=== PATIENT | male | born 1970 | race American Indian/Alaskan Native ===

== ENCOUNTER 2020-01-13 19:14 | Observation (INO) | payer OTHER ==
[2020-01-13 21:16] LABS: Basophils # (Auto) 0.1 K/mm3 (0.0-0.1); Eosinophils % (Auto) 0.1 % (0.0-4.3); Hematocrit 42.5 % (35.5-45.6); Hemoglobin 14.7 gm/dl (11.8-15.2); Lymphocytes % (Auto) 30.2 % (13.4-35.0); Mean Corpuscular HGB Conc 35 % (32-34); Mean Corpuscular Volume 98 fl (84-94); Monocytes # (Auto) 0.3 K/mm3 (0.0-0.8); Monocytes % (Auto) 9.9 % (0.0-7.3); Platelet Count 132 K/mm3 (140-440); Red Blood Count 4.33 M/mm3 (3.65-5.03); Red Cell Distribution Width 15.2 % (13.2-15.2)
[2020-01-13 21:25] LABS: Alanine Aminotransferase 35 units/L (7-56); Albumin 3.7 g/dL (3.9-5); Blood Urea Nitrogen 8 mg/dL (9-20); Calcium 8.9 mg/dL (8.4-10.2); Hemolysis Index 9
[2020-01-13 21:35] LABS: BUN/Creatinine Ratio 13
--- NOTE | 2020-01-14 00:37 | Emergency Department Report ---
ED General Adult HPI - General Chief complaint: Abdominal Pain Stated complaint: SWOLLEN STOMACH AND LEGS PUI?: No Time Seen by Provider: 01/14/20 00:21 Source: patient Mode of arrival: Ambulatory Limitations: No Limitations - History of Present Illness Initial comments: Patient is a 49-year-old male that presents emergency room with complaints of abdominal distention. Patient states he was admitted to the hospital 6 weeks ag o for for the same abdominal swelling. Patient states this time however his abdomen is more swelling and his legs are swollen as well. Patient dates the last time was only his stomach. Patient states the swelling started approximately 1 week ago and is worsening. Patient states that he has a ful lness and a pressure to his abdomen. Patient states the discomfort is a 1 out of 10. Pain states is better with rest and worse with movement. Patient states last time he was here late night drainage they just gave him pills to decrease the ascites. Patient denies chest pain or shortness of breath. Patient denies fever and chills. Patient denies recent travel. Patient denies recent international travel. Patient denies exposure to the novel coronavirus. Patient denies sick contacts. Patient denies fever and chills. Patient denies cough. Patient denies diarrhea. Patient denies coming in contact with anybody with symptoms of the novel coronavirus. -: Sudden Severity scale (0 -10): 1 Quality: aching Consistency: constant Improves with: rest Worsens with: movement Associated Symptoms: denies: confusion, chest pain, cough, diaphoresis, fever/chills, headaches, loss of appetite, malaise, nausea/vomiting, rash, seizure, shortness of breath, syncope, weakness - Related Data Previous Rx's Medication Instructions Recorded Last Taken Type Albuterol Mdi (or & Nicu Only) 2 puff IH QID PRN #8.5 gram 11/21/19 Unknown Rx [ProAir HFA Inhaler] Budesonide/Formoterol Fumarate 10.2 gm IH BID #1 hfa.aer.ad 11/21/19 Unknown Rx [Symbicort 80-4.5 Mcg Inhaler] Fluconazole [Diflucan TAB] 200 mg PO QDAY #14 tablet 11/21/19 Unknown Rx Lidocaine Viscous 2% 15 ml PO Q8HR PRN 14 Days 11/21/19 Unknown Rx Metoprolol [Lopressor TAB] 25 mg PO BID #60 tablet 11/21/19 Unknown Rx Potassium Chloride [K-Dur] 20 meq PO QDAY #4 tablet 11/21/19 Unknown Rx Allergies Allergy/AdvReac Type Severity Reaction Status Date / Time No Known Allergies Allergy Verified 11/16/19 18:32 ED Review of Systems ROS: Stated complaint: SWOLLEN STOMACH AND LEGS Other details as noted in HPI Constitutional: denies: chills, fever Eyes: denies: eye pain, eye discharge, vision change ENT: denies: ear pain, throat pain Respiratory: denies: cough, shortness of breath, wheezing Cardiovascular: edema. denies: chest pain, palpitations Endocrine: no symptoms reported Gastrointestinal: as per HPI, abdominal pain, other. denies: nausea, vomiting, diarrhea Genitourinary: denies: urgency, dysuria Musculoskeletal: denies: back pain, joint swelling, arthralgia Skin: denies: rash, lesions Neurological: denies: headache, weakness, paresthesias Psychiatric: denies: anxiety, depression Hematological/Lymphatic: denies: easy bleeding, easy bruising ED Past Medical Hx - Past Medical History Previous Medical History?: Yes Hx COPD: Yes Additional medical history: Herpes 1 - Surgical History Past Surgical History?: Yes Additional Surgical History: left leg - Family History Family history: no significant - Social History Smoking Status: Current Every Day Smoker Substance Use Type: Marijuana - Medications Home Medications: Home Medications Medication Instructions Recorded Confirmed Last Taken Type Albuterol Mdi (or & Nicu Only) 2 puff IH QID PRN #8.5 gram 11/21/19 Unknown Rx [ProAir HFA Inhaler] Budesonide/Formoterol Fumarate 10.2 gm IH BID #1 hfa.aer.ad 11/21/19 Unknown Rx [Symbicort 80-4.5 Mcg Inhaler] Fluconazole [Diflucan TAB] 200 mg PO QDAY #14 tablet 11/21/19 Unknown Rx Lidocaine Viscous 2% 15 ml PO Q8HR PRN 14 Days 11/21/19 Unknown Rx Metoprolol [Lopressor TAB] 25 mg PO BID #60 tablet 11/21/19 Unknown Rx Potassium Chloride [K-Dur] 20 meq PO QDAY #4 tablet 11/21/19 Unknown Rx ED Physical Exam - General Limitations: No Limitations General appearance: alert, in no apparent distress - Head Head exam: Present: atraumatic, normocephalic - Eye Eye exam: Present: normal appearance - ENT ENT exam: Present: mucous membranes moist - Neck Neck exam: Present: normal inspection - Respiratory Respiratory exam: Present: normal lung sounds bilaterally. Absent: respiratory distress, chest wall tenderness, accessory muscle use, decreased breath sounds - Cardiovascular Cardiovascular Exam: Present: regular rate, normal rhythm. Absent: systolic murmur, diastolic murmur, rubs, gallop - GI/Abdominal GI/Abdominal exam: Present: soft, distended, normal bowel sounds. Absent: tenderness, guarding, rebound - Rectal Rectal exam: Present: deferred - Extremities Exam Extremities exam: Present: normal inspection, full ROM, pedal edema. Absent: tenderness, normal capillary refill, calf tenderness - Back Exam Back exam: Present: normal inspection - Neurological Exam Neurological exam: Present: alert, oriented X3 - Psychiatric Psychiatric exam: Present: normal affect, normal mood - Skin Skin exam: Present: warm, dry, intact, normal color. Absent: rash ED Course Vital Signs 01/13/20 01/14/20 19:48 00:38 Temperature 98.1 F Pulse Rate 100 H 96 H Respiratory 19 16 Rate Blood Pressure 121/98 Blood Pressure 142/110 [Right] O2 Sat by Pulse 92 98 Oximetry - Reevaluation(s) Reevaluation #1: I discussed all results with patient. I discussed plan of care with patient. Patient agrees with plan of care and admission. Patient to be admitted to the hospitalist service. 01/14/20 02:02 - Consultations Consultation #1: Hospitalist consulted for admission. Hospitalist to admit patient. 01/14/20 02:02 ED Medical Decision Making - Lab Data Result diagrams: 01/13/20 20:44 01/13/20 20:44 - Radiology Data Radiology results: report reviewed, image reviewed interpreted by me: CHF findings on chest x-ray. CHEST 1 VIEW INDICATION / CLINICAL INFORMATION: swelling. elvated bnp. COMPARISON: 11/18/2019 FINDINGS: SUPPORT DEVICES: None. HEART / MEDIASTINUM: No significant abnormality. LUNGS / PLEURA: Prominent interstitial markings No pneumothorax. ADDITIONAL FINDINGS: No significant additional findings. IMPRESSION: The interstitial markings are prominent but less so than on 11/18/2019. No other significant abnormality. - Medical Decision Making Patient is a 49-year-old male that presents emergency room with complaints of abdominal distention, lower extremity edema. Patient claims been going on for a week. Patient had this x6 weeks ago was seen in this hospital. Patient finding consistent with CHF, anasarca, interstitial markings on chest x-ray, lower extremity edema. Patient's labs unremarkable except for hyponatremia and abnormal came and elevated BNP. patient admitted to the hospitalist service. - Differential Diagnosis CHF, anasarca, edema swelling, abdominal distention Critical Care Time: Yes Critical care time in (mins) excluding proc time.: 35 Critical care attestation.: If time is entered above; I have spent that time in minutes in the direct care of this critically ill patient, excluding procedure time. Critical Care Time: 35 minutes ED Disposition Clinical Impression: Acute hyponatremia, Anasarca, Lower extremity edema, Abdominal distention CHF (congestive heart failure) Qualifiers: Heart failure type: unspecified Heart failure chronicity: acute Qualified Code(s): I50.9 - Heart failure, unspecified Abdominal pain Qualifiers: Abdominal location: generalized Qualified Code(s): R10.84 - Generalized abdominal pain Disposition: -09 OP ADMIT IP TO THIS HOSP Is pt being admited?: Yes Does the pt Need Aspirin: No Condition: Critical Time of Disposition: 02:00
--- NOTE | 2020-01-14 01:45 | XRay Report ---
CHEST 1 VIEW INDICATION / CLINICAL INFORMATION: swelling. elvated bnp. COMPARISON: 11/18/2019 FINDINGS: SUPPORT DEVICES: None. HEART / MEDIASTINUM: No significant abnormality. LUNGS / PLEURA: Prominent interstitial markings No pneumothorax. ADDITIONAL FINDINGS: No significant additional findings. IMPRESSION: The interstitial markings are prominent but less so than on 11/18/2019. No other significant abnormali ty. Signer Name: Mika Caballero MD FACR Signed: 01/14/2020 1:41 AM Workstation Name: [email or web address]
[2020-01-14] MEDS ORDERED: ACETAMINOPHEN 325 MG TAB PO PRN (02:08)
[2020-01-14] MEDS ORDERED: MAGNESIUM HYDROXIDE (MOM) ORAL LIQD UDC PO PRN (02:08)
[2020-01-14] MEDS ORDERED: ONDANSETRON 4 MG/2 ML INJ IV PRN (02:08)
--- NOTE | 2020-01-14 02:20 | History and Physical Report ---
History of Present Illness Date of examination: 01/14/20 Date of admission: 01/14/2020 Chief complaint: Lower extremity swelling Abdominal swelling History of present illness: 49-year-old -[place] male with known history of CHF, COPD presents to the emergency room today complaining of lower extremity swelling and abdominal swelling. Swelling has been ongoing for about a week and has been having fullness and pressure around his abdomen. Patient denies any chest pain, no nausea vomiting, no shortness of breath, no fever or chills, no headache or dizziness. Patient denies any sick contacts and no recent travel. He denies any contact with anyone with COVID-19. Patient was recently diagnosed with CHF and was supposed to follow-up with [facility] but has not had a chance to make an appointment. Work-up in the emergency room today reveals elevated BNP and also pulmonary edema on the chest x-ray Past History Past Medical History: COPD, other (Herpes 1) Past Surgical History: Other (Left leg surgery) Social history: smoking (Current daily smoking), other (Occasional Marijuana) Family history: no significant family history Medications and Allergies Allergies Allergy/AdvReac Type Severity Reaction Status Date / Time No Known Allergies Allergy Verified 11/16/19 18:32 Home Medications Medication Instructions Recorded Confirmed Last Taken Type Albuterol Mdi (or & Nicu Only) 2 puff IH QID PRN #8.5 gram 11/21/19 Unknown Rx [ProAir HFA Inhaler] Budesonide/Formoterol Fumarate 10.2 gm IH BID #1 hfa.aer.ad 11/21/19 Unknown Rx [Symbicort 80-4.5 Mcg Inhaler] Fluconazole [Diflucan TAB] 200 mg PO QDAY #14 tablet 11/21/19 Unknown Rx Lidocaine Viscous 2% 15 ml PO Q8HR PRN 14 Days 11/21/19 Unknown Rx Metoprolol [Lopressor TAB] 25 mg PO BID #60 tablet 11/21/19 Unknown Rx Potassium Chloride [K-Dur] 20 meq PO QDAY #4 tablet 11/21/19 Unknown Rx Active Meds: Active Medications Acetaminophen (Tylenol) 650 mg PO Q4H PRN PRN Reason: Pain MILD(1-3)/Fever >100.5/CRAIG Furosemide (Lasix) 40 mg IV BID@0600,1800 CONSUELO Heparin Sodium (Porcine) (Heparin) 5,000 unit SUB-Q Q8HR CONSUELO Magnesium Hydroxide (Milk Of Magnesia) 30 ml PO Q4H PRN PRN Reason: Constipation Ondansetron HCl (Zofran) 4 mg IV Q8H PRN PRN Reason: Nausea And Vomiting Sodium Chloride (Sodium Chloride Flush Syringe 10 Ml) 10 ml IV BID CONSUELO Sodium Chloride (Sodium Chloride Flush Syringe 10 Ml) 10 ml IV PRN PRN PRN Reason: LINE FLUSH Review of Systems Constitutional: no fever, no chills Ears, nose, mouth and throat: no nasal congestion, no sore throat Cardiovascular: leg edema, no chest pain, no palpitations Respiratory: no cough, no shortness of breath Gastrointestinal: no abdominal pain, no nausea, no vomiting, no diarrhea Genitourinary Male: no dysuria, no hematuria Musculoskeletal: no neck pain, no low back pain Integumentary: no rash, no pruritis Neurological: no headaches, no confusion Exam - Constitutional Vitals: Temp Pulse Resp BP Pulse Ox 98.1 F 96 H 16 142/110 98 01/13/20 19:48 01/14/20 00:38 01/14/20 00:38 01/14/20 00:38 01/14/20 00:38 General appearance: Present: no acute distress, well-nourished - EENT Eyes: Present: PERRL, EOM intact ENT: hearing intact, clear oral mucosa, dentition normal - Neck Neck: Present: supple, normal ROM - Respiratory Respiratory effort: normal Respiratory: bilateral: CTA - Cardiovascular Rhythm: regular Heart Sounds: Present: S1 & S2. Absent: gallop, systolic murmur, diastolic murmur, rub - Extremities Extremities: no ischemia, Full ROM Extremity abnormal: edema (1+ bilateral lower extremity edema), clubbing (finger) Peripheral Pulses: within normal limits - Abdominal General gastrointestinal: Present: soft, non-tender, distended (Mildly d istended.), normal bowel sounds - Integumentary Integumentary: Present: clear, warm, dry - Musculoskeletal Musculoskeletal: strength equal bilaterally - Psychiatric Psychiatric: appropriate mood/affect, intact judgment & insight - Neurologic Neurologic: CNII-XII intact, no focal deficits, moves all extremities Results - Labs CBC & Chem 7: 01/13/20 20:44 01/13/20 20:44 Labs: Abnormal lab results 01/13/20 01/13/20 Range/Units 20:44 20:44 WBC 3.2 L (4.5-11.0) K/mm3 MCV 98 H (84-94) fl MCH 34 H (28-32) pg MCHC 35 H (32-34) % Plt Count 132 L (140-440) K/mm3 [place]air % (Auto) 9.9 H (0.0-7.3) % Lymph # 1.0 L (1.2-5.4) K/mm3 Sodium 124 L (137-145) mmol/L Potassium 3.5 L (3.6-5.0) mmol/L Chloride 87.2 L (98-107) mmol/L BUN 8 L (9-20) mg/dL Creatinine 0.6 L (0.8-1.3) mg/dL Glucose 74 L (75-100) mg/dL Total Bilirubin 2.50 H (0.1-1.2) mg/dL AST 65 H (5-40) units/L NT-Pro-B Natriuret Pep 3058 H (0-900) pg/mL Albumin 3.7 L (3.9-5) g/dL Assessment and Plan - Patient Problems (1) CHF (congestive heart failure) Current Visit: Yes Status: Acute Qualifiers: Heart failure type: unspecified Heart failure chronicity: acute Qualified Code(s): I50.9 - Heart failure, unspecified Plan to address problem: Patient admitted and placed on telemetry. Will place on diuretics and monitor input and output. Will also monitor daily weights. Patient will be scheduled for echocardiogram. (2) DVT prophylaxis Current Visit: No Status: Acute Plan to address problem: Patient placed on subcutaneous heparin (3) Full code status Current Visit: No Status: Acute
[2020-01-14 02:51] LABS: Creatine Kinase MB 4.7 ng/mL (0.0-4.0)
[2020-01-14] MEDS: FUROSEMIDE 40 MG/4 ML INJ IV SCH ×2 (05:54→17:07)
[2020-01-14] MEDS: HEPARIN 5,000 UNIT/1 ML VIAL SUB-Q SCH ×3 (05:54→22:09)
--- NOTE | 2020-01-14 10:52 | Event Note ---
Date: 01/14/20 Patient seen and examined. This is a follow-up from an admission earlier this morning. We will continue to plan as outlined in H&P. Total visit time equals 35 minutes with greater than 50% spent on coordination of care and counseling.
--- NOTE | 2020-01-14 11:43 | Progress Note ---
Subjective Date of service: 01/14/20 Interval history: CONSULT DICTATED Objective Vital Signs Temp Pulse Pulse Pulse Resp BP BP 01/14/20 11:09 89 120/91 01/14/20 10:10 87 87 17 01/14/20 07:17 97.9 F 91 H 18 146/102 01/14/20 05:01 20 01/14/20 03:18 98.1 F 93 H 20 151/110 01/14/20 03:09 92 H 01/14/20 00:38 96 H 16 142/110 01/13/20 19:48 98.1 F 100 H 19 121/98 Pulse Ox 01/14/20 11:09 91 01/14/20 10:10 98 01/14/20 07:17 94 01/14/20 05:01 01/14/20 03:18 93 01/14/20 03:09 01/14/20 00:38 98 01/13/20 19:48 92 - Labs and Meds Cardiac Enzymes 01/13/20 01/14/20 Range/Units 20:44 Unknown AST 65 H (5-40) units/L CK-MB (CK-2) 4.7 H (0.0-4.0) ng/mL CBC 01/13/20 Range/Units 20:44 WBC 3.2 L (4.5-11.0) K/mm3 RBC 4.33 (3.65-5.03) M/mm3 Hgb 14.7 (11.8-15.2) gm/dl Hct 42.5 (35.5-45.6) % Plt Count 132 L (140-440) K/mm3 Lymph # 1.0 L (1.2-5.4) K/mm3 [place] # 0.3 (0.0-0.8) K/mm3 Eos # 0.0 (0.0-0.4) K/mm3 Baso # 0.1 (0.0-0.1) K/mm3 Comprehensive Metabolic Panel 01/13/20 Range/Units 20:44 Sodium 124 L (137-145) mmol/L Potassium 3.5 L (3.6-5.0) mmol/L Chloride 87.2 L (98-107) mmol/L Carbon Dioxide 22 (22-30) mmol/L BUN 8 L (9-20) mg/dL Creatinine 0.6 L (0.8-1.3) mg/dL Glucose 74 L (75-100) mg/dL Calcium 8.9 (8.4-10.2) mg/dL AST 65 H (5-40) units/L ALT 35 (7-56) units/L Alkaline Phosphatase 98 (35-129) units/L Total Protein 8.0 (6.3-8.2) g/dL Albumin 3.7 L (3.9-5) g/dL
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
[2020-01-14] MEDS: LISINOPRIL 20 MG TAB PO SCH (12:08)
[2020-01-14] MEDS: POTASSIUM CHLORIDE ER 20 MEQ TAB PO SCH ×2 (12:08→22:09)
[2020-01-14] MEDS: carvediloL 3.125 MG TAB PO SCH ×2 (12:08→22:09)
[2020-01-15] MEDS: HEPARIN 5,000 UNIT/1 ML VIAL SUB-Q SCH ×3 (06:12→21:38)
[2020-01-15] MEDS: FUROSEMIDE 40 MG/4 ML INJ IV SCH ×2 (06:12→17:22)
[2020-01-15 08:00] LABS: Hematocrit 36.6 % (35.5-45.6); Hemoglobin 12.8 gm/dl (11.8-15.2); Mean Corpuscular HGB Conc 35 % (32-34); Mean Corpuscular Volume 97 fl (84-94); Platelet Count 117 K/mm3 (140-440); Red Blood Count 3.76 M/mm3 (3.65-5.03); Red Cell Distribution Width 14.9 % (13.2-15.2)
[2020-01-15 08:09] LABS: INR 1.18 (0.87-1.13)
[2020-01-15 08:20] LABS: Blood Urea Nitrogen 11 mg/dL (9-20); Calcium 8.2 mg/dL (8.4-10.2); Hemolysis Index 6
[2020-01-15 08:36] LABS: BUN/Creatinine Ratio 18
[2020-01-15 09:01] LABS: Anisocytosis 1+; Basophils % (Manual) 0 % (0.0-1.8); Eosinophils % (Manual) 0 % (0.0-4.3); Ovalocytes Few; Platelet Estimate Consistent w Auto; Spherocytes Rare; Target Cells Few; Total Cells Counted 100
[2020-01-15] MEDS: carvediloL 3.125 MG TAB PO SCH ×2 (09:06→21:37)
[2020-01-15] MEDS: POTASSIUM CHLORIDE ER 20 MEQ TAB PO SCH ×2 (09:06→21:37)
[2020-01-15] MEDS: LISINOPRIL 20 MG TAB PO SCH (09:06)
--- NOTE | 2020-01-15 09:36 | Progress Note ---
Assessment and Plan Assessment and plan: Cor pulmonale. Pulmonary consultation pending. Etiology likely secondary to severe emphysema. Echocardiogram reveals right ventricular with moderate dilatation and hypertrophy. The right ventricular global systolic function is moderately reduced. Right atrium moderately to severely dilated. Severe COPD/emphysema. Bronchodilators/nebulizer treatment. Pulmonary consultation pending. Patient with recent CT of chest November of this year. Acute on chronic systolic heart failure. Continue Lasix, Coreg and lisinopril. Cardiology following. Biventricular failure. As above. Pulmonary hypertension. As above Tobacco abuse. Patient with a [id number] history. Patient started smoking at age 7. Smoking cessation counseling. History Interval history: No new issues overnight. Hospitalist Physical - Constitutional Vitals: Temp Pulse Resp BP Pulse Ox 98.9 F 76 18 118/82 95 01/15/20 09:11 01/15/20 09:06 01/15/20 05:33 01/15/20 09:06 01/15/20 05:33 General appearance: Present: no acute distress, well-nourished - EENT Eyes: Present: PERRL, EOM intact ENT: hearing intact, clear oral mucosa, dentition normal - Neck Neck: Present: supple, normal ROM - Respiratory Respiratory effort: normal Respiratory: bilateral: CTA - Cardiovascular Rhythm: regular Heart Sounds: Present: S1 & S2. Absent: gallop, rub - Extremities Extremities: no ischemia, No edema, Full ROM - Abdominal General gastrointestinal: soft, non-tender, non-distended, normal bowel sounds - Integumentary Integumentary: Present: clear, warm, dry - Neurologic Neurologic: CNII-XII intact, moves all extremities HEART Score - HEART Score Troponin: Troponin T 0.014 ng/mL (0.00-0.029) 01/14/20 Unknown Results - Labs CBC & Chem 7: 01/15/20 06:35 01/15/20 06:35 Labs: Laboratory Last Values WBC 2.8 K/mm3 (4.5-11.0) L 01/15/20 06:35 RBC 3.76 M/mm3 (3.65-5.03) 01/15/20 06:35 Hgb 12.8 gm/dl (11.8-15.2) 01/15/20 06:35 Hct 36.6 % (35.5-45.6) 01/15/20 06:35 MCV 97 fl (84-94) H 01/15/20 06:35 MCH 34 pg (28-32) H 01/15/20 06:35 MCHC 35 % (32-34) H 01/15/20 06:35 RDW 14.9 % (13.2-15.2) 01/15/20 06:35 Plt Count 117 K/mm3 (140-440) L 01/15/20 06:35 Lymph % (Auto) 30.2 % (13.4-35.0) 01/13/20 20:44 Tucker % (Auto) 9.9 % (0.0-7.3) H 01/13/20 20:44 Eos % (Auto) 0.1 % (0.0-4.3) 01/13/20 20:44 Baso % (Auto) [employer] 01/13/20 20:44 Lymph # 1.0 K/mm3 (1.2-5.4) L 01/13/20 20:44 Tucker # 0.3 K/mm3 (0.0-0.8) 01/13/20 20:44 Eos # 0.0 K/mm3 (0.0-0.4) 01/13/20 20:44 Baso # 0.1 K/mm3 (0.0-0.1) 01/13/20 20:44 Add Manual Diff Complete 01/15/20 06:35 Total Counted 100 01/15/20 06:35 Seg Neutrophils % 57.6 % (40.0-70.0) 01/13/20 20:44 Seg Neuts % (Manual) 57.0 % (40.0-70.0) 01/15/20 06:35 Band Neutrophils % 1.0 % 01/15/20 06:35 Lymphocytes % (Manual) 31.0 % (13.4-35.0) 01/15/20 06:35 Reactive Lymphs % (Man) 0 % 01/15/20 06:35 Monocytes % (Manual) 11.0 % (0.0-7.3) H 01/15/20 06:35 Eosinophils % (Manual) 0 % (0.0-4.3) 01/15/20 06:35 Basophils % (Manual) 0 % (0.0-1.8) 01/15/20 06:35 Metamyelocytes % 0 % 01/15/20 06:35 Myelocytes % 0 % 01/15/20 06:35 Promyelocytes % 0 % 01/15/20 06:35 Blast Cells % 0 % 01/15/20 06:35 Nucleated RBC % Not Reportable 01/15/20 06:35 Seg Neutrophils # 1.8 K/mm3 (1.8-7.7) 01/13/20 20:44 Seg Neutrophils # Man 1.6 K/mm3 (1.8-7.7) L 01/15/20 06:35 Band Neutrophils # 0.0 K/mm3 01/15/20 06:35 Lymphocytes # (Manual) 0.9 K/mm3 (1.2-5.4) L 01/15/20 06:35 Abs React Lymphs (Man) 0.0 K/mm3 01/15/20 06:35 Monocytes # (Manual) 0.3 K/mm3 (0.0-0.8) 01/15/20 06:35 Eosinophils # (Manual) 0.0 K/mm3 (0.0-0.4) 01/15/20 06:35 Basophils # (Manual) 0.0 K/mm3 (0.0-0.1) 01/15/20 06:35 Metamyelocytes # 0.0 K/mm3 01/15/20 06:35 Myelocytes # 0.0 K/mm3 01/15/20 06:35 Promyelocytes # 0.0 K/mm3 01/15/20 06:35 Blast Cells # 0.0 K/mm3 01/15/20 06:35 WBC Morphology Not Reportable 01/15/20 06:35 Hypersegmented Neuts Not Reportable 01/15/20 06:35 Hyposegmented Neuts Not Reportable 01/15/20 06:35 Hypogranular Neuts Not Reportable 01/15/20 06:35 Smudge Cells Not Reportable 01/15/20 06:35 Toxic Granulation Not Reportable 01/15/20 06:35 Toxic Vacuolation Not Reportable 01/15/20 06:35 Dohle Bodies Not Reportable 01/15/20 06:35 Pelger-Huet Anomaly Not Reportable 01/15/20 06:35 Raul Rods Not Reportable 01/15/20 06:35 Platelet Estimate Consistent w auto 01/15/20 06:35 Clumped Platelets Not Reportable 01/15/20 06:35 Plt Clumps, EDTA Not Reportable 01/15/20 06:35 Large Platelets Not Reportable 01/15/20 06:35 Giant Platelets Not Reportable 01/15/20 06:35 Platelet Satelliting Not Reportable 01/15/20 06:35 Plt Morphology Comment Not Reportable 01/15/20 06:35 RBC Morphology Not Reportable 01/15/20 06:35 Dimorphic RBCs Not Reportable 01/15/20 06:35 Polychromasia Not Reportable 01/15/20 06:35 Hypochromasia Not Reportable 01/15/20 06:35 Poikilocytosis Not Reportable 01/15/20 06:35 Anisocytosis 1+ 01/15/20 06:35 Microcytosis Not Reportable 01/15/20 06:35 Macrocytosis Not Reportable 01/15/20 06:35 Spherocytes Rare 01/15/20 06:35 Pappenheimer Bodies Not Reportable 01/15/20 06:35 Sickle Cells Not Reportable 01/15/20 06:35 Target Cells Few 01/15/20 06:35 Tear Drop Cells Not Reportable 01/15/20 06:35 Ovalocytes Few 01/15/20 06:35 Helmet Cells Not Reportable 01/15/20 06:35 Norris-Heartwell Bodies Not Reportable 01/15/20 06:35 Flippin Rings Not Reportable 01/15/20 06:35 Taniya Cells Not Reportable 01/15/20 06:35 Bite Cells Not Reportable 01/15/20 06:35 Crenated Cell Not Reportable 01/15/20 06:35 Elliptocytes Not Reportable 01/15/20 06:35 Acanthocytes (Spur) Not Reportable 01/15/20 06:35 Rouleaux Not Reportable 01/15/20 06:35 Hemoglobin C Crystals Not Reportable 01/15/20 06:35 Schistocytes Not Reportable 01/15/20 06:35 Malaria parasites Not Reportable 01/15/20 06:35 Tani Bodies Not Reportable 01/15/20 06:35 Hem Pathologist Commnt No 01/15/20 06:35 PT 15.3 Sec. (12.2-14.9) H 01/15/20 06:35 INR 1.18 (0.87-1.13) H 01/15/20 06:35 Sodium 125 mmol/L (137-145) L 01/15/20 06:35 Potassium 3.7 mmol/L (3.6-5.0) 01/15/20 06:35 Chloride 90.9 mmol/L (98-107) L 01/15/20 06:35 Carbon Dioxide 22 mmol/L (22-30) 01/15/20 06:35 Anion Gap 16 mmol/L 01/15/20 06:35 BUN 11 mg/dL (9-20) 01/15/20 06:35 Creatinine 0.6 mg/dL (0.8-1.3) L 01/15/20 06:35 Estimated GFR > 60 ml/min 01/15/20 06:35 BUN/Creatinine Ratio 18 % 01/15/20 06:35 Glucose 88 mg/dL (75-100) 01/15/20 06:35 Calcium 8.2 mg/dL (8.4-10.2) L 01/15/20 06:35 Total Bilirubin 2.50 mg/dL (0.1-1.2) H 01/13/20 20:44 AST 65 units/L (5-40) H 01/13/20 20:44 ALT 35 units/L (7-56) 01/13/20 20:44 Alkaline Phosphatase 98 units/L (35-129) 01/13/20 20:44 Total Creatine Kinase 134 units/L (55-170) 01/14/20 Unknown CK-MB (CK-2) 4.7 ng/mL (0.0-4.0) H 01/14/20 Unknown CK-MB (CK-2) Rel Index 3.5 (0-4) 01/14/20 Unknown Troponin T 0.014 ng/mL (0.00-0.029) 01/14/20 Unknown NT-Pro-B Natriuret Pep 3058 pg/mL (0-900) H 01/13/20 20:44 Total Protein 8.0 g/dL (6.3-8.2) 01/13/20 20:44 Albumin 3.7 g/dL (3.9-5) L 01/13/20 20:44 Albumin/Globulin Ratio 0.9 % 01/13/20 20:44 Lipase 24 units/L (13-60) 01/13/20 20:44 - Diagnostic Impressions Diagnostic Impressions: Echocardiogram 01/14/20 02:15 Transthoracic Echocardiogram Indication: Swelling BP: 151/110 HR: 93 Conclusions *RVE SEVERE LAMIN WITH SEVERE TR *MILD PULM HTN RVH *MOD. RV DYSFUNCTION *SMALL PERICARDIAL EFFUSION *MILD LVH LV DYSFUNCTION *FLATTENING OF THE SEPTUM CONSISTENT WITH *RV PRESSURE VOL. OVERLOAD Findings Left Ventricle: The left ventricular chamber size is normal. Mild concentric left ventricular hypertrophy is observed. Mild global hypokinesis of the left ventricle is observed. Global left ventricular systolic function is mildly decreased. The estimated ejection fraction is 45-50%. There is septal flattening of the interventricular septum consistent with right ventricular volume or pressure overload. Abnormal left ventricular diastolic filling is observed, consistent with impaired relaxation. Left Atrium: The left atrial chamber size is normal. Right Ventricle: The right ventricle wall thickness is mildly increased. The right ventricle is moderately dilated. The right ventricular global systolic function is moderately reduced. Right Atrium: The right atrium is moderate to severely dilated. Aortic Valve: The aortic valve structure is normal. There is no evidence of aortic regurgitation. Mitral Valve: The mitral valve leaflets appear normal. There is trace of mitral regurgitation. Tricuspid Valve: The tricuspid valve leaflets are normal. There is severe tricuspid regurgitation. The right ventricular systolic pressure is calculated at 49 mmHg. Pulmonic Valve: The pulmonic valve appears normal. There is trace pulmonic regurgitation. Pericardium: There is a small pericardial effusion. Aorta: The aorta appears normal. Venous: The inferior vena cava appears normal in size. There is no change in the dimension of the inferior vena cava with respiration consistent with markedly increased right atrial pressure. Measurements Chambers 2D Name Value Normal Range IVSd (2D) 0.8 cm (0.6 - 1.1) LVPWd (2D) 0.68 cm (0.6 - 1.1) LVIDd (2D) 3.17 cm (3.7 - 5.6) LVIDs (2D) 2.51 cm (2 - 3.8) LV FS (2D) 20.8 % - EF Teichholz (2D) 43.64 % - Ao root diameter (2D) 3.42 cm (2 - 3.7) Volumes/Mass Name Value Normal Range LA ESV SP 4CH (A/L) 16.85 ml - LA ESV SP 2CH (A/L) 23.85 ml - LA ESV BP (A/L) 25.45 ml - LA ESV BP (A/L) index 13.98 ml/m2 - LA ESV SP 4CH (MOD) 15.32 ml - LA ESV SP 2CH (MOD) 23.05 ml - LA ESV BP (MOD) 23.17 ml - LA ESV BP (MOD) index 12.73 ml/m2 - Diastolic/Systolic Function Name Value Normal Range MV E-wave Vmax 0.6 m/sec - MV deceleration time 173.28 msec - MV A-wave Vmax 0.5 m/sec - MV E:A ratio 1.19 ratio - Aortic Valve Name Value Normal Range AV Vmax 0.69 m/sec - AV VTI 9.33 cm - AV peak gradient 1.91 mmHg - AV mean gradient 1.2 mmHg - LVOT diameter 2.02 cm - LVOT Vmax 0.69 m/sec - LVOT VTI 10.24 cm - LVOT peak gradient 1.91 mmHg - LVOT mean gradient 1.1 mmHg - SV LVOT 32.84 ml - ITZEL (continuity Vmax) 3.21 cm2 - ITZEL (continuity VTI) 3.52 cm2 - Tricuspid Valve Name Value Normal Range TR Vmax 3.21 m/sec - TR peak gradient 41 mmHg - RAP 8 mmHg - RVSP 49 mmHg - IVC diameter 2.25 cm (1.2 - 2.3) Pulmonic Valve/Qp:Qs Name Value Normal Range PV Vmax 0.45 m/sec - PV peak gradient 0.82 mmHg - NV end-diastolic Vmax 1.61 m/sec - PV acceleration time 76.12 msec - Carpio/IV: Voiding Method Urinal IV Catheter Type [Left Peripheral IV Antecubital] Active Medications - Current Medications Current Medications: Generic Name Dose Route Start Last Admin Trade Name Freq PRN Reason Stop Dose Admin Acetaminophen 650 mg 01/14/20 02:08 Tylenol PO Q4H PRN Pain MILD(1-3)/Fever >100.5/CRAIG Carvedilol 3.125 mg 01/14/20 12:00 08/09/20 09:06 Coreg PO 3.125 mg BID CONSUELO Administration Furosemide 40 mg 01/14/20 06:00 01/15/20 06:12 Lasix IV 40 mg BID@0600,1800 CONSUELO Administration Heparin Sodium (Porcine) 5,000 unit 01/14/20 06:00 01/15/20 06:12 Heparin SUB-Q 5,000 unit Q8HR CONSUELO Administration Lisinopril 20 mg 01/14/20 12:00 01/15/20 09:06 Zestril PO 20 mg QDAY CONSUELO Administration Magnesium Hydroxide 30 ml 01/14/20 02:08 Milk Of Magnesia PO Q4H PRN Constipation Ondansetron HCl 4 mg 01/14/20 02:08 Zofran IV Q8H PRN Nausea And Vomiting Potassium Chloride 20 meq 01/14/20 12:00 01/15/20 09:06 K-Dur PO 01/18/20 11:59 20 meq BID CONSUELO Administration Sodium Chloride 10 ml 01/14/20 10:00 01/15/20 09:06 Sodium Chloride Flush Syringe 10 Ml IV 10 ml BID CONSUELO Administration Sodium Chloride 10 ml 01/14/20 02:08 Sodium Chloride Flush Syringe 10 Ml IV PRN PRN LINE FLUSH
[2020-01-15] MEDS ORDERED: ALBUTEROL 2.5 MG/3 ML NEBU IH PRN (09:41)
--- NOTE | 2020-01-15 10:16 | Progress Note ---
Subjective Date of service: 01/15/20 Interval history: abd. distention improved Objective Vital Signs Temp Pulse Resp BP Pulse Ox 01/15/20 09:11 98.9 F 01/15/20 09:06 76 118/82 01/15/20 08:53 76 118/82 95 01/15/20 05:33 99.6 F 86 18 114/80 95 01/15/20 03:00 84 01/14/20 23:49 98.8 F 87 20 103/73 90 01/14/20 22:00 20 01/14/20 19:52 98.9 F 88 20 127/86 91 01/14/20 17:00 86 113/89 89 01/14/20 12:08 90 120/89 01/14/20 11:09 86 120/91 91 - Physical Examination General: No Apparent Distress HEENT: Positive: PERRL Neck: Positive: JVD/HJR Cardiac: Positive: Reg Rate and Rhythm Lungs: Positive: Rales, Rhonchi Neuro: Positive: Grossly Intact Abdomen: Positive: Ascites Extremities: Present: +1 Edema - Labs and Meds Coagulation 01/15/20 Range/Units 06:35 PT 15.3 H (12.2-14.9) Sec. INR 1.18 H (0.87-1.13) CBC 01/15/20 Range/Units 06:35 WBC 2.8 L (4.5-11.0) K/mm3 RBC 3.76 (3.65-5.03) M/mm3 Hgb 12.8 (11.8-15.2) gm/dl Hct 36.6 (35.5-45.6) % Plt Count 117 L (140-440) K/mm3 Comprehensive Metabolic Panel 01/15/20 Range/Units 06:35 Sodium 125 L (137-145) mmol/L Potassium 3.7 (3.6-5.0) mmol/L Chloride 90.9 L (98-107) mmol/L Carbon Dioxide 22 (22-30) mmol/L BUN 11 (9-20) mg/dL Creatinine 0.6 L (0.8-1.3) mg/dL Glucose 88 (75-100) mg/dL Calcium 8.2 L (8.4-10.2) mg/dL
--- NOTE | 2020-01-15 10:54 | Consultation ---
History of Present Illness History of present illness: patient with hx of copd on albuterol who comes in with sob. He was admitted recently and had workup which revealed positive PAULA and HIV negative. cough. He He now comes with sob. He denies any cough or pain. Workup showed mild cardiomyopathy and evidence of pulmonary HTN. Past History Past Medical History: COPD, other (Herpes 1, lupus) Past Surgical History: Other (Left leg surgery) Social history: smoking (Current daily smoking), other (Occasional Marijuana) Family history: no significant family history Medications and Allergies Allergies Allergy/AdvReac Type Severity Reaction Status Date / Time No Known Allergies Allergy Verified 11/16/19 18:32 Home Medications Medication Instructions Recorded Confirmed Last Taken Type Albuterol Mdi (or & Nicu Only) 2 puff IH QID PRN #8.5 gram 11/21/19 01/14/20 Unknown Rx [ProAir HFA Inhaler] Budesonide/Formoterol Fumarate 10.2 gm IH BID #1 hfa.aer.ad 11/21/19 01/14/20 Unknown Rx [Symbicort 80-4.5 Mcg Inhaler] Metoprolol [Lopressor TAB] 25 mg PO BID #60 tablet 11/21/19 01/14/20 Unknown Rx Active Meds: Active Medications Acetaminophen (Tylenol) 650 mg PO Q4H PRN PRN Reason: Pain MILD(1-3)/Fever >100.5/CRAIG Albuterol (Proventil) 2.5 mg IH Q4HRT PRN PRN Reason: Shortness Of Breath Carvedilol (Coreg) 3.125 mg PO BID [facility] Last Admin: 01/15/20 09:06 Dose: 3.125 mg Documented by: Furosemide (Lasix) 40 mg IV BID@0600,1800 [facility] Last Admin: 01/15/20 06:12 Dose: 40 mg Documented by: Heparin Sodium (Porcine) (Heparin) 5,000 unit SUB-Q Q8HR [facility] Last Admin: 01/15/20 06:12 Dose: 5,000 unit Documented by: Lisinopril (Zestril) 20 mg PO QDAY [facility] Last Admin: 01/15/20 09:06 Dose: 20 mg Documented by: Magnesium Hydroxide (Milk Of Magnesia) 30 ml PO Q4H PRN PRN Reason: Constipation Methylprednisolone Sodium Succinate (Solu-Medrol) 40 mg IV Q8HR [facility] Ondansetron HCl (Zofran) 4 mg IV Q8H PRN PRN Reason: Nausea And Vomiting Potassium Chloride (K-Dur) 20 meq PO BID [facility] Stop: 01/18/20 11:59 Last Admin: 01/15/20 09:06 Dose: 20 meq Documented by: Sodium Chloride (Sodium Chloride Flush Syringe 10 Ml) 10 ml IV BID [facility] Last Admin: 01/15/20 09:06 Dose: 10 ml Documented by: Sodium Chloride (Sodium Chloride Flush Syringe 10 Ml) 10 ml IV PRN PRN PRN Reason: LINE FLUSH Review of Systems Respiratory: shortness of breath Physical Examination Vital signs: Vital Signs Temp Pulse Resp BP Pulse Ox 98.1 F 100 H 19 121/98 92 01/13/20 19:48 01/13/20 19:48 01/13/20 19:48 01/13/20 19:48 01/13/20 19:48 General appearance: no acute distress, alert Eyes: non-icteric ENT: oropharynx moist Neck: supple Effort: normal Ascultation: Bilateral: diminished breath sounds Cardiovascular: regular rate and rhythm Gastrointestinal: normoactive bowel sounds, soft, non-distended Integumentary: normal Extremities: no cyanosis Results - Laboratory Findings CBC and BMP: 01/15/20 06:35 01/15/20 06:35 PT/INR, D-dimer PT 15.3 Sec. (12.2-14.9) H 01/15/20 06:35 INR 1.18 (0.87-1.13) H 01/15/20 06:35 Abnormal lab findings: Abnormal Labs 01/13/20 01/13/20 01/14/20 20:44 20:44 Unknown WBC 3.2 L MCV 98 H MCH 34 H MCHC 35 H Plt Count 132 L [place] % (Auto) 9.9 H Lymph # 1.0 L Monocytes % (Manual) Seg Neutrophils # Man Lymphocytes # (Manual) PT INR Sodium 124 L Potassium 3.5 L Chloride 87.2 L BUN 8 L Creatinine 0.6 L Glucose 74 L Calcium Total Bilirubin 2.50 H AST 65 H CK-MB (CK-2) 4.7 H NT-Pro-B Natriuret Pep 3058 H Albumin 3.7 L 01/15/20 01/15/20 01/15/20 06:35 06:35 06:35 WBC 2.8 L MCV 97 H MCH 34 H MCHC 35 H Plt Count 117 L [place] % (Auto) Lymph # Monocytes % (Manual) 11.0 H Seg Neutrophils # Man 1.6 L Lymphocytes # (Manual) 0.9 L PT 15.3 H INR 1.18 H Sodium 125 L Potassium Chloride 90.9 L BUN Creatinine 0.6 L Glucose Calcium 8.2 L Total Bilirubin AST CK-MB (CK-2) NT-Pro-B Natriuret Pep Albumin - Diagnostic Findings Chest x-ray: report reviewed, image reviewed Assessment and Plan - Patient Problems (1) Pulmonary hypertension Current Visit: Yes Status: Acute (2) Lupus Current Visit: Yes Status: Acute (3) Acute hyponatremia Current Visit: Yes Status: Acute (4) Anasarca Current Visit: Yes Status: Acute (5) CHF (congestive heart failure) Current Visit: Yes Status: Acute Qualifiers: Heart failure type: unspecified Heart failure chronicity: acute Qualified Code(s): I50.9 - Heart failure, unspecified
[2020-01-15] MEDS: methylPREDNISolone Sod Succinate 40 MG/1 ML INJ IV SCH ×2 (13:19→21:37)
[2020-01-16] MEDS: FUROSEMIDE 40 MG/4 ML INJ IV SCH ×2 (09:10→17:29)
[2020-01-16] MEDS: carvediloL 3.125 MG TAB PO SCH ×2 (09:11→21:35)
[2020-01-16] MEDS: POTASSIUM CHLORIDE ER 20 MEQ TAB PO SCH ×2 (09:11→21:35)
[2020-01-16] MEDS: LISINOPRIL 20 MG TAB PO SCH (09:11)
[2020-01-16] MEDS: HEPARIN 5,000 UNIT/1 ML VIAL SUB-Q SCH ×3 (09:11→21:37)
[2020-01-16] MEDS: methylPREDNISolone Sod Succinate 40 MG/1 ML INJ IV SCH ×3 (09:13→21:35)
--- NOTE | 2020-01-16 09:43 | Progress Note ---
Assessment and Plan Assessment and plan: Cor pulmonale. Pulmonary consultation pending. Etiology likely secondary to severe emphysema. Echocardiogram reveals right ventricular with moderate dilatation and hypertrophy. The right ventricular global systolic function is moderately reduced. Right atrium moderately to severely dilated. Severe COPD/emphysema. Bronchodilators/nebulizer treatment. Pulmonary consultation pending. Patient with recent CT of chest November of this year. Acute on chronic systolic heart failure. Continue Lasix, Coreg and lisinopril. Cardiology following. Biventricular failure. As above. Pulmonary hypertension. As above Tobacco abuse. Patient with a [id number] history. Patient started smoking at age 7. Smoking cessation counseling. 01/16/2020. Patient with predominantly right-sided heart failure/cor pulmonale with severe TR, right atrial enlargement and pulmonary hypertension. 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 Cardiology and pulmonary following. Pulmonary recommends CTA of chest. Right heart catheterization plans per cardiology History Interval history: No new issues overnight. Hospitalist Physical - Constitutional Vitals: Temp Pulse Resp BP Pulse Ox 96.6 F L 81 18 139/109 93 01/16/20 08:18 01/16/20 08:18 01/16/20 08:18 01/16/20 08:18 01/16/20 08:18 General appearance: Present: no acute distress, well-nourished - EENT Eyes: Present: PERRL, EOM intact ENT: hearing intact, clear oral mucosa, dentition normal - Neck Neck: Present: supple, normal ROM - Respiratory Respiratory effort: normal Respiratory: bilateral: CTA - Cardiovascular Rhythm: regular Heart Sounds: Present: S1 & S2. Absent: gallop, rub - Extremities Extremities: no ischemia, No edema, Full ROM - Abdominal General gastrointestinal: soft, non-tender, non-distended, normal bowel sounds - Integumentary Integumentary: Present: clear, warm, dry - Neurologic Neurologic: CNII-XII intact, moves all extremities HEART Score - HEART Score Troponin: Troponin T 0.014 ng/mL (0.00-0.029) 01/14/20 Unknown Results - Labs CBC & Chem 7: 01/15/20 06:35 01/15/20 06:35 Labs: Laboratory Last Values WBC 2.8 K/mm3 (4.5-11.0) L 01/15/20 06:35 RBC 3.76 M/mm3 (3.65-5.03) 01/15/20 06:35 Hgb 12.8 gm/dl (11.8-15.2) 01/15/20 06:35 Hct 36.6 % (35.5-45.6) 01/15/20 06:35 MCV 97 fl (84-94) H 01/15/20 06:35 MCH 34 pg (28-32) H 01/15/20 06:35 MCHC 35 % (32-34) H 01/15/20 06:35 RDW 14.9 % (13.2-15.2) 01/15/20 06:35 Plt Count 117 K/mm3 (140-440) L 01/15/20 06:35 Lymph % (Auto) 30.2 % (13.4-35.0) 01/13/20 20:44 [place] % (Auto) 9.9 % (0.0-7.3) H 01/13/20 20:44 Eos % (Auto) 0.1 % (0.0-4.3) 01/13/20 20:44 Baso % (Auto) Photo Retoucher 01/13/20 20:44 Lymph # 1.0 K/mm3 (1.2-5.4) L 01/13/20 20:44 [place] # 0.3 K/mm3 (0.0-0.8) 01/13/20 20:44 Eos # 0.0 K/mm3 (0.0-0.4) 01/13/20 20:44 Baso # 0.1 K/mm3 (0.0-0.1) 01/13/20 20:44 Add Manual Diff Complete 01/15/20 06:35 Total Counted 100 01/15/20 06:35 Seg Neutrophils % 57.6 % (40.0-70.0) 01/13/20 20:44 Seg Neuts % (Manual) 57.0 % (40.0-70.0) 01/15/20 06:35 Band Neutrophils % 1.0 % 01/15/20 06:35 Lymphocytes % (Manual) 31.0 % (13.4-35.0) 01/15/20 06:35 Reactive Lymphs % (Man) 0 % 01/15/20 06:35 Monocytes % (Manual) 11.0 % (0.0-7.3) H 01/15/20 06:35 Eosinophils % (Manual) 0 % (0.0-4.3) 01/15/20 06:35 Basophils % (Manual) 0 % (0.0-1.8) 01/15/20 06:35 Metamyelocytes % 0 % 01/15/20 06:35 Myelocytes % 0 % 01/15/20 06:35 Promyelocytes % 0 % 01/15/20 06:35 Blast Cells % 0 % 01/15/20 06:35 Nucleated RBC % Not Reportable 01/15/20 06:35 Seg Neutrophils # 1.8 K/mm3 (1.8-7.7) 01/13/20 20:44 Seg Neutrophils # Man 1.6 K/mm3 (1.8-7.7) L 01/15/20 06:35 Band Neutrophils # 0.0 K/mm3 01/15/20 06:35 Lymphocytes # (Manual) 0.9 K/mm3 (1.2-5.4) L 01/15/20 06:35 Abs React Lymphs (Man) 0.0 K/mm3 01/15/20 06:35 Monocytes # (Manual) 0.3 K/mm3 (0.0-0.8) 01/15/20 06:35 Eosinophils # (Manual) 0.0 K/mm3 (0.0-0.4) 01/15/20 06:35 Basophils # (Manual) 0.0 K/mm3 (0.0-0.1) 01/15/20 06:35 Metamyelocytes # 0.0 K/mm3 01/15/20 06:35 Myelocytes # 0.0 K/mm3 01/15/20 06:35 Promyelocytes # 0.0 K/mm3 01/15/20 06:35 Blast Cells # 0.0 K/mm3 01/15/20 06:35 WBC Morphology Not Reportable 01/15/20 06:35 Hypersegmented Neuts Not Reportable 01/15/20 06:35 Hyposegmented Neuts Not Reportable 01/15/20 06:35 Hypogranular Neuts Not Reportable 01/15/20 06:35 Smudge Cells Not Reportable 01/15/20 06:35 Toxic Granulation Not Reportable 01/15/20 06:35 Toxic Vacuolation Not Reportable 01/15/20 06:35 Dohle Bodies Not Reportable 01/15/20 06:35 Pelger-Huet Anomaly Not Reportable 01/15/20 06:35 Raul Rods Not Reportable 01/15/20 06:35 Platelet Estimate Consistent w auto 01/15/20 06:35 Clumped Platelets Not Reportable 01/15/20 06:35 Plt Clumps, EDTA Not Reportable 01/15/20 06:35 Large Platelets Not Reportable 01/15/20 06:35 Giant Platelets Not Reportable 01/15/20 06:35 Platelet Satelliting Not Reportable 01/15/20 06:35 Plt Morphology Comment Not Reportable 01/15/20 06:35 RBC Morphology Not Reportable 01/15/20 06:35 Dimorphic RBCs Not Reportable 01/15/20 06:35 Polychromasia Not Reportable 01/15/20 06:35 Hypochromasia Not Reportable 01/15/20 06:35 Poikilocytosis Not Reportable 01/15/20 06:35 Anisocytosis 1+ 01/15/20 06:35 Microcytosis Not Reportable 01/15/20 06:35 Macrocytosis Not Reportable 01/15/20 06:35 Spherocytes Rare 01/15/20 06:35 Pappenheimer Bodies Not Reportable 01/15/20 06:35 Sickle Cells Not Reportable 01/15/20 06:35 Target Cells Few 01/15/20 06:35 Tear Drop Cells Not Reportable 01/15/20 06:35 Ovalocytes Few 01/15/20 06:35 Helmet Cells Not Reportable 01/15/20 06:35 Norris-Harts Bodies Not Reportable 01/15/20 06:35 [place] Rings Not Reportable 01/15/20 06:35 Taniya Cells Not Reportable 01/15/20 06:35 Bite Cells Not Reportable 01/15/20 06:35 Crenated Cell Not Reportable 01/15/20 06:35 Elliptocytes Not Reportable 01/15/20 06:35 Acanthocytes (Spur) Not Reportable 01/15/20 06:35 Rouleaux Not Reportable 01/15/20 06:35 Hemoglobin C Crystals Not Reportable 01/15/20 06:35 Schistocytes Not Reportable 08/09/20 06:35 Malaria parasites Not Reportable 01/15/20 06:35 Tani Bodies Not Reportable 01/15/20 06:35 Hem Pathologist Commnt No 01/15/20 06:35 PT 15.3 Sec. (12.2-14.9) H 01/15/20 06:35 INR 1.18 (0.87-1.13) H 01/15/20 06:35 Sodium 125 mmol/L (137-145) L 01/15/20 06:35 Potassium 3.7 mmol/L (3.6-5.0) 01/15/20 06:35 Chloride 90.9 mmol/L (98-107) L 01/15/20 06:35 Carbon Dioxide 22 mmol/L (22-30) 01/15/20 06:35 Anion Gap 16 mmol/L 01/15/20 06:35 BUN 11 mg/dL (9-20) 01/15/20 06:35 Creatinine 0.6 mg/dL (0.8-1.3) L 01/15/20 06:35 Estimated GFR > 60 ml/min 01/15/20 06:35 BUN/Creatinine Ratio 18 % 01/15/20 06:35 Glucose 88 mg/dL (75-100) 01/15/20 06:35 Calcium 8.2 mg/dL (8.4-10.2) L 01/15/20 06:35 Total Bilirubin 2.50 mg/dL (0.1-1.2) H 01/13/20 20:44 AST 65 units/L (5-40) H 01/13/20 20:44 ALT 35 units/L (7-56) 01/13/20 20:44 Alkaline Phosphatase 98 units/L (35-129) 01/13/20 20:44 Total Creatine Kinase 134 units/L (55-170) 01/14/20 Unknown CK-MB (CK-2) 4.7 ng/mL (0.0-4.0) H 01/14/20 Unknown CK-MB (CK-2) Rel Index 3.5 (0-4) 01/14/20 Unknown Troponin T 0.014 ng/mL (0.00-0.029) 01/14/20 Unknown NT-Pro-B Natriuret Pep 3058 pg/mL (0-900) H 01/13/20 20:44 Total Protein 8.0 g/dL (6.3-8.2) 01/13/20 20:44 Albumin 3.7 g/dL (3.9-5) L 01/13/20 20:44 Albumin/Globulin Ratio 0.9 % 01/13/20 20:44 Lipase 24 units/L (13-60) 01/13/20 20:44 - Diagnostic Impressions Diagnostic Impressions: Echocardiogram 01/14/20 02:15 Transthoracic Echocardiogram Indication: Swelling BP: 151/110 HR: 93 Conclusions *RVE SEVERE LAMIN WITH SEVERE TR *MILD PULM HTN RVH *MOD. RV DYSFUNCTION *SMALL PERICARDIAL EFFUSION *MILD LVH LV DYSFUNCTION *FLATTENING OF THE SEPTUM CONSISTENT WITH *RV PRESSURE VOL. OVERLOAD Findings Left Ventricle: The left ventricular chamber size is normal. Mild concentric left ventricular hypertrophy is observed. Mild global hypokinesis of the left ventricle is observed. Global left ventricular systolic function is mildly decreased. The estimated ejection fraction is 45-50%. There is septal flattening of the interventricular septum consistent with right ventricular volume or pressure overload. Abnormal left ventricular diastolic filling is observed, consistent with impaired relaxation. Left Atrium: The left atrial chamber size is normal. Right Ventricle: The right ventricle wall thickness is mildly increased. The right ventricle is moderately dilated. The right ventricular global systolic function is moderately reduced. Right Atrium: The right atrium is moderate to severely dilated. Aortic Valve: The aortic valve structure is normal. There is no evidence of aortic regurgitation. Mitral Valve: The mitral valve leaflets appear normal. There is trace of mitral regurgitation. Tricuspid Valve: The tricuspid valve leaflets are normal. There is severe tricuspid regurgitation. The right ventricular systolic pressure is calculated at 49 mmHg. Pulmonic Valve: The pulmonic valve appears normal. There is trace pulmonic regurgitation. Pericardium: There is a small pericardial effusion. Aorta: The aorta appears normal. Venous: The inferior vena cava appears normal in size. There is no change in the dimension of the inferior vena cava with respiration consistent with markedly increased right atrial pressure. Measurements Chambers 2D Name Value Normal Range IVSd (2D) 0.8 cm (0.6 - 1.1) LVPWd (2D) 0.68 cm (0.6 - 1.1) LVIDd (2D) 3.17 cm (3.7 - 5.6) LVIDs (2D) 2.51 cm (2 - 3.8) LV FS (2D) 20.8 % - EF Teichholz (2D) 43.64 % - Ao root diameter (2D) 3.42 cm (2 - 3.7) Volumes/Mass Name Value Normal Range LA ESV SP 4CH (A/L) 16.85 ml - LA ESV SP 2CH (A/L) 23.85 ml - LA ESV BP (A/L) 25.45 ml - LA ESV BP (A/L) index 13.98 ml/m2 - LA ESV SP 4CH (MOD) 15.32 ml - LA ESV SP 2CH (MOD) 23.05 ml - LA ESV BP (MOD) 23.17 ml - LA ESV BP (MOD) index 12.73 ml/m2 - Diastolic/Systolic Function Name Value Normal Range MV E-wave Vmax 0.6 m/sec - MV deceleration time 173.28 msec - MV A-wave Vmax 0.5 m/sec - MV E:A ratio 1.19 ratio - Aortic Valve Name Value Normal Range AV Vmax 0.69 m/sec - AV VTI 9.33 cm - AV peak gradient 1.91 mmHg - AV mean gradient 1.2 mmHg - LVOT diameter 2.02 cm - LVOT Vmax 0.69 m/sec - LVOT VTI 10.24 cm - LVOT peak gradient 1.91 mmHg - LVOT mean gradient 1.1 mmHg - SV LVOT 32.84 ml - ITZEL (continuity Vmax) 3.21 cm2 - ITZEL (continuity VTI) 3.52 cm2 - Tricuspid Valve Name Value Normal Range TR Vmax 3.21 m/sec - TR peak gradient 41 mmHg - RAP 8 mmHg - RVSP 49 mmHg - IVC diameter 2.25 cm (1.2 - 2.3) Pulmonic Valve/Qp:Qs Name Value Normal Range PV Vmax 0.45 m/sec - PV peak gradient 0.82 mmHg - MO end-diastolic Vmax 1.61 m/sec - PV acceleration time 76.12 msec - Carpio/IV: Voiding Method Toilet IV Catheter Type [Left Peripheral IV Antecubital] Active Medications - Current Medications Current Medications: Generic Name Dose Route Start Last Admin Trade Name Freq PRN Reason Stop Dose Admin Acetaminophen 650 mg 01/14/20 02:08 Tylenol PO Q4H PRN Pain MILD(1-3)/Fever >100.5/CRAIG Albuterol 2.5 mg 01/15/20 09:41 Proventil IH Q4HRT PRN Shortness Of Breath Arformoterol Tartrate 15 mcg 01/16/20 09:00 Brovana Nebu IH Q12HRT CONSUELO Budesonide 0.25 mg 01/16/20 09:00 Pulmicort IH Q12HRT CONSUELO Carvedilol 3.125 mg 01/14/20 12:00 01/16/20 09:11 Coreg PO 3.125 mg BID CONSUELO Administration Furosemide 40 mg 01/14/20 06:00 01/16/20 09:10 Lasix IV 40 mg BID@0600,1800 CONSUELO Administration Heparin Sodium (Porcine) 5,000 unit 01/14/20 06:00 01/16/20 09:11 Heparin SUB-Q 5,000 unit Q8HR CONSUELO Administration Lisinopril 20 mg 01/14/20 12:00 01/16/20 09:11 Zestril PO 20 mg QDAY CONSUELO Administration Magnesium Hydroxide 30 ml 01/14/20 02:08 Milk Of Magnesia PO Q4H PRN Constipation Methylprednisolone Sodium Succinate 40 mg 01/15/20 14:00 01/16/20 09:13 Solu-Medrol IV 40 mg Q8HR CONSUELO Administration Ondansetron HCl 4 mg 01/14/20 02:08 Zofran IV Q8H PRN Nausea And Vomiting Potassium Chloride 20 meq 01/14/20 12:00 01/16/20 09:11 K-Dur PO 01/18/20 11:59 20 meq BID CONSUELO Administration Sodium Chloride 10 ml 01/14/20 10:00 01/16/20 09:13 Sodium Chloride Flush Syringe 10 Ml IV 10 ml BID CONSUELO Administration Sodium Chloride 10 ml 01/14/20 02:08 Sodium Chloride Flush Syringe 10 Ml IV PRN PRN LINE FLUSH
--- NOTE | 2020-01-16 10:02 | XRay Report ---
CHEST - 1 VIEW 0918 hours INDICATION: for lung scan COMPARISON: 01/14/2020 FINDINGS: Support devices: None Heart: Stable mild cardiomegaly. Lungs/pleura: Stable mild congestive changes in the lower lung zones. No infiltrate, pleural effusio n or pneumothorax. Additional findings: None. IMPRESSION: Unchanged exam. Signer Name: Pelon Hardin Jr, MD Signed: 01/16/2020 9:58 AM Workstation Name: [id number]
--- NOTE | 2020-01-16 10:35 | Progress Note ---
Assessment and Plan Cor-pulmonale Echo: dilated right heart chambers with moderate pulmonary hypertension, RVSP 49 mmHg. LVEF 45-50%. Severe Hyponatremia Thrombocytopenia Hx COPD/emphysema Pulmonary consultation and management of cor-pulmonale. Otherwise, conservative cardiac management. Subjective Date of service: 01/16/20 Interval history: Patient appears comfortable. Denies shortness of breath. Denies chest pain. LE edema has resolved. Objective Vital Signs Temp Pulse Resp BP Pulse Ox 01/16/20 08:18 96.6 F L 81 18 139/109 93 01/16/20 04:10 97.6 F 80 18 110/75 96 01/16/20 04:00 76 01/15/20 23:04 99.3 F 86 18 114/86 92 01/15/20 21:37 112/81 01/15/20 20:23 86 01/15/20 19:36 98.1 F 84 20 112/81 93 01/15/20 17:23 98.4 F 01/15/20 17:10 84 118/89 87 01/15/20 11:46 98.4 F 01/15/20 11:43 81 107/74 94 01/15/20 11:00 79 - Physical Examination General: No Apparent Distress HEENT: Positive: PERRL Neck: Positive: trachea midline Cardiac: Positive: Reg Rate and Rhythm Lungs: Positive: Decreased Breath Sounds Neuro: Positive: Grossly Intact Extremities: Absent: edema
--- NOTE | 2020-01-16 11:44 | Progress Note ---
Assessment and Plan 49 y/o male with global anasarca, hyponatremia, cardiomegaly on CXR with systolic heart failure and moderate pulmonary hypertension. 1. Follow up V/Q scan, not sure why my partner suggest CT of chest unless she meant CTA. V/Q better for ruling out chronic thromboembolic disease 2. Continue diuresis 3. Needs full PFT but at discharge 4. Will also screen for STEPHANIE 5. Hyponatremia work up by primary team but likely hypovolemic hyponatremia. 6. Ok with pulmicort and brovanan for now 7. Smoking cessation. Subjective Date of service: 01/16/20 Interval history: Reviewed notes from weekend. V/Q scan is pending. Echo shows systolic heart failure with moderate pulm HTN. Objective Vital Signs - 12hr 01/16/20 01/16/20 01/16/20 04:00 04:10 08:18 Temperature 97.6 F 96.6 F L Pulse Rate 76 80 81 Respiratory 18 18 Rate Blood Pressure 110/75 139/109 O2 Sat by Pulse 96 93 Oximetry Constitutional: no acute distress, alert Eyes: non-icteric ENT: oropharynx moist Neck: supple Effort: normal Ascultation: Bilateral: diminished breath sounds Cardiovascular: regular rate and rhythm Gastrointestinal: normoactive bowel sounds, soft, non-distended Integumentary: normal Extremities: no cyanosis CBC and BMP: 01/15/20 06:35 01/15/20 06:35 ABG, PT/INR, D-dimer: PT/INR, D-dimer PT 15.3 Sec. (12.2-14.9) H 01/15/20 06:35 INR 1.18 (0.87-1.13) H 01/15/20 06:35 Abnormal lab findings: Abnormal Labs 01/13/20 01/13/20 01/14/20 20:44 20:44 Unknown WBC 3.2 L MCV 98 H MCH 34 H MCHC 35 H Plt Count 132 L [place] % (Auto) 9.9 H Lymph # 1.0 L Monocytes % (Manual) Seg Neutrophils # Man Lymphocytes # (Manual) PT INR Sodium 124 L Potassium 3.5 L Chloride 87.2 L BUN 8 L Creatinine 0.6 L Glucose 74 L Calcium Total Bilirubin 2.50 H AST 65 H CK-MB (CK-2) 4.7 H NT-Pro-B Natriuret Pep 3058 H Albumin 3.7 L 01/15/20 01/15/20 01/15/20 06:35 06:35 06:35 WBC 2.8 L MCV 97 H MCH 34 H MCHC 35 H Plt Count 117 L [place] % (Auto) Lymph # Monocytes % (Manual) 11.0 H Seg Neutrophils # Man 1.6 L Lymphocytes # (Manual) 0.9 L PT 15.3 H INR 1.18 H Sodium 125 L Potassium Chloride 90.9 L BUN Creatinine 0.6 L Glucose Calcium 8.2 L Total Bilirubin AST CK-MB (CK-2) NT-Pro-B Natriuret Pep Albumin
--- NOTE | 2020-01-16 11:47 | Nuclear Medicine Report ---
NUCLEAR MEDICINE PERFUSION ONLY LUNG SCAN HISTORY: Pulmonary hypertension, evaluate for chronic PE TECHNIQUE: 5 mCi of technetium 99m MAA was administered intravenously. Multiple projections of the tyler ngs were obtained. COMPARISON: AP chest performed the same day FINDINGS: There is heterogeneous distribution of the radiotracer to both lungs but no segmental perfusion defec t extending to the pleural surface is appreciated. This finding can be seen with pulmonary hypertensi on. Prominent cardiac shadow is again noted. IMPRESSION: Low probability for acute pulmonary embolus. There is heterogeneous distribution of the radiotracer bilaterally which can be seen in the setting o f pulmonary hypertension. Signer Name: Pelon Hardin Jr, MD Signed: 01/16/2020 11:42 AM Workstation Name: [id number]
[2020-01-16] MEDS: ARFORMOTEROL 15 MCG/2 ML NEBU IH SCH ×2 (12:02→21:41)
[2020-01-16] MEDS: BUDESONIDE 0.25 MG/2 ML NEBU IH SCH ×2 (12:02→21:42)
--- NOTE | 2020-01-16 14:28 | Cat Scan Report ---
CTA CHEST WITH CONTRAST INDICATION : Pulmonary hypertension. TECHNIQUE: Axial imaging performed through the chest, with contrast bolus timing set to maximize opa cification of the pulmonary arteries. Sagittal and coronal reformatted images. 3-plane MIP reformatte d images were obtained. All CT scans at this location are performed using CT dose reduction for ALAR A by means of automated exposure control. 100 mL of intravenous contrast administered. COMPARISON: CT chest dated 11/19/2019 FINDINGS: Bolus: Contrast bolus timing is adequate. PTE: No filling defect is present to suggest PTE. Mediastinum: Mild cardiomegaly and small pericardial effusion are identified. No pathologic mediast inal adenopathy. Lungs: Moderate to severe emphysematous changes are noted throughout both lungs. No evidence for nod ule, mass, infiltrate, pleural effusion or pneumothorax. Bones: Degenerative changes in the spine with nothing acute. Upper abdomen: Small to medium ascites is noted in the upper abdomen IMPRESSION: No evidence for pulmonary embolus. Mild cardiomegaly and small pleural effusion. Advanced emphysema. Small to medium ascites in the upper abdomen. Signer Name: Pelon Hardin Jr, MD Signed: 01/16/2020 2:23 PM Workstation Name: [id number]
[2020-01-17] MEDS: methylPREDNISolone Sod Succinate 40 MG/1 ML INJ IV SCH ×3 (05:20→21:14)
[2020-01-17] MEDS: FUROSEMIDE 40 MG/4 ML INJ IV SCH ×2 (05:20→17:01)
[2020-01-17] MEDS: HEPARIN 5,000 UNIT/1 ML VIAL SUB-Q SCH ×3 (05:21→22:02)
[2020-01-17] MEDS: carvediloL 3.125 MG TAB PO SCH ×2 (09:07→21:13)
[2020-01-17] MEDS: LISINOPRIL 20 MG TAB PO SCH (09:07)
[2020-01-17] MEDS: POTASSIUM CHLORIDE ER 20 MEQ TAB PO SCH ×2 (09:07→21:13)
[2020-01-17] MEDS: ARFORMOTEROL 15 MCG/2 ML NEBU IH SCH ×2 (09:19→21:12)
[2020-01-17] MEDS: BUDESONIDE 0.25 MG/2 ML NEBU IH SCH ×2 (09:20→21:13)
--- NOTE | 2020-01-17 09:31 | Progress Note ---
Assessment and Plan Cor-pulmonale Echo: dilated right heart chambers with moderate pulmonary hypertension and tricuspid regurgitation, likely secondary to his chronic lung disease. LVEF 45-50%. Severe Hyponatremia Thrombocytopenia Hx COPD/emphysema Tobacco abuse Conservative cardiac management. Subjective Date of service: 01/17/20 Interval history: No cardiac complaints. Objective Vital Signs Temp Pulse Pulse Resp Resp BP Pulse Ox 01/17/20 08:03 98.0 F 76 18 141/107 97 01/17/20 03:33 98.0 F 74 16 123/91 99 01/16/20 23:20 97.5 F L 46 L 16 125/91 78 L 01/16/20 22:00 78 01/16/20 21:41 79 14 01/16/20 21:35 80 127/86 01/16/20 19:10 97.5 F L 80 18 127/86 93 01/16/20 16:19 96.9 F L 77 18 126/91 94 01/16/20 12:29 98.2 F 77 18 144/105 99 01/16/20 12:02 76 20 - Physical Examination General: No Apparent Distress HEENT: Positive: PERRL Neck: Positive: trachea midline Cardiac: Positive: Reg Rate and Rhythm Neuro: Positive: Grossly Intact Extremities: Absent: edema
[2020-01-17 09:37] LABS: Basophils % (Auto) 0.1 % (0.0-1.8); Hematocrit 39.2 % (35.5-45.6); Hemoglobin 13.6 gm/dl (11.8-15.2); Lymphocytes # (Auto) 0.2 K/mm3 (1.2-5.4); Mean Corpuscular HGB Conc 35 % (32-34); Mean Corpuscular Volume 99 fl (84-94); Monocytes # (Auto) 0.4 K/mm3 (0.0-0.8); Monocytes % (Auto) 7.3 % (0.0-7.3); Platelet Count 149 K/mm3 (140-440); Red Blood Count 3.98 M/mm3 (3.65-5.03); Red Cell Distribution Width 15.5 % (13.2-15.2)
[2020-01-17 09:53] LABS: Blood Urea Nitrogen 19 mg/dL (9-20); Calcium 9.2 mg/dL (8.4-10.2); Hemolysis Index 7
[2020-01-17 09:59] LABS: BUN/Creatinine Ratio 27
--- NOTE | 2020-01-17 11:15 | Progress Note ---
Assessment and Plan 49 y/o male with global anasarca, hyponatremia, cardiomegaly on CXR with systolic heart failure and moderate pulmonary hypertension. 1. V/Q low prob, CTA done with no PE but shows substantial emphysema. Needs full PFT as outpatient, likely all smoking related. 2. Continue diuresis, will need to be discharged on lasix as well. 3. Will also screen for STEPHANIE 4. Hyponatremia work up by primary team but likely hypovolemic hyponatremia. 5. Ok with pulmicort and brovana for now. WIll need [facility] bronchodilator therapy as outpatient but cost will determine what we choose as patient is unfunded 6. Smoking cessation. 7. Likely needs an ambulatory walk test prior to discharge. Subjective Date of service: 01/17/20 Interval history: No acute events. Objective Vital Signs - 12hr 01/16/20 01/17/20 01/17/20 23:20 03:33 08:03 Temperature 97.5 F L 98.0 F 98.0 F Pulse Rate 46 L 74 76 Pulse Rate [ Anterior Bilateral Throughout] Pulse Rate [ Posterior Bilateral Throughout] Respiratory 16 16 18 Rate Respiratory Rate [Anterior Bilateral Throughout] Respiratory Rate [Posterior Bilateral Throughout] Blood Pressure 125/91 123/91 141/107 O2 Sat by Pulse 78 L 99 97 Oximetry 01/17/20 09:20 Temperature Pulse Rate Pulse Rate [ 72 Anterior Bilateral Throughout] Pulse Rate [ 68 Posterior Bilateral Throughout] Respiratory Rate Respiratory 18 Rate [Anterior Bilateral Throughout] Respiratory 18 Rate [Posterior Bilateral Throughout] Blood Pressure O2 Sat by Pulse Oximetry Constitutional: no acute distress, alert Eyes: non-icteric ENT: oropharynx moist Neck: supple Effort: normal Ascultation: Bilateral: diminished breath sounds Cardiovascular: regular rate and rhythm Gastrointestinal: normoactive bowel sounds, soft, non-distended Integumentary: normal Extremities: no cyanosis CBC and BMP: 01/17/20 08:54 01/17/20 08:54 ABG, PT/INR, D-dimer: PT/INR, D-dimer PT 15.3 Sec. (12.2-14.9) H 01/15/20 06:35 INR 1.18 (0.87-1.13) H 01/15/20 06:35 Abnormal lab findings: Abnormal Labs 01/13/20 01/13/20 01/14/20 20:44 20:44 Unknown WBC 3.2 L MCV 98 H MCH 34 H MCHC 35 H RDW Plt Count 132 L Lymph % (Auto) [place] % (Auto) 9.9 H Lymph # 1.0 L Seg Neutrophils % Monocytes % (Manual) Seg Neutrophils # Man Lymphocytes # (Manual) PT INR Sodium 124 L Potassium 3.5 L Chloride 87.2 L BUN 8 L Creatinine 0.6 L Glucose 74 L Calcium Total Bilirubin 2.50 H AST 65 H CK-MB (CK-2) 4.7 H NT-Pro-B Natriuret Pep 3058 H Albumin 3.7 L 01/15/20 01/15/20 01/15/20 06:35 06:35 06:35 WBC 2.8 L MCV 97 H MCH 34 H MCHC 35 H RDW Plt Count 117 L Lymph % (Auto) [place] % (Auto) Lymph # Seg Neutrophils % Monocytes % (Manual) 11.0 H Seg Neutrophils # Man 1.6 L Lymphocytes # (Manual) 0.9 L PT 15.3 H INR 1.18 H Sodium 125 L Potassium Chloride 90.9 L BUN Creatinine 0.6 L Glucose Calcium 8.2 L Total Bilirubin AST CK-MB (CK-2) NT-Pro-B Natriuret Pep Albumin 01/17/20 01/17/20 08:54 08:54 WBC MCV 99 H MCH 34 H MCHC 35 H RDW 15.5 H Plt Count Lymph % (Auto) 4.0 L [place] % (Auto) Lymph # 0.2 L Seg Neutrophils % 88.6 H Monocytes % (Manual) Seg Neutrophils # Man Lymphocytes # (Manual) PT INR Sodium 128 L Potassium Chloride 92.1 L BUN Creatinine 0.7 L Glucose 147 H Calcium Total Bilirubin AST CK-MB (CK-2) NT-Pro-B Natriuret Pep Albumin
--- NOTE | 2020-01-17 16:13 | Progress Note ---
Assessment and Plan Assessment and plan: 49-year-old male with a medical history of alcohol abuse, tobacco abuse admitted with chief complaint of lateral leg swelling and abdominal swelling. 01/16/2020. Patient with predominantly right-sided heart failure/cor pulmonale with severe TR, right atrial enlargement and pulmonary hypertension. 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 Cardiology and pulmonary following. Pulmonary recommends CTA of chest. Right heart catheterization plans per cardiology Assessment and plan Pulmonary hypertension with cor pulmonale -need to evaluate for pulmonary etiology-VQ scan showed low probability of PE. Patient needs to have a PFT as outpatient to rule out any interstitial lung disease. Patient also needs to have sleep study STEPHANIE rule out. Echocardiogram shows right atrial dilation with ventricular dilatation and hypertrophy etiology. Patient may eventually need a right heart cath Acute on chronic systolic heart failure. Continue Lasix, Coreg and lisinopril. Cardiology following. COPD/emphysema-continue Pulmicort and Brovana for now. Pulmonology recommendations appreciated. Patient will need long-term bronchodilator therapy at discharge. Hyponatremia-likely hypervolemic hypotonic from fluid overload-continue diuresis. Trend sodium Biventricular failure. As above. Pulmonary hypertension. As above. Tobacco abuse. Patient with a [id number] history. Patient started smoking at age 7. Smoking cessation counseling. History Interval history: See assessment and plan Hospitalist Physical - Constitutional Vitals: Temp Pulse Resp BP Pulse Ox 98.0 F 77 18 141/107 97 01/17/20 08:03 01/17/20 10:00 01/17/20 09:20 01/17/20 08:03 01/17/20 08:03 General appearance: Present: no acute distress, well-nourished - EENT Eyes: Present: PERRL, EOM intact - Neck Neck: Present: supple - Respiratory Respiratory: bilateral: rales (Trace) - Cardiovascular Rhythm: regular Heart Sounds: Present: S1 & S2 - Extremities Extremities: no ischemia Extremity abnormal: edema - Abdominal General gastrointestinal: soft, non-tender, distended (Slight) - Psychiatric Psychiatric: appropriate mood/affect - Neurologic Neurologic: CNII-XII intact HEART Score - HEART Score Troponin: Troponin T 0.014 ng/mL (0.00-0.029) 01/14/20 Unknown Results - Labs CBC & Chem 7: 01/17/20 08:54 01/17/20 08:54 Labs: Laboratory Last Values WBC 6.2 K/mm3 (4.5-11.0) 01/17/20 08:54 RBC 3.98 M/mm3 (3.65-5.03) 01/17/20 08:54 Hgb 13.6 gm/dl (11.8-15.2) 01/17/20 08:54 Hct 39.2 % (35.5-45.6) 01/17/20 08:54 MCV 99 fl (84-94) H 01/17/20 08:54 MCH 34 pg (28-32) H 01/17/20 08:54 MCHC 35 % (32-34) H 01/17/20 08:54 RDW 15.5 % (13.2-15.2) H 01/17/20 08:54 Plt Count 149 K/mm3 (140-440) 01/17/20 08:54 Lymph % (Auto) 4.0 % (13.4-35.0) L 01/17/20 08:54 [place] % (Auto) 7.3 % (0.0-7.3) 01/17/20 08:54 Eos % (Auto) 0.0 % (0.0-4.3) 01/17/20 08:54 Baso % (Auto) 0.1 % (0.0-1.8) 01/17/20 08:54 Lymph # 0.2 K/mm3 (1.2-5.4) L 01/17/20 08:54 [place] # 0.4 K/mm3 (0.0-0.8) 01/17/20 08:54 Eos # 0.0 K/mm3 (0.0-0.4) 01/17/20 08:54 Baso # 0.0 K/mm3 (0.0-0.1) 01/17/20 08:54 Add Manual Diff Complete 01/15/20 06:35 Total Counted 100 01/15/20 06:35 Seg Neutrophils % 88.6 % (40.0-70.0) H 01/17/20 08:54 Seg Neuts % (Manual) 57.0 % (40.0-70.0) 01/15/20 06:35 Band Neutrophils % 1.0 % 01/15/20 06:35 Lymphocytes % (Manual) 31.0 % (13.4-35.0) 01/15/20 06:35 Reactive Lymphs % (Man) 0 % 01/15/20 06:35 Monocytes % (Manual) 11.0 % (0.0-7.3) H 01/15/20 06:35 Eosinophils % (Manual) 0 % (0.0-4.3) 01/15/20 06:35 Basophils % (Manual) 0 % (0.0-1.8) 01/15/20 06:35 Metamyelocytes % 0 % 01/15/20 06:35 Myelocytes % 0 % 01/15/20 06:35 Promyelocytes % 0 % 01/15/20 06:35 Blast Cells % 0 % 01/15/20 06:35 Nucleated RBC % Not Reportable 01/15/20 06:35 Seg Neutrophils # 5.5 K/mm3 (1.8-7.7) 01/17/20 08:54 Seg Neutrophils # Man 1.6 K/mm3 (1.8-7.7) L 01/15/20 06:35 Band Neutrophils # 0.0 K/mm3 01/15/20 06:35 Lymphocytes # (Manual) 0.9 K/mm3 (1.2-5.4) L 01/15/20 06:35 Abs React Lymphs (Man) 0.0 K/mm3 01/15/20 06:35 Monocytes # (Manual) 0.3 K/mm3 (0.0-0.8) 01/15/20 06:35 Eosinophils # (Manual) 0.0 K/mm3 (0.0-0.4) 01/15/20 06:35 Basophils # (Manual) 0.0 K/mm3 (0.0-0.1) 01/15/20 06:35 Metamyelocytes # 0.0 K/mm3 01/15/20 06:35 Myelocytes # 0.0 K/mm3 01/15/20 06:35 Promyelocytes # 0.0 K/mm3 01/15/20 06:35 Blast Cells # 0.0 K/mm3 01/15/20 06:35 WBC Morphology Not Reportable 01/15/20 06:35 Hypersegmented Neuts Not Reportable 01/15/20 06:35 Hyposegmented Neuts Not Reportable 01/15/20 06:35 Hypogranular Neuts Not Reportable 01/15/20 06:35 Smudge Cells Not Reportable 01/15/20 06:35 Toxic Granulation Not Reportable 01/15/20 06:35 Toxic Vacuolation Not Reportable 01/15/20 06:35 Dohle Bodies Not Reportable 01/15/20 06:35 Pelger-Huet Anomaly Not Reportable 01/15/20 06:35 Raul Rods Not Reportable 01/15/20 06:35 Platelet Estimate Consistent w auto 01/15/20 06:35 Clumped Platelets Not Reportable 01/15/20 06:35 Plt Clumps, EDTA Not Reportable 01/15/20 06:35 Large Platelets Not Reportable 01/15/20 06:35 Giant Platelets Not Reportable 01/15/20 06:35 Platelet Satelliting Not Reportable 01/15/20 06:35 Plt Morphology Comment Not Reportable 01/15/20 06:35 RBC Morphology Not Reportable 01/15/20 06:35 Dimorphic RBCs Not Reportable 01/15/20 06:35 Polychromasia Not Reportable 01/15/20 06:35 Hypochromasia Not Reportable 01/15/20 06:35 Poikilocytosis Not Reportable 01/15/20 06:35 Anisocytosis 1+ 01/15/20 06:35 Microcytosis Not Reportable 01/15/20 06:35 Macrocytosis Not Reportable 01/15/20 06:35 Spherocytes Rare 01/15/20 06:35 Pappenheimer Bodies Not Reportable 01/15/20 06:35 Sickle Cells Not Reportable 01/15/20 06:35 Target Cells Few 01/15/20 06:35 Tear Drop Cells Not Reportable 01/15/20 06:35 Ovalocytes Few 01/15/20 06:35 Helmet Cells Not Reportable 01/15/20 06:35 [place] Bodies Not Reportable 01/15/20 06:35 [place] Rings Not Reportable 01/15/20 06:35 [place] Cells Not Reportable 01/15/20 06:35 Bite Cells Not Reportable 01/15/20 06:35 Crenated Cell Not Reportable 01/15/20 06:35 Elliptocytes Not Reportable 01/15/20 06:35 Acanthocytes (Spur) Not Reportable 01/15/20 06:35 Rouleaux Not Reportable 01/15/20 06:35 Hemoglobin C Crystals Not Reportable 01/15/20 06:35 Schistocytes Not Reportable 01/15/20 06:35 Malaria parasites Not Reportable 01/15/20 06:35 Tani Bodies Not Reportable 01/15/20 06:35 Hem Pathologist Commnt No 01/15/20 06:35 PT 15.3 Sec. (12.2-14.9) H 01/15/20 06:35 INR 1.18 (0.87-1.13) H 01/15/20 06:35 Sodium 128 mmol/L (137-145) L 01/17/20 08:54 Potassium 4.1 mmol/L (3.6-5.0) 01/17/20 08:54 Chloride 92.1 mmol/L (98-107) L 01/17/20 08:54 Carbon Dioxide 24 mmol/L (22-30) 01/17/20 08:54 Anion Gap 16 mmol/L 01/17/20 08:54 BUN 19 mg/dL (9-20) 01/17/20 08:54 Creatinine 0.7 mg/dL (0.8-1.3) L 01/17/20 08:54 Estimated GFR > 60 ml/min 01/17/20 08:54 BUN/Creatinine Ratio 27 % 01/17/20 08:54 Glucose 147 mg/dL (75-100) H 01/17/20 08:54 Calcium 9.2 mg/dL (8.4-10.2) 01/17/20 08:54 Total Bilirubin 2.50 mg/dL (0.1-1.2) H 01/13/20 20:44 AST 65 units/L (5-40) H 01/13/20 20:44 ALT 35 units/L (7-56) 01/13/20 20:44 Alkaline Phosphatase 98 units/L (35-129) 01/13/20 20:44 Total Creatine Kinase 134 units/L (55-170) 01/14/20 Unknown CK-MB (CK-2) 4.7 ng/mL (0.0-4.0) H 01/14/20 Unknown CK-MB (CK-2) Rel Index 3.5 (0-4) 01/14/20 Unknown Troponin T 0.014 ng/mL (0.00-0.029) 01/14/20 Unknown NT-Pro-B Natriuret Pep 3058 pg/mL (0-900) H 01/13/20 20:44 Total Protein 8.0 g/dL (6.3-8.2) 01/13/20 20:44 Albumin 3.7 g/dL (3.9-5) L 01/13/20 20:44 Albumin/Globulin Ratio 0.9 % 01/13/20 20:44 Lipase 24 units/L (13-60) 01/13/20 20:44 - Diagnostic Impressions Diagnostic Impressions: Echocardiogram 01/14/20 02:15 Transthoracic Echocardiogram Indication: Swelling BP: 151/110 HR: 93 Conclusions *RVE SEVERE LAMIN WITH SEVERE TR *MILD PULM HTN RVH *MOD. RV DYSFUNCTION *SMALL PERICARDIAL EFFUSION *MILD LVH LV DYSFUNCTION *FLATTENING OF THE SEPTUM CONSISTENT WITH *RV PRESSURE VOL. OVERLOAD Findings Left Ventricle: The left ventricular chamber size is normal. Mild concentric left ventricular hypertrophy is observed. Mild global hypokinesis of the left ventricle is observed. Global left ventricular systolic function is mildly decreased. The estimated ejection fraction is 45-50%. There is septal flattening of the interventricular septum consistent with right ventricular volume or pressure overload. Abnormal left ventricular diastolic filling is observed, consistent with impaired relaxation. Left Atrium: The left atrial chamber size is normal. Right Ventricle: The right ventricle wall thickness is mildly increased. The right ventricle is moderately dilated. The right ventricular global systolic function is moderately reduced. Right Atrium: The right atrium is moderate to severely dilated. Aortic Valve: The aortic valve structure is normal. There is no evidence of aortic regurgitation. Mitral Valve: The mitral valve leaflets appear normal. There is trace of mitral regurgitation. Tricuspid Valve: The tricuspid valve leaflets are normal. There is severe tricuspid regurgitation. The right ventricular systolic pressure is calculated at 49 mmHg. Pulmonic Valve: The pulmonic valve appears normal. There is trace pulmonic regurgitation. Pericardium: There is a small pericardial effusion. Aorta: The aorta appears normal. Venous: The inferior vena cava appears normal in size. There is no change in the dimension of the inferior vena cava with respiration consistent with markedly increased right atrial pressure. Measurements Chambers 2D Name Value Normal Range IVSd (2D) 0.8 cm (0.6 - 1.1) LVPWd (2D) 0.68 cm (0.6 - 1.1) LVIDd (2D) 3.17 cm (3.7 - 5.6) LVIDs (2D) 2.51 cm (2 - 3.8) LV FS (2D) 20.8 % - EF Teichholz (2D) 43.64 % - Ao root diameter (2D) 3.42 cm (2 - 3.7) Volumes/Mass Name Value Normal Range LA ESV SP 4CH (A/L) 16.85 ml - LA ESV SP 2CH (A/L) 23.85 ml - LA ESV BP (A/L) 25.45 ml - LA ESV BP (A/L) index 13.98 ml/m2 - LA ESV SP 4CH (MOD) 15.32 ml - LA ESV SP 2CH (MOD) 23.05 ml - LA ESV BP (MOD) 23.17 ml - LA ESV BP (MOD) index 12.73 ml/m2 - Diastolic/Systolic Function Name Value Normal Range MV E-wave Vmax 0.6 m/sec - MV deceleration time 173.28 msec - MV A-wave Vmax 0.5 m/sec - MV E:A ratio 1.19 ratio - Aortic Valve Name Value Normal Range AV Vmax 0.69 m/sec - AV VTI 9.33 cm - AV peak gradient 1.91 mmHg - AV mean gradient 1.2 mmHg - LVOT diameter 2.02 cm - LVOT Vmax 0.69 m/sec - LVOT VTI 10.24 cm - LVOT peak gradient 1.91 mmHg - LVOT mean gradient 1.1 mmHg - SV LVOT 32.84 ml - ITZEL (continuity Vmax) 3.21 cm2 - ITZEL (continuity VTI) 3.52 cm2 - Tricuspid Valve Name Value Normal Range TR Vmax 3.21 m/sec - TR peak gradient 41 mmHg - RAP 8 mmHg - RVSP 49 mmHg - IVC diameter 2.25 cm (1.2 - 2.3) Pulmonic Valve/Qp:Qs Name Value Normal Range PV Vmax 0.45 m/sec - PV peak gradient 0.82 mmHg - [place] end-diastolic Vmax 1.61 m/sec - PV acceleration time 76.12 msec - Carpio/IV: Voiding Method Toilet IV Catheter Type [Left Peripheral IV Antecubital] Active Medications - Current Medications Current Medications: Generic Name Dose Route Start Last Admin Trade Name Freq PRN Reason Stop Dose Admin Acetaminophen 650 mg 01/14/20 02:08 Tylenol PO Q4H PRN Pain MILD(1-3)/Fever >100.5/CRAIG Albuterol 2.5 mg 01/15/20 09:41 Proventil IH Q4HRT PRN Shortness Of Breath Amlodipine Besylate 5 mg 01/17/20 17:00 Amlodipine PO QDAY CONSUELO Arformoterol Tartrate 15 mcg 01/16/20 09:00 01/17/20 09:19 Brovana Nebu IH 15 mcg Q12HRT CONSUELO Administration Budesonide 0.25 mg 01/16/20 09:00 01/17/20 09:20 Pulmicort IH 0.25 mg Q12HRT CONSUELO Administration Carvedilol 3.125 mg 01/14/20 12:00 01/17/20 09:07 Coreg PO 3.125 mg BID CONSUELO Administration Furosemide 40 mg 01/14/20 06:00 01/17/20 05:20 Lasix IV 40 mg BID@0600,1800 CONSUELO Administration Heparin Sodium (Porcine) 5,000 unit 01/14/20 06:00 01/17/20 13:06 Heparin SUB-Q 5,000 unit Q8HR CONSUELO Administration Lisinopril 20 mg 01/14/20 12:00 01/17/20 09:07 Zestril PO 20 mg QDAY CONSUELO Administration Magnesium Hydroxide 30 ml 01/14/20 02:08 Milk Of Magnesia PO Q4H PRN Constipation Methylprednisolone Sodium Succinate 40 mg 01/15/20 14:00 01/17/20 13:06 Solu-Medrol IV 40 mg Q8HR CONSUELO Administration Ondansetron HCl 4 mg 01/14/20 02:08 Zofran IV Q8H PRN Nausea And Vomiting Potassium Chloride 20 meq 01/14/20 12:00 01/17/20 09:07 K-Dur PO 01/18/20 11:59 20 meq BID CONSUELO Administration Sodium Chloride 10 ml 01/14/20 10:00 01/17/20 09:12 Sodium Chloride Flush Syringe 10 Ml IV Not Given BID CONSUELO Sodium Chloride 10 ml 01/14/20 02:08 Sodium Chloride Flush Syringe 10 Ml IV PRN PRN LINE FLUSH
[2020-01-17] MEDS ORDERED: amLODIPine 5 MG TAB PO SCH (17:00)
[2020-01-18 04:47] LABS: Hematocrit 38.1 % (35.5-45.6); Lymphocytes # (Auto) 0.3 K/mm3 (1.2-5.4); Lymphocytes % (Auto) 4.8 % (13.4-35.0); Mean Corpuscular HGB Conc 34 % (32-34); Mean Corpuscular Volume 99 fl (84-94); Monocytes # (Auto) 0.7 K/mm3 (0.0-0.8); Monocytes % (Auto) 10.7 % (0.0-7.3); Platelet Count 144 K/mm3 (140-440); Red Blood Count 3.84 M/mm3 (3.65-5.03); Red Cell Distribution Width 15.7 % (13.2-15.2)
[2020-01-18 05:07] LABS: Alanine Aminotransferase 41 units/L (7-56); Albumin 3.5 g/dL (3.9-5); Blood Urea Nitrogen 22 mg/dL (9-20); Calcium 9.1 mg/dL (8.4-10.2); Hemolysis Index 19
[2020-01-18 05:13] LABS: BUN/Creatinine Ratio 31
[2020-01-18] MEDS: methylPREDNISolone Sod Succinate 40 MG/1 ML INJ IV SCH (05:28)
[2020-01-18] MEDS: FUROSEMIDE 40 MG/4 ML INJ IV SCH (05:28)
[2020-01-18] MEDS: HEPARIN 5,000 UNIT/1 ML VIAL SUB-Q SCH (05:34)
[2020-01-18] MEDS: ARFORMOTEROL 15 MCG/2 ML NEBU IH SCH (07:48)
[2020-01-18] MEDS: BUDESONIDE 0.25 MG/2 ML NEBU IH SCH (07:48)
[2020-01-18] MEDS ORDERED: FOLIC ACID 1 MG TAB PO SCH (10:00)
[2020-01-18] MEDS ORDERED: amLODIPine 10 MG TAB PO SCH (10:00)
--- NOTE | 2020-01-18 10:18 | Progress Note ---
Assessment and Plan Cor-pulmonale Echo: dilated right heart chambers with moderate pulmonary hypertension and tricuspid regurgitation, likely secondary to his chronic lung disease. LVEF 45-50%. Severe Hyponatremia Hx Emphysema Tobacco abuse Conservative cardiac management. Subjective Date of service: 01/18/20 Interval history: Patient is resting in bed comfortably. No cardiac complaints. Objective Vital Signs Temp Pulse Pulse Pulse Pulse Pulse Resp 01/18/20 08:05 75 01/18/20 07:49 84 86 01/18/20 04:01 98.3 F 75 20 01/18/20 01:25 01/18/20 00:14 97.3 F L 76 18 01/17/20 21:14 71 71 01/17/20 21:13 76 01/17/20 21:00 80 80 18 01/17/20 20:00 74 01/17/20 19:53 77 01/17/20 19:52 97.6 F 76 18 01/17/20 19:51 01/17/20 12:39 98.2 F 74 18 Resp Resp BP BP Pulse Ox 01/18/20 08:05 01/18/20 07:49 16 16 01/18/20 04:01 146/101 94 01/18/20 01:25 136/95 01/18/20 00:14 95 01/17/20 21:14 18 18 01/17/20 21:13 121/89 01/17/20 21:00 95 01/17/20 20:00 01/17/20 19:53 93 01/17/20 19:52 95 01/17/20 19:51 121/89 01/17/20 12:39 145/106 90 - Physical Examination General: No Apparent Distress HEENT: Positive: PERRL Neck: Positive: trachea midline Cardiac: Positive: Reg Rate and Rhythm Neuro: Positive: Grossly Intact Extremities: Absent: edema - Labs and Meds Cardiac Enzymes 01/18/20 Range/Units 04:20 AST 56 H (5-40) units/L CBC 01/18/20 Range/Units 04:20 WBC 6.5 (4.5-11.0) K/mm3 RBC 3.84 (3.65-5.03) M/mm3 Hgb 13.0 (11.8-15.2) gm/dl Hct 38.1 (35.5-45.6) % Plt Count 144 (140-440) K/mm3 Lymph # 0.3 L (1.2-5.4) K/mm3 [place] # 0.7 (0.0-0.8) K/mm3 Eos # 0.0 (0.0-0.4) K/mm3 Baso # 0.0 (0.0-0.1) K/mm3 Comprehensive Metabolic Panel 01/18/20 Range/Units 04:20 Sodium 132 L (137-145) mmol/L Potassium 4.5 (3.6-5.0) mmol/L Chloride 95.1 L (98-107) mmol/L Carbon Dioxide 25 (22-30) mmol/L BUN 22 H (9-20) mg/dL Creatinine 0.7 L (0.8-1.3) mg/dL Glucose 153 H (75-100) mg/dL Calcium 9.1 (8.4-10.2) mg/dL AST 56 H (5-40) units/L ALT 41 (7-56) units/L Alkaline Phosphatase 109 (35-129) units/L Total Protein 7.6 (6.3-8.2) g/dL Albumin 3.5 L (3.9-5) g/dL
[2020-01-18] MEDS: carvediloL 3.125 MG TAB PO SCH (10:22)
[2020-01-18] MEDS: POTASSIUM CHLORIDE ER 20 MEQ TAB PO SCH (10:22)
[2020-01-18] MEDS: LISINOPRIL 20 MG TAB PO SCH (10:22)
[2020-01-18 10:23] VITALS: BP 139/100
--- NOTE | 2020-01-18 12:40 | Progress Note ---
Assessment and Plan 49 y/o male with global anasarca, hyponatremia, cardiomegaly on CXR with systolic heart failure and moderate pulmonary hypertension. 1. V/Q low prob, CTA done with no PE but shows substantial emphysema. Needs full PFT as outpatient, likely all smoking related. 2. Continue diuresis, will need to be discharged on lasix as well. 3. Will also screen for STEPHANIE, this can be done as an outpatient. 4. Hyponatremia work up by primary team but likely hypovolemic hyponatremia. 5. Ok with pulmicort and brovana for now. WIll need senior care bronchodilator therapy as outpatient but cost will determine what we choose as patient is unfunded 6. Smoking cessation. 7. CM to help with O2 Pulm montaño, no further recs. Will see as needed. Subjective Date of service: 01/18/20 Interval history: Per nursing note, patient qualifes for home O2. Patient is unfunded however. Room air sats at rest are good so would only need for exertion. Objective Vital Signs - 12hr 01/18/20 01/18/20 01/18/20 01:25 04:01 07:49 Temperature 98.3 F Pulse Rate 75 Pulse Rate [ 84 Anterior Bilateral Throughout] Pulse Rate [ 86 Posterior Bilateral Throughout] Respiratory 20 Rate Respiratory 16 Rate [Anterior Bilateral Throughout] Respiratory 16 Rate [Posterior Bilateral Throughout] Blood Pressure 146/101 Blood Pressure 136/95 [Right] O2 Sat by Pulse 94 Oximetry 01/18/20 01/18/20 08:05 08:49 Temperature 98.0 F Pulse Rate 75 72 Pulse Rate [ Anterior Bilateral Throughout] Pulse Rate [ Posterior Bilateral Throughout] Respiratory 18 Rate Respiratory Rate [Anterior Bilateral Throughout] Respiratory Rate [Posterior Bilateral Throughout] Blood Pressure 139/100 Blood Pressure [Right] O2 Sat by Pulse 92 Oximetry Constitutional: no acute distress, alert Eyes: non-icteric ENT: oropharynx moist Neck: supple Effort: normal Ascultation: Bilateral: diminished breath sounds Cardiovascular: regular rate and rhythm Gastrointestinal: normoactive bowel sounds, soft, non-distended Integumentary: normal Extremities: no cyanosis CBC and BMP: 01/18/20 04:20 01/18/20 04:20 ABG, PT/INR, D-dimer: PT/INR, D-dimer PT 15.3 Sec. (12.2-14.9) H 01/15/20 06:35 INR 1.18 (0.87-1.13) H 01/15/20 06:35 Abnormal lab findings: Abnormal Labs 01/13/20 01/13/20 01/14/20 20:44 20:44 Unknown WBC 3.2 L MCV 98 H MCH 34 H MCHC 35 H RDW Plt Count 132 L Lymph % (Auto) [place] % (Auto) 9.9 H Lymph # 1.0 L Seg Neutrophils % Monocytes % (Manual) Seg Neutrophils # Man Lymphocytes # (Manual) PT INR Sodium 124 L Potassium 3.5 L Chloride 87.2 L BUN 8 L Creatinine 0.6 L Glucose 74 L Calcium Total Bilirubin 2.50 H AST 65 H CK-MB (CK-2) 4.7 H NT-Pro-B Natriuret Pep 3058 H Albumin 3.7 L Folate 01/15/20 01/15/20 01/15/20 06:35 06:35 06:35 WBC 2.8 L MCV 97 H MCH 34 H MCHC 35 H RDW Plt Count 117 L Lymph % (Auto) [place] % (Auto) Lymph # Seg Neutrophils % Monocytes % (Manual) 11.0 H Seg Neutrophils # Man 1.6 L Lymphocytes # (Manual) 0.9 L PT 15.3 H INR 1.18 H Sodium 125 L Potassium Chloride 90.9 L BUN Creatinine 0.6 L Glucose Calcium 8.2 L Total Bilirubin AST CK-MB (CK-2) NT-Pro-B Natriuret Pep Albumin Folate 01/17/20 01/17/20 01/18/20 08:54 08:54 04:20 WBC MCV 99 H 99 H MCH 34 H 34 H MCHC 35 H RDW 15.5 H 15.7 H Plt Count Lymph % (Auto) 4.0 L 4.8 L [place] % (Auto) 10.7 H Lymph # 0.2 L 0.3 L Seg Neutrophils % 88.6 H 84.5 H Monocytes % (Manual) Seg Neutrophils # Man Lymphocytes # (Manual) PT INR Sodium 128 L Potassium Chloride 92.1 L BUN Creatinine 0.7 L Glucose 147 H Calcium Total Bilirubin AST CK-MB (CK-2) NT-Pro-B Natriuret Pep Albumin Folate 01/18/20 01/18/20 04:20 04:20 WBC MCV MCH MCHC RDW Plt Count Lymph % (Auto) [place] % (Auto) Lymph # Seg Neutrophils % Monocytes % (Manual) Seg Neutrophils # Man Lymphocytes # (Manual) PT INR Sodium 132 L Potassium Chloride 95.1 L BUN 22 H Creatinine 0.7 L Glucose 153 H Calcium Total Bilirubin AST 56 H CK-MB (CK-2) NT-Pro-B Natriuret Pep Albumin 3.5 L Folate 4.69 L
--- NOTE | 2020-01-18 12:52 | Discharge Summary ---
Providers - Providers Date of Admission: 01/14/20 02:05 Date of discharge: 01/18/20 Attending physician: SUSAN ADAN 01/14/20 02:08 Consult to Physician [CONS] Routine Comment: Consulting Provider: STEVAN WOLFE Physician Instructions: Reason For Exam: CHF EXACERBATION 01/15/20 07:48 Consult to Physician [CONS] Routine Comment: Consulting Provider: DOUGLAS LINARES Physician Instructions: Reason For Exam: Advanced ephysema, hypoxia, abnormal CT chest Primary care physician: QUARTZ ORIENTATOR Hospitalization Condition: Critical Hospital course: 49-year-old male with a medical history of alcohol abuse, tobacco abuse admitted with chief complaint of lateral leg swelling and abdominal swelling. 01/16/2020. Patient with predominantly right-sided heart failure/cor pulmonale with severe TR, right atrial enlargement and pulmonary hypertension. 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 Cardiology and pulmonary following. Pulmonary recommends CTA of chest. Right heart catheterization plans per cardiology. 01/16. Patient doing well today. Swelling has improved. On Lasix 40 mg twice daily 01/17. Patient seen and examined at bedside this morning. Still on Lasix 40 mg twice daily. Switching Lasix to p.o. today. Continue bronchodilators. Needs to have long-term therapy at discharge. He will need to follow-up with pulmonology [for PFT] and cardiology [for management of CHF -may need right heart cath]. He has been advised to stop tobacco abuse. His labs showed improved sodium. He ambulated today and oxygen level dropped to 87. He will need oxygen for chronic COPD. He is currently stable to be discharged today Disposition: DC-01 TO HOME OR SELFCARE - Discharge Diagnoses (1) COPD (chronic obstructive pulmonary disease) Status: Acute (2) Acute hyponatremia Status: Acute (3) CHF (congestive heart failure) Status: Acute Qualifiers: Heart failure type: unspecified Heart failure chronicity: acute Qualified Code(s): I50.9 - Heart failure, unspecified (4) Lower extremity edema Status: Acute (5) Pulmonary hypertension Status: Acute Core Measure Documentation - Palliative Care Palliative Care/ Comfort Measures: Not Applicable - Core Measures Any of the following diagnoses?: none Exam - Constitutional Vitals: Temp Pulse Resp BP Pulse Ox 98.0 F 72 18 139/100 92 01/18/20 08:49 01/18/20 08:49 01/18/20 08:49 01/18/20 08:49 01/18/20 08:49 General appearance: Present: no acute distress, well-nourished - EENT Eyes: Present: PERRL ENT: hearing intact, clear oral mucosa - Neck Neck: Present: supple, normal ROM - Respiratory Respiratory effort: normal Respiratory: bilateral: diminished, rales (Trace on the left), wheezing (minimal) - Cardiovascular Heart Sounds: Present: S1 & S2. Absent: rub, click - Extremities Extremities: pulses symmetrical, No edema Peripheral Pulses: within normal limits - Abdominal General gastrointestinal: Present: soft, non-tender, non-distended, normal bowel sounds Male genitourinary: Present: normal - Integumentary Integumentary: Present: clear, warm, dry - Musculoskeletal Musculoskeletal: gait normal, strength equal bilaterally - Psychiatric Psychiatric: appropriate mood/affect, intact judgment & insight - Neurologic Neurologic: CNII-XII intact, moves all extremities Plan Activity: no restrictions Diet: low fat, low cholesterol, low salt Durable Medical Equipment Needed Upon Discharge: Oxygen Additional Instructions: Continue medications as ordered. Follow-up with pulmonology in the office in 1 to 2 weeks. Follow-up with cardiology in the office in 1 to 2 weeks. Stop tobacco abuse Follow up with: PRIMARY CAREMD [Primary Care Provider] - 7 Days VERONICA RO MD [Staff Physician] - 7 Days DOUGLAS LINARES MD [Staff Physician] - 7 Days Prescriptions: amLODIPine 10 mg PO QDAY #60 tablet carvediloL [Coreg] 3.125 mg PO BID #120 tablet predniSONE [Deltasone] 40 mg PO QDAY #10 tablet Folic Acid [Folvite] 1 mg PO QDAY #60 tablet Furosemide [Lasix TAB] 40 mg PO QDAY #60 tablet Albuterol Mdi (or & Nicu Only) [ProAir HFA Inhaler] 2 puff IH QID PRN #8.5 gram PRN Reason: Shortness Of Breath Budesonide/Formoterol Fumarate [Symbicort 80-4.5 Mcg Inhaler] 10.2 gm IH BID #1 hfa.aer.ad lisinopriL [Zestril TAB] 20 mg PO QDAY #60 tablet
== END 2020-01-18 15:36 | disposition home or self-care (01) ==
LOC: ED 19:14 → 4A 01-14 02:05
PROVIDERS: ADMIT Internal Medicine Geriatric Medicine; ATTEND Internal Medicine
DX: J43.8 Other emphysema (principal); I50.23 Acute on chronic systolic (congestive) heart failure; I50.82 Biventricular heart failure; E87.0 Hyperosmolality and hypernatremia; R60.0 Localized edema; I27.20 Pulmonary hypertension, unspecified; D69.6 Thrombocytopenia, unspecified; M32.9 Systemic lupus erythematosus, unspecified; E87.6 Hypokalemia; F17.210 Nicotine dependence, cigarettes, uncomplicated; Z71.6 Tobacco abuse counseling; Z79.51 Long term (current) use of inhaled steroids; Z79.899 Other long term (current) drug therapy
CPT/HCPCS: 36415; 71045; 71275; 78580; 80048; 80053; 82550; 82553; 82607; 82747; 83690; 83880; 84439; 84443; 84484; 85025; 85610; 93005; 93306; 94640; 96372; 96374; 96375; 96376; 99291; 99406; A9540; G0378; J1644; J1940; J2920; Q9967; 85007

== ENCOUNTER 2020-07-12 21:01 | Inpatient (IN) | payer OTHER ==
--- NOTE | 2020-07-12 21:19 | Event Note ---
ED Screening Note Date of service: 07/12/20 Time: 21:17 ED Screening Note: Patient 50-year-old -[place] male with a history of hypertension chronic kidney disease who presents with shortness of breath abdominal and epigastric pain x2 days. Patient states arms are swollen up everywhere. Denies dysuria hematuria or hesitancy. Has been no fever or chills. Patient denies productive cough no PND. Denies history of NE, denies history of PE, denies history of HIV, symptoms are exacerbated by activity, This initial assessment/diagnostic orders/clinical plan/treatment(s) is/are subject to change based on patients health status, clinical progression and re- assessment by fellow clinical providers in the ED. Further treatment and workup at subsequent clinical providers discretion. Patient/guardian urged not to elope from the ED as their condition may be serious if not clinically assessed and managed. Initial orders include: ekg, trop, cmp, cbc, pt, ptt, cxr,
[2020-07-12 21:31] LABS: Basophils % (Auto) 0.6 % (0.0-1.8); Eosinophils % (Auto) 0.4 % (0.0-4.3); Hematocrit 43.4 % (35.5-45.6); Hemoglobin 14.7 gm/dl (11.8-15.2); Lymphocytes # (Auto) 1.2 K/mm3 (1.2-5.4); Lymphocytes % (Auto) 26.4 % (13.4-35.0); Mean Corpuscular HGB Conc 34 % (32-34); Mean Corpuscular Volume 98 fl (84-94); Monocytes # (Auto) 0.7 K/mm3 (0.0-0.8); Monocytes % (Auto) 14.4 % (0.0-7.3); Platelet Count 197 K/mm3 (140-440); Red Blood Count 4.45 M/mm3 (3.65-5.03); Red Cell Distribution Width 19.7 % (13.2-15.2)
--- NOTE | 2020-07-12 21:39 | Emergency Department Report ---
ED Shortness of Breath HPI - General Chief Complaint: Dyspnea/Respdistress Stated Complaint: chest pain Time Seen by Provider: 07/12/20 21:15 Source: patient Mode of arrival: Ambulatory Limitations: No Limitations - History of Present Illness Initial Comments: Patient is a 50-year-old male that presents emergency room with complaints of chest pain, difficulty breathing, abdominal distention and leg swelling and swelling in his abdomen. Patient states it started 2 weeks ago. Patient states he is not taking any of his medications because he ran out. Patient states that his chest pain is a 4 out of 10. Patient dates his chest pain is better with rest and worse with exertion. Patient states his shortness of breath is better with rest and worse with exertion. Patient states he feels like he is filling up with fluid. Patient denies recent travel. Patient denies recent international travel. Patient denies exposure to the novel coronavirus. Patient denies sick contacts. Patient denies fever and chills. Patient denies cough. Patient denies diarrhea. Patient denies coming in contact with anybody with symptoms of the novel coronavirus. MD Complaint: shortness of breath -: Sudden Pain Scale: 4 Quality: dull, aching Consistency: constant Improves With: rest Worsens With: exertion Known History Of: congestive heart failure Context: medication noncompliance Associated Symptoms: chest pain, lower abdominal swelling Treatments Prior to Arrival: none - Related Data Home Oxygen Therapy: No Previous Rx's Medication Instructions Recorded Last Taken Type Albuterol Mdi (or & Nicu Only) 2 puff IH QID PRN #8.5 gram 01/18/20 Unknown Rx [ProAir HFA Inhaler] Budesonide/Formoterol Fumarate 10.2 gm IH BID #1 hfa.aer.ad 01/18/20 Unknown Rx [Symbicort 80-4.5 Mcg Inhaler] Folic Acid [Folvite] 1 mg PO QDAY #60 tablet 01/18/20 Unknown Rx Furosemide [Lasix TAB] 40 mg PO QDAY #60 tablet 01/18/20 Unknown Rx amLODIPine 10 mg PO QDAY #60 tablet 01/18/20 Unknown Rx carvediloL [Coreg] 3.125 mg PO BID #120 tablet 01/18/20 Unknown Rx lisinopriL [Zestril TAB] 20 mg PO QDAY #60 tablet 01/18/20 Unknown Rx predniSONE [Deltasone] 40 mg PO QDAY #10 tablet 01/18/20 Unknown Rx Allergies Allergy/AdvReac Type Severity Reaction Status Date / Time No Known Allergies Allergy Verified 11/16/19 18:32 ED Review of Systems ROS: Stated complaint: CARLEE Other details as noted in HPI Constitutional: denies: chills, fever Eyes: denies: eye pain, eye discharge, vision change ENT: denies: ear pain, throat pain Respiratory: shortness of breath. denies: cough, wheezing Cardiovascular: chest pain, dyspnea on exertion, edema. denies: palpitations Endocrine: no symptoms reported Gastrointestinal: denies: abdominal pain, nausea, diarrhea Genitourinary: denies: urgency, dysuria Musculoskeletal: denies: back pain, joint swelling, arthralgia Skin: denies: rash, lesions Neurological: denies: headache, weakness, paresthesias Psychiatric: denies: anxiety, depression Hematological/Lymphatic: denies: easy bleeding, easy bruising ED Past Medical Hx - Past Medical History Previous Medical History?: Yes Hx Hypertension: Yes Hx Congestive Heart Failure: Yes Hx COPD: Yes Additional medical history: Herpes 1 - Surgical History Past Surgical History?: Yes Additional Surgical History: left leg - Family History Family history: no significant - Social History Smoking Status: Current Every Day Smoker Substance Use Type: Marijuana - Medications Home Medications: Home Medications Medication Instructions Recorded Confirmed Last Taken Type Albuterol Mdi (or & Nicu Only) 2 puff IH QID PRN #8.5 gram 01/18/20 Unknown Rx [ProAir HFA Inhaler] Budesonide/Formoterol Fumarate 10.2 gm IH BID #1 hfa.aer.ad 01/18/20 Unknown Rx [Symbicort 80-4.5 Mcg Inhaler] Folic Acid [Folvite] 1 mg PO QDAY #60 tablet 01/18/20 Unknown Rx Furosemide [Lasix TAB] 40 mg PO QDAY #60 tablet 01/18/20 Unknown Rx amLODIPine 10 mg PO QDAY #60 tablet 01/18/20 Unknown Rx carvediloL [Coreg] 3.125 mg PO BID #120 tablet 01/18/20 Unknown Rx lisinopriL [Zestril TAB] 20 mg PO QDAY #60 tablet 01/18/20 Unknown Rx predniSONE [Deltasone] 40 mg PO QDAY #10 tablet 01/18/20 Unknown Rx ED Physical Exam - General Limitations: No Limitations General appearance: alert, in no apparent distress - Head Head exam: Present: atraumatic, normocephalic - Eye Eye exam: Present: normal appearance - ENT ENT exam: Present: mucous membranes moist - Neck Neck exam: Present: normal inspection - Respiratory Respiratory exam: Present: respiratory distress, rales, chest wall tenderness, decreased breath sounds - Cardiovascular Cardiovascular Exam: Present: regular rate, normal rhythm. Absent: systolic murmur, diastolic murmur, rubs, gallop - GI/Abdominal GI/Abdominal exam: Present: soft, distended, tenderness, normal bowel sounds - Rectal Rectal exam: Present: deferred - Extremities Exam Extremities exam: Present: full ROM, pedal edema. Absent: tenderness, calf tenderness - Back Exam Back exam: Present: normal inspection - Neurological Exam Neurological exam: Present: alert, oriented X3 - Psychiatric Psychiatric exam: Present: normal affect, normal mood - Skin Skin exam: Present: warm, dry, intact, normal color. Absent: rash ED Course Vital Signs 07/12/20 07/12/20 07/13/20 21:10 21:45 00:18 Temperature 97.0 F L Pulse Rate 201 H 117 H 97 H Respiratory 20 29 H 22 Rate Blood Pressure 152/109 Blood Pressure 154/122 158/112 [Left] O2 Sat by Pulse 75 L 4 L 93 Oximetry 07/13/20 00:33 Temperature Pulse Rate 97 H Respiratory Rate Blood Pressure Blood Pressure [Left] O2 Sat by Pulse Oximetry - Reevaluation(s) Reevaluation #1: During his evaluation, the patient was found to be hypoxic. Patient placed on oxygen and his oxygen improved. 07/12/20 21:45 Reevaluation #2: Patient states since he received the Lasix he has been urinating a lot. Patient states he is feeling a little bit better. I discussed all results with patient. I discussed plan of care with patient. Patient agrees with plan of care and admission. Patient to be admitted to the hospitalist service. 07/12/20 23:45 - Consultations Consultation #1: Hospitalist consulted for admission. Hospitalist to admit patient. 07/12/20 23:45 ED Medical Decision Making - Lab Data Result diagrams: 07/12/20 21:20 07/12/20 21:20 - EKG Data -: EKG Interpreted by Me EKG shows normal: sinus rhythm, axis, intervals, QRS complexes, ST-T waves Rate: tachycardia - Radiology Data Radiology results: report reviewed interpreted by me: Chest x-ray: No pneumonia, no pneumothorax, no foreign body, no osseous findings, pulmonary edema noted. CT ANGIOGRAPHY OF THE CHEST WITH INTRAVENOUS CONTRAST AND MULTIPLANAR MIP RECONSTRUCTIONS INDICATION / CLINICAL INFORMATION: Chest pain, shortness of breath and hypoxia. TECHNIQUE: Axial CT images were obtained after injection of 100 cc Omnipaque 350 IV c ontrast using CTA protocol. 3 plane MIP / 3D reconstructions were produced. All CT scans at this location are performed using CT dose reduction for ALARA by means of automated exposure control. COMPARISON: 01/16/20. FINDINGS: There is good opacification of the pulmonary arterial system bilaterally without intraluminal filling defect to suggest acute PTE. The thoracic aorta is normal in caliber without dissection. Mild coronary artery calcification is present. There are confluent changes of centrilobular emphysema. There is also substantial paraseptal emphysema, more prominent in the upper lung zones. Interstitial lung markings are diffusely increased. There is mild subsegmental atelectasis in the right lower lung. There is a small right pleural effusion. A mild to moderate pericardial effusion is present. There is moderate upper abdominal ascites. There is significant reflux of contrast into the IVC and hepatic veins. There is a tiny gallstone. No acute osseous abnormality is present. IMPRESSION: 1. No evidence of acute PTE. 2. Mild congestive heart failure superimposed on emphysema. 3. Small to moderate pericardial effusion and small pleural effusion. Upper abdominal ascites. - Medical Decision Making Patient is a 50-year-old male that presents emergency room with complaints of chest pain shortness of breath. Patient chest pain resolved 2 weeks. Patient has rested well for 2 weeks. Patient history of CHF and is noncompliant with his medications for many months. Patient had labs done which were essentially remarkable for elevated troponin and elevated BNP. Patient was also found to be hypoxic and tachycardic on initial evaluation. Patient placed on oxygen after initial evaluation. Patient had a CTA to rule out PE. Patient CTA was negative for PE but showed CHF changes. Patient placed on heparin for the elevated troponin and find existent with an NSTEMI. Patient also given IV Lasix. Patient admitted to the hospital service for further evaluation treatment. - Differential Diagnosis CHF exacerbation, volume overload, ascites, edema, ACS, chest pain, SOB Critical Care Time: Yes Critical care time in (mins) excluding proc time.: 35 Critical care attestation.: If time is entered above; I have spent that time in minutes in the direct care of this critically ill patient, excluding procedure time. Critical Care Time: 35 minutes ED Disposition Clinical Impression: SOB (shortness of breath), Elevated troponin I level, Noncompliance, Lower extremity edema, Anasarca, Pulmonary edema cardiac cause, Hypoxia, NSTEMI (non- ST elevated myocardial infarction) Chest pain Qualifiers: Chest pain type: unspecified Qualified Code(s): R07.9 - Chest pain, unspecified Acute exacerbation of CHF (congestive heart failure) Qualifiers: Heart failure type: unspecified Qualified Code(s): I50.9 - Heart failure, unspecified Respiratory failure Qualifiers: Chronicity: acute Respiratory failure complication: hypoxia Qualified Code(s): J96.01 - Acute respiratory failure with hypoxia Disposition: OP ADMIT IP TO THIS HOSP Is pt being admited?: Yes Does the pt Need Aspirin: No Condition: Critical Time of Disposition: 23:45 Heart Score - HEART Score History: Moderately suspicious EKG: Non-specific Age: 45-65 Risk factors: 1-2 risk factors Troponin: 1-3x normal limit HEART Score: 5 ANAND score - Anand Score Age > 65: (0) No Aspirin use within the Past 7 Days: (0) No 3 or more CAD Risk Factors: (0) No 2 or more Angina events in past 24 hrs: (1) Yes Known CAD with more than 50% Stenosis: (0) No Elevated Cardiac Markers: (1) Yes ST Deviation Greater than 0.5mm: (0) No ANAND Score: 2
[2020-07-12 21:42] LABS: INR 1.36 (0.87-1.13)
[2020-07-12 21:43] LABS: Partial Thromboplastin Time 30.7 Sec. (24.2-36.6)
[2020-07-12 21:52] LABS: Alanine Aminotransferase 18 units/L (7-56); Albumin 3.4 g/dL (3.9-5); Blood Urea Nitrogen 12 mg/dL (9-20); Calcium 8.7 mg/dL (8.4-10.2); Hemolysis Index 8
[2020-07-12 21:55] LABS: BUN/Creatinine Ratio 24
[2020-07-12 22:03] LABS: Chol/HDL Ratio 2.51 %; HDL Cholesterol 35 mg/dL (40-59); LDL Cholesterol,Direct 46 mg/dL (50-130)
[2020-07-12] MEDS ORDERED: FUROSEMIDE 40 MG/4 ML INJ IV ONE (22:50)
[2020-07-12] MEDS ORDERED: HEPARIN 10,000 UNITS/10 ML VIAL IV ONE (22:51)
[2020-07-12 23:15] LABS: Bilirubin,Urine SM (Negative); Blood,Urine NEG (Negative); Color,Urine Amber (Yellow); Mucus,Urine 3+ /HPF
--- NOTE | 2020-07-12 23:25 | Cat Scan Report ---
CT ANGIOGRAPHY OF THE CHEST WITH INTRAVENOUS CONTRAST AND MULTIPLANAR MIP RECONSTRUCTIONS INDICATION / CLINICAL INFORMATION: Chest pain, shortness of breath and hypoxia. TECHNIQUE: Axial CT images were obtained after injection of 100 cc Omnipaque 350 IV contrast using CTA protocol. 3 plane MIP / 3D reconstructions were produced. All CT scans at this location are performed using CT dose reduction for ALARA by means of automated exposure control. COMPARISON: 01/16/20. FINDINGS: There is good opacification of the pulmonary arterial system bilaterally without intraluminal filling defect to suggest acute PTE. The thoracic aorta is normal in caliber without dissection. Mild saxena ry artery calcification is present. There are confluent changes of centrilobular emphysema. There is also substantial paraseptal emphysem a, more prominent in the upper lung zones. Interstitial lung markings are diffusely increased. There is mild subsegmental atelectasis in the right lower lung. There is a small right pleural effusion. A mild to moderate pericardial effusion is present. There is moderate upper abdominal ascites. There is significant reflux of contrast into the IVC and hepatic veins. There is a tiny gallstone. No acute osseous abnormality is present. IMPRESSION: 1. No evidence of acute PTE. 2. Mild congestive heart failure superimposed on emphysema. 3. Small to moderate pericardial effusion and small pleural effusion. Upper abdominal ascites. Signer Name: Rehan Christina MD Signed: 07/12/2020 11:20 PM Workstation Name: [id number]
[2020-07-12 23:30] LABS: Protein,Urine >500 mg/dL (Negative)
[2020-07-12] MEDS: HEPARIN/ 0.45% NACL DRIP 25,000 UNIT/500 ML BAG IV SCH (23:30)
[2020-07-12 23:33] LABS: Ictotest,Urine Positive (Negative)
[2020-07-13] MEDS ORDERED: ONDANSETRON 4 MG/2 ML INJ IV PRN (00:18)
[2020-07-13] MEDS ORDERED: MAGNESIUM HYDROXIDE (MOM) ORAL LIQD UDC PO PRN (00:18)
[2020-07-13] MEDS ORDERED: ACETAMINOPHEN 325 MG TAB PO PRN ×2 (00:18)
[2020-07-13] MEDS ORDERED: DEXTROSE 50% IN WATER (25GM) 50 ML SYRINGE IV PRN (00:18)
[2020-07-13] MEDS ORDERED: MORPHINE 4 MG/1 ML INJ IV PRN (00:18)
[2020-07-13] MEDS ORDERED: ALBUTEROL 2.5 MG/3 ML NEBU IH PRN ×2 (00:18→08:33)
[2020-07-13] MEDS ORDERED: MORPHINE 2 MG/1 ML INJ IV PRN (00:18)
[2020-07-13] MEDS ORDERED: NITROGLYCERIN 0.4 MG TAB SUBL SL PRN ×2 (00:18)
--- NOTE | 2020-07-13 00:35 | History and Physical Report ---
History of Present Illness Date of examination: 07/12/20 Date of admission: 07/12/20 23:49 Chief complaint: Chest Pain Shortness of Breath History of present illness: 50-year-old male with known history of CHF, hypertension, COPD presenting to the emergency room today complaining of chest pain and shortness of breath. He has also been having some lower extremity swelling and abdominal swelling over the past 2 weeks. Patient indicates that he has been out of his medication for some time. Chest pain is about 4/10 in severity. Pain is substernal and worse on e xertion. He has had associated shortness of breath. He denies any fever or chills, no nausea vomiting, no headache or dizziness, no diaphoresis. Patient denies any recent travel and no sick contacts. Denies any contact with anyone with COVID-19. Upon arrival in the emergency room patient was tachycardic and hypoxic. Work-up in the emergency room today reveals elevated BNP, CT angiogram of the chest reveals:1. No evidence of acute PTE. 2. Mild congestive heart failure superimposed on emphysema. 3. Small to moderate pericardial effusion and small pleural effusion. Upper abdominal ascites. Labs reveals elevated troponin. Patient is admitted with CHF exacerbation, non-ST elevation AK. Past History Past Medical History: COPD, heart failure, hypertension, other (Herpes 1) Past Surgical History: Other (Left leg surgery in the past) Social history: smoking (Current daily smoker), other (Uses marijuana) Family history: no significant family history Medications and Allergies Allergies Allergy/AdvReac Type Severity Reaction Status Date / Time No Known Allergies Allergy Verified 11/16/19 18:32 Home Medications Medication Instructions Recorded Confirmed Last Taken Type Albuterol Mdi (or & Nicu Only) 2 puff IH QID PRN #8.5 gram 01/18/20 Unknown Rx [ProAir HFA Inhaler] Budesonide/Formoterol Fumarate 10.2 gm IH BID #1 hfa.aer.ad 01/18/20 Unknown Rx [Symbicort 80-4.5 Mcg Inhaler] Folic Acid [Folvite] 1 mg PO QDAY #60 tablet 01/18/20 Unknown Rx Furosemide [Lasix TAB] 40 mg PO QDAY #60 tablet 01/18/20 Unknown Rx amLODIPine 10 mg PO QDAY #60 tablet 01/18/20 Unknown Rx carvediloL [Coreg] 3.125 mg PO BID #120 tablet 01/18/20 Unknown Rx lisinopriL [Zestril TAB] 20 mg PO QDAY #60 tablet 01/18/20 Unknown Rx predniSONE [Deltasone] 40 mg PO QDAY #10 tablet 01/18/20 Unknown Rx Active Meds: Active Medications Acetaminophen (Acetaminophen 325 Mg Tab) 650 mg PO Q4H PRN PRN Reason: Pain MILD(1-3)/Fever >100.5/CRAIG Acetaminophen (Acetaminophen 325 Mg Tab) 650 mg PO Q6H PRN PRN Reason: Pain, Mild (1-3) Albuterol (Albuterol 2.5 Mg/3 Ml Nebu) 2.5 mg IH Q4HRT PRN PRN Reason: Shortness Of Breath Aspirin (Aspirin Ec 325 Mg Tab) 325 mg PO QDAY CONSUELO Dextrose (Dextrose 50% In Water (25gm) 50 Ml Syringe) 50 ml IV Q30MIN PRN; Protocol PRN Reason: Hypoglycemia Furosemide (Furosemide 40 Mg/4 Ml Inj) 40 mg IV BID@0600,1800 CONSUELO Heparin Sodium/Sodium Chloride (Heparin/ 0.45% Nacl-25,000 Unit/500 Ml) 25,000 unit in 500 mls @ 20 mls/hr IV TITRATE CONSUELO; Protocol Last Admin: 07/12/20 23:30 Dose: 1,000 units/hr, 20 mls/hr Documented by: Insulin Human Lispro (Insulin Lispro 100 Unit/Ml) 0 unit SUB-Q ACHS CONSUELO; Protoc ol Magnesium Hydroxide (Magnesium Hydroxide (Mom) Oral Liqd Udc) 30 ml PO Q4H PRN PRN Reason: Constipation Morphine Sulfate (Morphine 4 Mg/1 Ml Inj) 2 mg IV Q5MIN PRN PRN Reason: Chest Pain Morphine Sulfate (Morphine 2 Mg/1 Ml Inj) 2 mg IV Q5MIN PRN PRN Reason: Chest Pain unrelieved by NTG Nitroglycerin (Nitroglycerin 0.4 Mg Tab Subl) 0.4 mg SL Q5M PRN PRN Reason: Chest Pain Nitroglycerin (Nitroglycerin 0.4 Mg Tab Subl) 0.4 mg SL .Q5MIN PRN PRN Reason: Chest Pain Ondansetron HCl (Ondansetron 4 Mg/2 Ml Inj) 4 mg IV Q8H PRN PRN Reason: Nausea And Vomiting Sodium Chloride (Sodium Chloride 0.9% 10 Ml Flush Syringe) 10 ml IV BID CONSUELO Sodium Chloride (Sodium Chloride 0.9% 10 Ml Flush Syringe) 10 ml IV PRN PRN PRN Reason: LINE FLUSH Sodium Chloride (Sodium Chloride 0.9% 10 Ml Flush Syringe) 10 ml IV PRN PRN PRN Reason: LINE FLUSH Review of Systems Constitutional: no fever, no chills Ears, nose, mouth and throat: no nasal congestion, no sore throat Cardiovascular: chest pain, no palpitations Respiratory: shortness of breath, no cough Gastrointestinal: no abdominal pain, no nausea, no vomiting, no diarrhea Genitourinary Male: no dysuria, no hematuria, no flank pain, no nocturia Musculoskeletal: no neck pain, no low back pain Integumentary: no rash, no pruritis Neurological: no headaches, no confusion Psychiatric: no anxiety, no depression Exam - Constitutional Vitals: Temp Pulse Resp BP Pulse Ox 97.0 F L 97 H 22 158/112 93 07/12/20 21:10 07/13/20 00:18 07/13/20 00:18 07/13/20 00:18 07/13/20 00:18 General appearance: Present: no acute distress, well-nourished - EENT Eyes: Present: PERRL, EOM intact. Absent: scleral icterus ENT: hearing intact, clear oral mucosa, dentition normal - Neck Neck: Present: supple, normal ROM - Respiratory Respiratory effort: normal Respiratory: bilateral: rales - Cardiovascular Rhythm: regular Heart Sounds: Present: S1 & S2. Absent: gallop, systolic murmur, diastolic murmur, rub, click - Extremities Extremities: no ischemia, pulses intact, pulses symmetrical, No edema, normal temperature, normal color, Full ROM Extremity abnormal: clubbing (Bilateral finger clubbing) Peripheral Pulses: within normal limits - Abdominal General gastrointestinal: Present: soft, non-tender, non-distended, normal bowel sounds. Absent: mass - Integumentary Integumentary: Present: clear, warm, dry. Absent: rash - Musculoskeletal Musculoskeletal: strength equal bilaterally - Psychiatric Psychiatric: appropriate mood/affect, intact judgment & insight, memory intact, cooperative - Neurologic Neurologic: CNII-XII intact, no focal deficits, moves all extremities HEART Score - HEART Score History: Moderately suspicious EKG: Non-specific Age: 45-65 Risk factors: 1-2 risk factors Troponin: Troponin T 0.042 ng/mL (0.00-0.029) H 07/12/20 21:20 Troponin: 1-3x normal limit HEART Score: 5 Results - Labs CBC & Chem 7: 07/12/20 21:20 07/12/20 21:20 Labs: Abnormal lab results 07/12/20 07/12/20 07/12/20 Range/Units 21:20 21:20 21:20 MCV 98 H (84-94) fl MCH 33 H (28-32) pg RDW 19.7 H (13.2-15.2) % [place] % (Auto) 14.4 H (0.0-7.3) % PT 16.8 H (12.2-14.9) Sec. INR 1.36 H (0.87-1.13) Sodium 133 L (137-145) mmol/L Chloride 97.6 L (98-107) mmol/L Creatinine 0.5 L (0.8-1.3) mg/dL AST 45 H (5-40) units/L Alkaline Phosphatase 133 H (35-129) units/L Troponin T 0.042 H (0.00-0.029) ng/mL NT-Pro-B Natriuret Pep (0-900) pg/mL Albumin 3.4 L (3.9-5) g/dL LDL Cholesterol Direct 46 L (50-130) mg/dL HDL Cholesterol 35 L (40-59) mg/dL Ur Specific [place] (1.003-1.030) Urine WBC (Auto) (0.0-6.0) /HPF 07/12/20 07/12/20 Range/Units 21:20 22:50 MCV (84-94) fl MCH (28-32) pg RDW (13.2-15.2) % [place] % (Auto) (0.0-7.3) % PT (12.2-14.9) Sec. INR (0.87-1.13) Sodium (137-145) mmol/L Chloride (98-107) mmol/L Creatinine (0.8-1.3) mg/dL AST (5-40) units/L Alkaline Phosphatase (35-129) units/L Troponin T (0.00-0.029) ng/mL NT-Pro-B Natriuret Pep 7185 H (0-900) pg/mL Albumin (3.9-5) g/dL LDL Cholesterol Direct (50-130) mg/dL HDL Cholesterol (40-59) mg/dL Ur Specific [place] 1.033 H (1.003-1.030) Urine WBC (Auto) 14.0 H (0.0-6.0) /HPF Assessment and Plan - Patient Problems (1) Acute exacerbation of CHF (congestive heart failure) Current Visit: Yes Status: Acute Qualifiers: Heart failure type: unspecified Qualified Code(s): I50.9 - Heart failure, unspecified Plan to address problem: Patient admitted and placed on telemetry. He has been started on diuretics. Will monitor inputs and outputs and also monitor daily weight. Echo done in 01/26/2020 reveals ejection fraction of 45 to 50%. We will await evaluation by cardiology. (2) NSTEMI (non-ST elevated myocardial infarction) Current Visit: Yes Status: Acute Plan to address problem: We will check serial cardiac enzymes. Patient has been started on aspirin, sublingual nitroglycerin and IV morphine as needed for chest pain. He has also been placed on heparin drip. We will await further evaluation by cardiology. (3) COPD (chronic obstructive pulmonary disease) Current Visit: No Status: Acute Plan to address problem: He will be placed on nebulizing treatments as needed. (4) DVT prophylaxis Current Visit: No Status: Acute Plan to address problem: Patient currently on anticoagulation with heparin. (5) Full code status Current Visit: No Status: Acute Plan to address problem: Patient is a full code.
[2020-07-13] MEDS: FUROSEMIDE 40 MG/4 ML INJ IV SCH ×2 (06:41→17:52)
[2020-07-13] MEDS: HEPARIN/ 0.45% NACL DRIP 25,000 UNIT/500 ML BAG IV SCH ×2 (07:13→19:32)
[2020-07-13] MEDS ORDERED: ALBUTEROL 8.5 GM MDI INHALATION IH PRN (08:08)
[2020-07-13] MEDS ORDERED: REGADENOSON 0.4 MG/5 ML INJ IV ONE (09:12)
[2020-07-13] MEDS: INSULIN LISPRO 100 UNIT/ML SUB-Q SCH ×3 (11:29→17:50)
[2020-07-13] MEDS: amLODIPine 10 MG TAB PO SCH (11:42)
[2020-07-13] MEDS: carvediloL 3.125 MG TAB PO SCH ×2 (11:42→17:51)
[2020-07-13] MEDS: LISINOPRIL 20 MG TAB PO SCH (11:43)
[2020-07-13] MEDS: FOLIC ACID 1 MG TAB PO SCH (11:43)
--- NOTE | 2020-07-13 11:54 | XRay Report ---
CHEST 1 VIEW INDICATION: cp. sob. COMPARISON: 01/16/2020 FINDINGS: Support devices: None. Heart: Stable cardiomegaly. Lungs/Pleura: The interstitium is prominent bilaterally suggesting interstitial edema. No consolidati on, large pleural effusion or pneumothorax. Additional findings: None. IMPRESSION: Cardiomegaly and pulmonary interstitial edema. Signer Name: Pelon Hardin Jr, MD Signed: 07/13/2020 11:49 AM Workstation Name: [id number]
[2020-07-13] MEDS: ARFORMOTEROL 15 MCG/2 ML NEBU IH SCH ×2 (12:03→19:23)
[2020-07-13] MEDS: BUDESONIDE 0.5 MG/2 ML NEBU IH SCH ×2 (12:04→19:23)
[2020-07-13] MEDS ORDERED: hydrALAZINE 20 MG/1 ML INJ IV PRN (12:21)
--- NOTE | 2020-07-13 14:27 | Consultation ---
History of Present Illness Consult date: 07/13/20 Consult reason: chest pain History of present illness: Patient is a 50-year-old man with obesity, obstructive sleep apnea and chronic lung disease. Previous cardiac assessment has reported echocardiographic findings of cor pulmonale, with enlarged right heart chambers, tricuspid regurgitation and pulmonary hypertension. Conversely, left ventricular chamber size and systolic function is well-preserved with ejection fraction reported at 45 to 50%. The patient has chronic tobacco abuse AGAINST MEDICAL ADVICE. He presents to the hospital at this time with atypical, nonexertional chest pain. ECG is normal sinus rhythm with no acute ST or T wave changes. Serial troponin levels were negative. Today, he underwent a Lexiscan thallium stress test, results are pending. Past History Past Medical History: COPD, hypertension, other (Herpes 1) Past Surgical History: Other (Left leg surgery in the past) Social history: smoking (Current daily smoker), other (Uses marijuana) Family history: no significant family history Medications and Allergies Allergies Allergy/AdvReac Type Severity Reaction Status Date / Time No Known Allergies Allergy Verified 11/16/19 18:32 Home Medications Medication Instructions Recorded Confirmed Last Taken Type Albuterol Mdi (or & Nicu Only) 2 puff IH QID PRN #8.5 gram 01/18/20 Unknown Rx [ProAir HFA Inhaler] Budesonide/Formoterol Fumarate 10.2 gm IH BID #1 hfa.aer.ad 01/18/20 Unknown Rx [Symbicort 80-4.5 Mcg Inhaler] Folic Acid [Folvite] 1 mg PO QDAY #60 tablet 01/18/20 Unknown Rx Furosemide [Lasix TAB] 40 mg PO QDAY #60 tablet 01/18/20 Unknown Rx amLODIPine 10 mg PO QDAY #60 tablet 01/18/20 Unknown Rx carvediloL [Coreg] 3.125 mg PO BID #120 tablet 01/18/20 Unknown Rx lisinopriL [Zestril TAB] 20 mg PO QDAY #60 tablet 01/18/20 Unknown Rx predniSONE [Deltasone] 40 mg PO QDAY #10 tablet 01/18/20 Unknown Rx Active Meds: Active Medications Acetaminophen (Acetaminophen 325 Mg Tab) 650 mg PO Q4H PRN PRN Reason: Pain MILD(1-3)/Fever >100.5/CRAIG Albuterol (Albuterol 2.5 Mg/3 Ml Nebu) 2.5 mg IH Q4HRT PRN PRN Reason: Shortness Of Breath Amlodipine Besylate (Amlodipine 10 Mg Tab) 10 mg PO QDAY [facility] Last Admin: 07/13/20 11:42 Dose: 10 mg Documented by: Arformoterol Tartrate (Arformoterol 15 Mcg/2 Ml Nebu) 15 mcg IH Q12HRT [facility] Last Admin: 07/13/20 12:03 Dose: Not Given Documented by: Aspirin (Aspirin Ec 325 Mg Tab) 325 mg PO QDAY [facility] Budesonide (Budesonide 0.5 Mg/2 Ml Nebu) 0.5 mg IH Q12HRT [facility] Last Admin: 07/13/20 12:04 Dose: Not Given Documented by: Carvedilol (Carvedilol 3.125 Mg Tab) 3.125 mg PO BID@0800,1700 [facility] Last Admin: 07/13/20 11:42 Dose: 3.125 mg Documented by: Dextrose (Dextrose 50% In Water (25gm) 50 Ml Syringe) 0 ml IV Q30MIN PRN; Protocol PRN Reason: Hypoglycemia Folic Acid (Folic Acid 1 Mg Tab) 1 mg PO QDAY [facility] Last Admin: 07/13/20 11:43 Dose: 1 mg Documented by: Furosemide (Furosemide 40 Mg/4 Ml Inj) 40 mg IV BID@0600,1800 [facility] Last Admin: 07/13/20 06:41 Dose: 40 mg Documented by: Hydralazine HCl (Hydralazine 20 Mg/1 Ml Inj) 10 mg IV Q4HR PRN PRN Reason: HTN SYS>160 OR MANDIE>105 Heparin Sodium/Sodium Chloride (Heparin/ 0.45% Nacl-25,000 Unit/500 Ml) 25,000 unit in 500 mls @ 20 mls/hr IV TITRATE [facility]; Protocol Last Admin: 07/13/20 07:13 Dose: 1,000 units/hr, 20 mls/hr Documented by: Insulin Human Lispro (Insulin Lispro 100 Unit/Ml) 0 unit SUB-Q ACHS [facility]; Protocol Last Admin: 07/13/20 14:08 Dose: Not Given Documented by: Lisinopril (Lisinopril 20 Mg Tab) 20 mg PO QDAY [facility] Last Admin: 07/13/20 11:43 Dose: 20 mg Documented by: Magnesium Hydroxide (Magnesium Hydroxide (Mom) Oral Liqd Udc) 30 ml PO Q4H PRN PRN Reason: Constipation Morphine Sulfate (Morphine 2 Mg/1 Ml Inj) 2 mg IV Q5MIN PRN PRN Reason: Chest Pain unrelieved by NTG Nitroglycerin (Nitroglycerin 0.4 Mg Tab Subl) 0.4 mg SL Q5M PRN PRN Reason: Chest Pain Ondansetron HCl (Ondansetron 4 Mg/2 Ml Inj) 4 mg IV Q8H PRN PRN Reason: Nausea And Vomiting Sodium Chloride (Sodium Chloride 0.9% 10 Ml Flush Syringe) 10 ml IV BID [facility]SU[facility] Last Admin: 07/13/20 11:44 Dose: Not Given Documented by: Sodium Chloride (Sodium Chloride 0.9% 10 Ml Flush Syringe) 10 ml IV PRN PRN PRN Reason: LINE FLUSH Last Admin: 07/13/20 06:41 Dose: 10 ml Documented by: Review of Systems Cardiovascular: chest pain, shortness of breath, no orthopnea, no palpitations, no rapid/irregular heart beat, no edema, no syncope, no lightheadedness Physical Examination Vital Signs Temp Pulse Resp BP Pulse Ox 97.0 F L 201 H 20 152/109 75 L 07/12/20 21:10 07/12/20 21:10 07/12/20 21:10 07/12/20 21:10 07/12/20 21:10 General appearance: no acute distress HEENT: Positive: PERRL Neck: Positive: neck supple Cardiac: Positive: Reg Rate and Rhythm Lungs: Positive: Decreased Breath Sounds Neuro: Positive: Grossly Intact Abdomen: Positive: Soft Male genitourinary: Positive: deferred Skin: Positive: Clear Extremities: Absent: edema Results 07/12/20 21:20 07/12/20 21:20 Cardiac Enzymes 07/12/20 Range/Units 21:20 AST 45 H (5-40) units/L Coagulation 07/12/20 Range/Units 21:20 PT 16.8 H (12.2-14.9) Sec. INR 1.36 H (0.87-1.13) APTT 30.7 (24.2-36.6) Sec. Lipids 07/12/20 Range/Units 21:20 Triglycerides 73 (2-149) mg/dL Cholesterol 88 (50-199) mg/dL HDL Cholesterol 35 L (40-59) mg/dL Cholesterol/HDL Ratio 2.51 % CBC 07/12/20 Range/Units 21:20 WBC 4.6 (4.5-11.0) K/mm3 RBC 4.45 (3.65-5.03) M/mm3 Hgb 14.7 (11.8-15.2) gm/dl Hct 43.4 (35.5-45.6) % Plt Count 197 (140-440) K/mm3 Lymph # (Auto) 1.2 (1.2-5.4) K/mm3 Mcleod # (Auto) 0.7 (0.0-0.8) K/mm3 Eos # (Auto) 0.0 (0.0-0.4) K/mm3 Baso # (Auto) 0.0 (0.0-0.1) K/mm3 Comprehensive Metabolic Panel 07/12/20 Range/Units 21:20 Sodium 133 L (137-145) mmol/L Potassium 3.6 (3.6-5.0) mmol/L Chloride 97.6 L (98-107) mmol/L Carbon Dioxide 27 (22-30) mmol/L BUN 12 (9-20) mg/dL Creatinine 0.5 L (0.8-1.3) mg/dL Glucose 96 (75-100) mg/dL Calcium 8.7 (8.4-10.2) mg/dL AST 45 H (5-40) units/L ALT 18 (7-56) units/L Alkaline Phosphatase 133 H (35-129) units/L Total Protein 8.1 (6.3-8.2) g/dL Albumin 3.4 L (3.9-5) g/dL EKG interpretations - Telemetry EKG Rhythm: Sinus Rhythm Assessment and Plan - Patient Problems (1) Chest pain Current Visit: Yes Status: Acute Qualifiers: Chest pain type: unspecified Qualified Code(s): R07.9 - Chest pain, unspecified Plan to address problem: Chest pain is atypical, ECG is cardiac enzyme levels are negative. A Lexiscan thallium stress test has been completed, results are pending. (2) Cor pulmonale Current Visit: Yes Status: Acute Plan to address problem: Patient has a history of chronic lung disease, with cor pulmonale reported on prior echocardiograms. As outpatient, he needs pulmonary evaluation and further management of his chronic lung disease as indicated.
--- NOTE | 2020-07-13 17:00 | Progress Note ---
Assessment and Plan Assessment and plan: 50-year-old male with known history of CHF, hypertension, COPD presenting to the emergency room today complaining of chest pain and shortness of breath. He has also been having some lower extremity swelling and abdominal swelling over the past 2 weeks. Patient indicates that he has been out of his medication for some time. Chest pain is about 4/10 in severity. Pain is substernal and worse on exertion. He has had associated shortness of breath. He denies any fever or chills, no nausea vomiting, no headache or dizziness, no diaphoresis. Patient denies any recent travel and no sick contacts. Denies any contact with anyone with COVID-19. Upon arrival in the emergency room patient was tachycardic and hypoxic. Work-up in the emergency room today reveals elevated BNP, CT angiogram of the chest reveals:1. No evidence of acute PTE. 2. Mild congestive heart failure superimposed on emphysema. 3. Small to moderate pericardial effusion and small pleural effusion. Upper abdominal ascites. Labs reveals elevated troponin. Patient is admitted with CHF exacerbation, non-ST elevation ND. 07/13: Patient seen and examined, reports improvement, Stress test report pending, outpatient pulmonary follow up, Anticipate discharge in am if improved. (1) Acute exacerbation of CHF (congestive heart failure) Current Visit: Yes Status: Acute Qualifiers: Heart failure type: unspecified Qualified Code(s): I50.9 - Heart failure, unspecified Plan to address problem: Patient admitted and placed on telemetry. He has been started on diuretics. Will monitor inputs and outputs and also monitor daily weight. Echo done in 01/26/2020 reveals ejection fraction of 45 to 50%. We will await evaluation by cardiology. (2) NSTEMI (non-ST elevated myocardial infarction) Current Visit: Yes Status: Acute Plan to address problem: We will check serial cardiac enzymes. Patient has been started on aspirin, sublingual nitroglycerin and IV morphine as needed for chest pain. He has also been placed on heparin drip. We will await further evaluation by cardiology. (3) COPD (chronic obstructive pulmonary disease) Current Visit: No Status: Acute Plan to address problem: She will be placed on nebulizing treatments as needed. (4) DVT prophylaxis Current Visit: No Status: Acute Plan to address problem: Patient currently on anticoagulation with heparin. (5) Full code status Current Visit: No Status: Acute Plan to address problem: Patient is a full code. History Interval history: Patient seen and examined, reports improvement in symptoms but not quit at baseline. 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 Absent: scleral icterus ENT: hearing intact, clear oral mucosa, dentition normal - Neck Neck: Present: supple, normal ROM - Respiratory Respiratory effort: normal Respiratory: bilateral: rales - Cardiovascular Rhythm: regular Heart Sounds: Present: S1 & S2. Absent: gallop, systolic murmur, diastolic murmur, rub, click - Extremities Extremities: no ischemia, pulses intact, pulses symmetrical, No edema, normal temperature, normal color, Full ROM Extremity abnormal: clubbing (Bilateral finger clubbing) Peripheral Pulses: within normal limits - Abdominal General gastrointestinal: Present: soft, non-tender, non-distended, normal bowel sounds. Absent: mass - Integumentary Integumentary: Present: clear, warm, dry. Absent: rash - Musculoskeletal Musculoskeletal: strength equal bilaterally - Psychiatric Psychiatric: appropriate mood/affect, intact judgment & insight, memory intact, cooperative - Neurologic Neurologic: CNII-XII intact, no focal deficits, moves all extremities - Constitutional Vitals: Temp Pulse Resp BP Pulse Ox 97.4 F L 109 H 20 140/103 90 07/13/20 11:03 07/13/20 11:43 07/13/20 03:45 07/13/20 11:43 07/13/20 11:03 General appearance: Present: no acute distress HEART Score - HEART Score EKG: Non-specific Age: 45-65 Risk factors: 1-2 risk factors Troponin: Troponin T 0.044 ng/mL (0.00-0.029) H 07/13/20 05:56 Troponin: 1-3x normal limit Results - Labs CBC & Chem 7: 07/12/20 21:20 07/12/20 21:20 Labs: Laboratory Last Values WBC 4.6 K/mm3 (4.5-11.0) 07/12/20 21:20 RBC 4.45 M/mm3 (3.65-5.03) 07/12/20 21:20 Hgb 14.7 gm/dl (11.8-15.2) 07/12/20 21:20 Hct 43.4 % (35.5-45.6) 07/12/20 21:20 MCV 98 fl (84-94) H 07/12/20 21:20 MCH 33 pg (28-32) H 07/12/20 21:20 MCHC 34 % (32-34) 07/12/20 21:20 RDW 19.7 % (13.2-15.2) H 07/12/20 21:20 Plt Count 197 K/mm3 (140-440) 07/12/20 21:20 Lymph % (Auto) 26.4 % (13.4-35.0) 07/12/20 21:20 Davidson % (Auto) 14.4 % (0.0-7.3) H 07/12/20 21:20 Eos % (Auto) 0.4 % (0.0-4.3) 07/12/20 21:20 Baso % (Auto) 0.6 % (0.0-1.8) 07/12/20 21:20 Lymph # (Auto) 1.2 K/mm3 (1.2-5.4) 07/12/20 21:20 Davidson # (Auto) 0.7 K/mm3 (0.0-0.8) 07/12/20 21:20 Eos # (Auto) 0.0 K/mm3 (0.0-0.4) 07/12/20 21:20 Baso # (Auto) 0.0 K/mm3 (0.0-0.1) 07/12/20 21:20 Seg Neutrophils % 58.2 % (40.0-70.0) 07/12/20 21:20 Seg Neutrophils # 2.7 K/mm3 (1.8-7.7) 07/12/20 21:20 PT 16.8 Sec. (12.2-14.9) H 07/12/20 21:20 INR 1.36 (0.87-1.13) H 07/12/20 21:20 APTT 30.7 Sec. (24.2-36.6) 07/12/20 21:20 Heparin Anti-Xa Level 0.38 U.I./ml (0.3-0.7) 07/13/20 15:30 Sodium 133 mmol/L (137-145) L 07/12/20 21:20 Potassium 3.6 mmol/L (3.6-5.0) 07/12/20 21:20 Chloride 97.6 mmol/L (98-107) L 07/12/20 21:20 Carbon Dioxide 27 mmol/L (22-30) 07/12/20 21:20 Anion Gap 12 mmol/L 07/12/20 21:20 BUN 12 mg/dL (9-20) 07/12/20 21:20 Creatinine 0.5 mg/dL (0.8-1.3) L 07/12/20 21:20 Estimated GFR > 60 ml/min 07/12/20 21:20 BUN/Creatinine Ratio 24 % 07/12/20 21:20 Glucose 96 mg/dL (75-100) 07/12/20 21:20 POC Glucose 92 mg/dL (70-105) 07/13/20 13:39 Calcium 8.7 mg/dL (8.4-10.2) 07/12/20 21:20 Total Bilirubin 1.20 mg/dL (0.1-1.2) 07/12/20 21:20 AST 45 units/L (5-40) H 07/12/20 21:20 ALT 18 units/L (7-56) 07/12/20 21:20 Alkaline Phosphatase 133 units/L (35-129) H 07/12/20 21:20 Troponin T 0.044 ng/mL (0.00-0.029) H 07/13/20 05:56 NT-Pro-B Natriuret Pep 7185 pg/mL (0-900) H 07/12/20 21:20 Total Protein 8.1 g/dL (6.3-8.2) 07/12/20 21:20 Albumin 3.4 g/dL (3.9-5) L 07/12/20 21:20 Albumin/Globulin Ratio 0.7 % 07/12/20 21:20 Triglycerides 73 mg/dL (2-149) 07/12/20 21:20 Cholesterol 88 mg/dL (50-199) 07/12/20 21:20 LDL Cholesterol Direct 46 mg/dL (50-130) L 07/12/20 21:20 HDL Cholesterol 35 mg/dL (40-59) L 07/12/20 21:20 Cholesterol/HDL Ratio 2.51 % 07/12/20 21:20 Urine Color Darlene (Yellow) 07/12/20 22:50 Urine Turbidity Slightly-cloudy (Clear) 07/12/20 22:50 Urine pH 5.0 (5.0-7.0) 07/12/20 22:50 Ur Specific Chandler 1.033 (1.003-1.030) H 07/12/20 22:50 Urine Protein >500 mg/dL (Negative) 07/12/20 22:50 Urine Glucose (UA) 50 mg/dL (Negative) 07/12/20 22:50 Urine Ketones Neg mg/dL (Negative) 07/12/20 22:50 Urine Blood Neg (Negative) 07/12/20 22:50 Urine Nitrite Neg (Negative) 07/12/20 22:50 Urine Bilirubin Sm (Negative) 07/12/20 22:50 Urine Ictotest Positive (Negative) 07/12/20 22:50 Urine Urobilinogen 4.0 mg/dL (<2.0) 07/12/20 22:50 Ur Leukocyte Esterase Neg (Negative) 07/12/20 22:50 Urine WBC (Auto) 14.0 /HPF (0.0-6.0) H 07/12/20 22:50 Urine RBC (Auto) 3.0 /HPF (0.0-6.0) 07/12/20 22:50 U Epithel Cells (Auto) < 1.0 /HPF (0-13.0) 07/12/20 22:50 Urine Mucus 3+ /HPF 07/12/20 22:50 Carpio/IV: Voiding Method Toilet IV Catheter Type [Right INT / Saline Lock Forearm] Active Medications - Current Medications Current Medications: Generic Name Dose Route Start Last Admin Trade Name Freq PRN Reason Stop Dose Admin Acetaminophen 650 mg 07/13/20 00:18 Acetaminophen 325 Mg Tab PO Q4H PRN Pain MILD(1-3)/Fever >100.5/CRAIG Albuterol 2.5 mg 07/13/20 00:18 Albuterol 2.5 Mg/3 Ml Nebu IH Q4HRT PRN Shortness Of Breath Amlodipine Besylate 10 mg 07/13/20 10:00 07/13/20 11:42 Amlodipine 10 Mg Tab PO 10 mg QDAY CONSU[facility]O Administration Arformoterol Tartrate 15 mcg 07/13/20 09:00 07/13/20 12:03 Arformoterol 15 Mcg/2 Ml Nebu IH Not Given Q12HRT [facility] Aspirin 325 mg 07/14/20 10:00 Aspirin Ec 325 Mg Tab PO QDAY CONSU[facility] Budesonide 0.5 mg 07/13/20 09:00 07/13/20 12:04 Budesonide 0.5 Mg/2 Ml Nebu IH Not Given Q12HRT [facility] Carvedilol 3.125 mg 07/13/20 08:00 07/13/20 11:42 Carvedilol 3.125 Mg Tab PO 3.125 mg BID@0800,1700 [facility] Administration Dextrose 0 ml 07/13/20 00:18 Dextrose 50% In Water (25gm) 50 Ml Syringe IV Q30MIN PRN Hypoglycemia Protocol Folic Acid 1 mg 07/13/20 10:00 07/13/20 11:43 Folic Acid 1 Mg Tab PO 1 mg QDAY [facility] Administration Furosemide 40 mg 07/13/20 06:00 07/13/20 06:41 Furosemide 40 Mg/4 Ml Inj IV 40 mg BID@0600,1800 [facility] Administration Hydralazine HCl 10 mg 07/13/20 12:21 Hydralazine 20 Mg/1 Ml Inj IV Q4HR PRN HTN SYS>160 OR MANDIE>105 Heparin Sodium/Sodium Chloride 25,000 unit in 500 mls @ 20 mls/hr 07/12/20 23:00 07/13/20 16:37 Heparin/ 0.45% Nacl-25,000 Unit/500 Ml IV 1,000 units/hr TITRATE CONSU[facility] 20 mls/hr Titration Protocol 1,000 UNITS/HR Insulin Human Lispro 0 unit 07/13/20 07:30 07/13/20 14:08 Insulin Lispro 100 Unit/Ml SUB-Q Not Given ACHS [facility] Protocol Lisinopril 20 mg 07/13/20 10:00 07/13/20 11:43 Lisinopril 20 Mg Tab PO 20 mg QDAY CONSU[facility] Administration Magnesium Hydroxide 30 ml 07/13/20 00:18 Magnesium Hydroxide (Mom) Oral Liqd Udc PO Q4H PRN Constipation Morphine Sulfate 2 mg 07/13/20 00:18 Morphine 2 Mg/1 Ml Inj IV Q5MIN PRN Chest Pain unrelieved by NTG Nitroglycerin 0.4 mg 07/13/20 00:18 Nitroglycerin 0.4 Mg Tab Subl SL Q5M PRN Chest Pain Ondansetron HCl 4 mg 07/13/20 00:18 Ondansetron 4 Mg/2 Ml Inj IV Q8H PRN Nausea And Vomiting Sodium Chloride 10 ml 07/13/20 10:00 07/13/20 11:44 Sodium Chloride 0.9% 10 Ml Flush Syringe IV Not Given BID [facility]SU[facility] Sodium Chloride 10 ml 07/13/20 00:18 07/13/20 06:41 Sodium Chloride 0.9% 10 Ml Flush Syringe IV 10 ml PRN PRN Administration LINE FLUSH Nutrition/Malnutrition Assess - Dietary Evaluation Nutrition/Malnutrition Findings: Nutrition Notes Start: 07/13/20 11:38 Freq: Status: Active Protocol: Document 07/13/20 11:38 AB (Rec: 07/13/20 12:00 AB [id number]) Co-Sign 07/13/20 11:38 LP Nutrition Notes 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 Spoke with pt on the phone and his appetite is good. Pt is very hungry and would like his diet changed TINY. Pt reports a difficulty chewing d/t not having teeth. Pt states a wt loss of 5 lbs in 2 weeks from being ill. Pt denies having EN . Tj Score of 20. Talked with RN on diet changes and she is getting krystyna of . Percent of energy/protein needs met: 0%/0% Burn Absent Trauma Absent GI Symptoms None Difficulty In Chewing Food Allergy No Current % PO Negligible Minimum of two criteria No Fluid Accumulation Moderate to Severe (severe) #1 Nutrition Diagnosis No nutrition diagnosis at this time Is patient on ventilator? No Is Patient Ambulatory and/or Out of Bed No REE-([facility]-confined to bed) [phone] Calculation Used for Recommendations [place] Jeor Additional Notes Protein: 51-64 g (.8-1 g/kg) Fluid: 1 ml/kcal or per MD Nutrition Intervention Change Diet Order: Diet advancement when medically feasible Goal #1 Diet advancement Anticipated Discharge Needs: Cardiac Follow-Up By: 07/16/20 Additional Comments F/U for diet advancement, intakes
--- NOTE | 2020-07-13 19:33 | Treadmill Report ---
THALLIUM STRESS TEST LEFT VENTRICLE: Left ventricular chamber size is within normal spread. Perfusion study demonstrates [id number] uptake of the tracer in all segments, no defects identified. Gated analysis demonstrates normal left ventricular systolic function, ejection fraction of 54%. CONCLUSION: Normal myocardial perfusion study. JOB# [id number] CA/NTS
[2020-07-14] MEDS: INSULIN LISPRO 100 UNIT/ML SUB-Q SCH ×5 (04:58→21:00)
[2020-07-14] MEDS: FUROSEMIDE 40 MG/4 ML INJ IV SCH (06:59)
[2020-07-14 07:11] LABS: Basophils % (Auto) 0.8 % (0.0-1.8); Eosinophils # (Auto) 0.1 K/mm3 (0.0-0.4); Eosinophils % (Auto) 1.2 % (0.0-4.3); Hematocrit 38.9 % (35.5-45.6); Hemoglobin 13.1 gm/dl (11.8-15.2); Lymphocytes # (Auto) 1.2 K/mm3 (1.2-5.4); Lymphocytes % (Auto) 21.8 % (13.4-35.0); Mean Corpuscular HGB Conc 34 % (32-34); Mean Corpuscular Volume 96 fl (84-94); Monocytes # (Auto) 0.8 K/mm3 (0.0-0.8); Monocytes % (Auto) 14.5 % (0.0-7.3); Platelet Count 195 K/mm3 (140-440); Red Blood Count 4.05 M/mm3 (3.65-5.03); Red Cell Distribution Width 18.9 % (13.2-15.2)
[2020-07-14 07:21] LABS: INR 1.36 (0.87-1.13)
[2020-07-14 07:30] LABS: Blood Urea Nitrogen 13 mg/dL (9-20); Calcium 8.2 mg/dL (8.4-10.2); Hemolysis Index 13
[2020-07-14 07:32] LABS: BUN/Creatinine Ratio 22
[2020-07-14] MEDS: ASPIRIN EC 325 MG TAB PO SCH (09:15)
[2020-07-14] MEDS: carvediloL 3.125 MG TAB PO SCH ×2 (09:15→17:22)
[2020-07-14] MEDS: FOLIC ACID 1 MG TAB PO SCH (09:15)
[2020-07-14] MEDS: amLODIPine 10 MG TAB PO SCH (10:17)
[2020-07-14] MEDS: LISINOPRIL 20 MG TAB PO SCH (10:33)
--- NOTE | 2020-07-14 10:51 | Progress Note ---
Assessment and Plan Assessment and plan: 50-year-old male with known history of CHF, hypertension, COPD presenting to the emergency room today complaining of chest pain and shortness of breath. He has also been having some lower extremity swelling and abdominal swelling over the past 2 weeks. Patient indicates that he has been out of his medication for some time. Chest pain is about 4/10 in severity. Pain is substernal and worse on exertion. He has had associated shortness of breath. He denies any fever or chills, no nausea vomiting, no headache or dizziness, no diaphoresis. Patient denies any recent travel and no sick contacts. Denies any contact with anyone with COVID-19. Upon arrival in the emergency room patient was tachycardic and hypoxic. Work-up in the emergency room today reveals elevated BNP, CT angiogram of the chest reveals:1. No evidence of acute PTE. 2. Mild congestive heart failure superimposed on emphysema. 3. Small to moderate pericardial effusion and small pleural effusion. Upper abdominal ascites. Labs reveals elevated troponin. Patient is admitted with CHF exacerbation, non-ST elevation SD. 07/13: Patient seen and examined, reports improvement, Stress test report pending, outpatient pulmonary follow up, Anticipate discharge in am if improved. 07/14: Follow discussion with the patient we will resulted the patient does drink 6 packs of beer daily states he quit 2 months ago since he has been here no evidence of withdrawal noted. His abdomen is still protuberant and edematous with 2+ pitting edema bilateral lower extremity. Nevertheless he does have significant hypotension resulting in decrease of Lasix to daily. We will also obtain an abdominal ultrasound he did have an episode of shortness of breath last night and is on 2 L of oxygen right now will reevaluate with possible underlying cor pulmonale with congestive heart failure and probably COPD exacerbation. He also stated that he is not that much mobile at home. Will obtain physical therapy evaluation. We will watch 24 to 48 hours more. (1) Acute exacerbation of CHF (congestive heart failure) Current Visit: Yes Status: Acute Qualifiers: Heart failure type: unspecified Qualified Code(s): I50.9 - Heart failure, unspecified Plan to address problem: Patient admitted and placed on telemetry. He has been started on diuretics. Will monitor inputs and outputs and also monitor daily weight. Echo done in 01/26/2020 reveals ejection fraction of 45 to 50%. We will await evaluation by cardiology. (2) NSTEMI (non-ST elevated myocardial infarction) Current Visit: Yes Status: Acute Plan to address problem: We will check serial cardiac enzymes. Patient has been started on aspirin, sublingual nitroglycerin and IV morphine as needed for chest pain. He has also been placed on heparin drip. We will await further evaluation by cardiology. (3) COPD (chronic obstructive pulmonary disease) Current Visit: No Status: Acute Plan to address problem: She will be placed on nebulizing treatments as needed. (4) DVT prophylaxis Current Visit: No Status: Acute Plan to address problem: Patient currently on anticoagulation with heparin. (5) Full code status Current Visit: No Status: Acute Plan to address problem: Patient is a full code. History Interval history: Patient seen and examined, reports improvement in symptoms but not quit at baseline.. Patient reports that he still has lots of fluid as evidenced in swollen abdomen and edema in the leg. He did complain of some shortness of breath last night but improving this morning. Hospitalist Physical - Physical exam Narrative exam: General appearance: Present: no acute distress, well-nourished - EENT Eyes: Present: PERRL, EOM intact. Absent: scleral icterus ENT: hearing intact, clear oral mucosa, dentition normal - Neck Neck: Present: supple, normal ROM - Respiratory Respiratory effort: normal Respiratory: bilateral: rales - Cardiovascular Rhythm: regular Heart Sounds: Present: S1 & S2. Absent: gallop, systolic murmur, diastolic murmur, rub, click - Extremities Extremities: no ischemia, pulses intact, pulses symmetrical, No edema, normal temperature, normal color, Full ROM Extremity abnormal: clubbing (Bilateral finger clubbing) Peripheral Pulses: within normal limits - Abdominal General gastrointestinal: Present: soft, non-tender, distended abdomen edematous, normal bowel sounds. Absent: mass - Integumentary Integumentary: Present: Bilateral lower extremity edema - Musculoskeletal Musculoskeletal: strength equal bilaterally - Psychiatric Psychiatric: appropriate mood/affect, intact judgment & insight, memory intact, cooperative - Neurologic Neurologic: CNII-XII intact, no focal deficits, moves all extremities - Constitutional Vitals: Temp Pulse Resp BP Pulse Ox 97.5 F L 96 H 18 110/86 90 07/14/20 07:39 07/14/20 09:15 07/14/20 08:10 07/14/20 09:15 07/14/20 07:39 General appearance: Present: no acute distress, well-nourished HEART Score - HEART Score EKG: Non-specific Age: 45-65 Risk factors: 1-2 risk factors Troponin: Troponin T 0.044 ng/mL (0.00-0.029) H 07/13/20 05:56 Troponin: 1-3x normal limit Results - Labs CBC & Chem 7: 07/14/20 06:18 07/14/20 06:18 Labs: Laboratory Last Values WBC 5.7 K/mm3 (4.5-11.0) 07/14/20 06:18 RBC 4.05 M/mm3 (3.65-5.03) 07/14/20 06:18 Hgb 13.1 gm/dl (11.8-15.2) 07/14/20 06:18 Hct 38.9 % (35.5-45.6) 07/14/20 06:18 MCV 96 fl (84-94) H 07/14/20 06:18 MCH 32 pg (28-32) 07/14/20 06:18 MCHC 34 % (32-34) 07/14/20 06:18 RDW 18.9 % (13.2-15.2) H 07/14/20 06:18 Plt Count 195 K/mm3 (140-440) 07/14/20 06:18 Lymph % (Auto) 21.8 % (13.4-35.0) 07/14/20 06:18 [place] % (Auto) 14.5 % (0.0-7.3) H 07/14/20 06:18 Eos % (Auto) 1.2 % (0.0-4.3) 07/14/20 06:18 Baso % (Auto) 0.8 % (0.0-1.8) 07/14/20 06:18 Lymph # (Auto) 1.2 K/mm3 (1.2-5.4) 07/14/20 06:18 [place] # (Auto) 0.8 K/mm3 (0.0-0.8) 07/14/20 06:18 Eos # (Auto) 0.1 K/mm3 (0.0-0.4) 07/14/20 06:18 Baso # (Auto) 0.0 K/mm3 (0.0-0.1) 07/14/20 06:18 Seg Neutrophils % 61.7 % (40.0-70.0) 07/14/20 06:18 Seg Neutrophils # 3.5 K/mm3 (1.8-7.7) 07/14/20 06:18 PT 16.8 Sec. (12.2-14.9) H 07/14/20 06:18 INR 1.36 (0.87-1.13) H 07/14/20 06:18 APTT 30.7 Sec. (24.2-36.6) 07/12/20 21:20 Heparin Anti-Xa Level 0.38 U.I./ml (0.3-0.7) 07/13/20 15:30 Sodium 134 mmol/L (137-145) L 07/14/20 06:18 Potassium 3.5 mmol/L (3.6-5.0) L 07/14/20 06:18 Chloride 97.3 mmol/L (98-107) L 07/14/20 06:18 Carbon Dioxide 30 mmol/L (22-30) 07/14/20 06:18 Anion Gap 10 mmol/L 07/14/20 06:18 BUN 13 mg/dL (9-20) 07/14/20 06:18 Creatinine 0.6 mg/dL (0.8-1.3) L 07/14/20 06:18 Estimated GFR > 60 ml/min 07/14/20 06:18 BUN/Creatinine Ratio 22 % 07/14/20 06:18 Glucose 104 mg/dL (75-100) H 07/14/20 06:18 POC Glucose 91 mg/dL (70-105) 07/14/20 07:41 Calcium 8.2 mg/dL (8.4-10.2) L 07/14/20 06:18 Total Bilirubin 1.20 mg/dL (0.1-1.2) 07/12/20 21:20 AST 45 units/L (5-40) H 07/12/20 21:20 ALT 18 units/L (7-56) 07/12/20 21:20 Alkaline Phosphatase 133 units/L (35-129) H 07/12/20 21:20 Troponin T 0.044 ng/mL (0.00-0.029) H 07/13/20 05:56 NT-Pro-B Natriuret Pep 7185 pg/mL (0-900) H 07/12/20 21:20 Total Protein 8.1 g/dL (6.3-8.2) 07/12/20 21:20 Albumin 3.4 g/dL (3.9-5) L 07/12/20 21:20 Albumin/Globulin Ratio 0.7 % 07/12/20 21:20 Triglycerides 73 mg/dL (2-149) 07/12/20 21:20 Cholesterol 88 mg/dL (50-199) 07/12/20 21:20 LDL Cholesterol Direct 46 mg/dL (50-130) L 07/12/20 21:20 HDL Cholesterol 35 mg/dL (40-59) L 07/12/20 21:20 Cholesterol/HDL Ratio 2.51 % 07/12/20 21:20 Urine Color Darlene (Yellow) 07/12/20 22:50 Urine Turbidity Slightly-cloudy (Clear) 07/12/20 22:50 Urine pH 5.0 (5.0-7.0) 07/12/20 22:50 Ur Specific [place] 1.033 (1.003-1.030) H 07/12/20 22:50 Urine Protein >500 mg/dL (Negative) 07/12/20 22:50 Urine Glucose (UA) 50 mg/dL (Negative) 07/12/20 22:50 Urine Ketones Neg mg/dL (Negative) 07/12/20 22:50 Urine Blood Neg (Negative) 07/12/20 22:50 Urine Nitrite Neg (Negative) 07/12/20 22:50 Urine Bilirubin Sm (Negative) 07/12/20 22:50 Urine Ictotest Positive (Negative) 07/12/20 22:50 Urine Urobilinogen 4.0 mg/dL (<2.0) 07/12/20 22:50 Ur Leukocyte Esterase Neg (Negative) 07/12/20 22:50 Urine WBC (Auto) 14.0 /HPF (0.0-6.0) H 07/12/20 22:50 Urine RBC (Auto) 3.0 /HPF (0.0-6.0) 07/12/20 22:50 U Epithel Cells (Auto) < 1.0 /HPF (0-13.0) 07/12/20 22:50 Urine Mucus 3+ /HPF 07/12/20 22:50 [place]/IV: Voiding Method Toilet IV Catheter Type [Right INT / Saline Lock Forearm] Active Medications - Current Medications Current Medications: Generic Name Dose Route Start Last Admin Trade Name Freq PRN Reason Stop Dose Admin Acetaminophen 650 mg 07/13/20 00:18 Acetaminophen 325 Mg Tab PO Q4H PRN Pain MILD(1-3)/Fever >100.5/CRAIG Albuterol 2.5 mg 07/13/20 00:18 Albuterol 2.5 Mg/3 Ml Nebu IH Q4HRT PRN Shortness Of Breath Amlodipine Besylate 10 mg 07/13/20 10:00 07/13/20 11:42 Amlodipine 10 Mg Tab PO 10 mg QDAY CONSUELO Administration Arformoterol Tartrate 15 mcg 07/13/20 09:00 07/13/20 19:23 Arformoterol 15 Mcg/2 Ml Nebu IH 15 mcg Q12HRT CONSUELO Administration Aspirin 325 mg 07/14/20 10:00 07/14/20 09:15 Aspirin Ec 325 Mg Tab PO 325 mg QDAY CONSUELO Administration Budesonide 0.5 mg 07/13/20 09:00 07/13/20 19:23 Budesonide 0.5 Mg/2 Ml Nebu IH 0.5 mg Q12HRT CONSUELO Administration Carvedilol 3.125 mg 07/13/20 08:00 07/14/20 09:15 Carvedilol 3.125 Mg Tab PO 3.125 mg BID@0800,1700 CONSUELO Administration Dextrose 0 ml 07/13/20 00:18 Dextrose 50% In Water (25gm) 50 Ml Syringe IV Q30MIN PRN Hypoglycemia Protocol Folic Acid 1 mg 07/13/20 10:00 07/14/20 09:15 Folic Acid 1 Mg Tab PO 1 mg QDAY CONSUELO Administration Furosemide 40 mg 07/14/20 10:20 Furosemide 40 Mg/4 Ml Inj IV QDAY CONSUELO Hydralazine HCl 10 mg 07/13/20 12:21 Hydralazine 20 Mg/1 Ml Inj IV Q4HR PRN HTN SYS>160 OR MANDIE>105 Insulin Human Lispro 0 unit 07/13/20 07:30 07/14/20 08:07 Insulin Lispro 100 Unit/Ml SUB-Q Not Given ACHS [facility] Protocol Lisinopril 20 mg 07/13/20 10:00 07/13/20 11:43 Lisinopril 20 Mg Tab PO 20 mg QDAY CONSUELO Administration Magnesium Hydroxide 30 ml 07/13/20 00:18 Magnesium Hydroxide (Mom) Oral Liqd Udc PO Q4H PRN Constipation Morphine Sulfate 2 mg 07/13/20 00:18 Morphine 2 Mg/1 Ml Inj IV Q5MIN PRN Chest Pain unrelieved by NTG Nitroglycerin 0.4 mg 07/13/20 00:18 Nitroglycerin 0.4 Mg Tab Subl SL Q5M PRN Chest Pain Ondansetron HCl 4 mg 07/13/20 00:18 Ondansetron 4 Mg/2 Ml Inj IV Q8H PRN Nausea And Vomiting Sodium Chloride 10 ml 07/13/20 10:00 07/14/20 04:59 Sodium Chloride 0.9% 10 Ml Flush Syringe IV Not Given BID CONSUELO Sodium Chloride 10 ml 07/13/20 00:18 07/13/20 06:41 Sodium Chloride 0.9% 10 Ml Flush Syringe IV 10 ml PRN PRN Administration LINE FLUSH Nutrition/Malnutrition Assess - Dietary Evaluation Nutrition/Malnutrition Findings: Nutrition Notes Start: 07/13/20 11:38 Freq: Status: Active Protocol: Document 07/13/20 11:38 AB (Rec: 07/13/20 12:00 AB [id number]) Co-Sign 07/13/20 11:38 LP Nutrition Notes Need for Assessment 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 Spoke with pt on the phone and his appetite is good. Pt is very hungry and would like his diet changed TINY. Pt reports a difficulty chewing d/t not having teeth. Pt states a wt loss of 5 lbs in 2 weeks from being ill. Pt denies having EN . Tj Score of 20. Talked with RN on diet changes and she is getting ahold of MD. Percent of energy/protein needs met: 0%/0% Burn Absent Trauma Absent GI Symptoms None Difficulty In Chewing Food Allergy No Current % PO Negligible Minimum of two criteria No Fluid Accumulation Moderate to Severe (severe) #1 Nutrition Diagnosis No nutrition diagnosis at this time Is patient on ventilator? No Is Patient Ambulatory and/or Out of Bed No REE-([place]-St. Jeor-confined to bed) 1182.589 Calculation Used for Recommendations [facility] or Additional Notes Protein: 51-64 g (.8-1 g/kg) Fluid: 1 ml/kcal or per MD Nutrition Intervention Change Diet Order: Diet advancement when medically feasible Goal #1 Diet advancement Anticipated Discharge Needs: Cardiac Follow-Up By: 07/16/20 Additional Comments F/U for diet advancement, intakes
[2020-07-14] MEDS: ARFORMOTEROL 15 MCG/2 ML NEBU IH SCH ×2 (12:23→21:29)
[2020-07-14] MEDS: BUDESONIDE 0.5 MG/2 ML NEBU IH SCH ×2 (12:23→21:29)
[2020-07-14] MEDS ORDERED: FUROSEMIDE 40 MG/4 ML INJ IV ONE (12:30)
--- NOTE | 2020-07-14 16:22 | Progress Note ---
Assessment and Plan Atypical chest pain: Negative MPI Cor pulmonale Tobacco use Recommend: Continue current therapy Tobacco cessation Subjective Date of service: 07/14/20 Interval history: NO acute events Objective Vital Signs Temp Pulse Pulse Resp Resp BP Pulse Ox 07/14/20 11:38 98.0 F 94 H 18 119/92 97 07/14/20 09:15 96 H 110/86 07/14/20 08:10 18 07/14/20 07:39 97.5 F L 96 H 18 110/86 90 07/14/20 07:20 95 H 07/14/20 04:00 93 H 07/14/20 03:36 98.4 F 93 H 16 91/66 98 07/13/20 23:29 96 07/13/20 23:28 97.8 F 90 16 100/69 88 07/13/20 20:00 94 H 07/13/20 19:26 95 H 18 07/13/20 19:06 97.3 F L 94 H 16 114/89 95 07/13/20 17:51 102 H 104/68 - Physical Examination HEENT: Positive: PERRL Neck: Positive: neck supple Cardiac: Positive: Reg Rate and Rhythm Lungs: Positive: Decreased Breath Sounds Neuro: Positive: Grossly Intact Abdomen: Positive: Soft Skin: Positive: Clear Extremities: Absent: edema - Labs and Meds Coagulation 07/14/20 Range/Units 06:18 PT 16.8 H (12.2-14.9) Sec. INR 1.36 H (0.87-1.13) CBC 07/14/20 Range/Units 06:18 WBC 5.7 (4.5-11.0) K/mm3 RBC 4.05 (3.65-5.03) M/mm3 Hgb 13.1 (11.8-15.2) gm/dl Hct 38.9 (35.5-45.6) % Plt Count 195 (140-440) K/mm3 Lymph # (Auto) 1.2 (1.2-5.4) K/mm3 [place] # (Auto) 0.8 (0.0-0.8) K/mm3 Eos # (Auto) 0.1 (0.0-0.4) K/mm3 Baso # (Auto) 0.0 (0.0-0.1) K/mm3 Comprehensive Metabolic Panel 07/14/20 Range/Units 06:18 Sodium 134 L (137-145) mmol/L Potassium 3.5 L (3.6-5.0) mmol/L Chloride 97.3 L (98-107) mmol/L Carbon Dioxide 30 (22-30) mmol/L BUN 13 (9-20) mg/dL Creatinine 0.6 L (0.8-1.3) mg/dL Glucose 104 H (75-100) mg/dL Calcium 8.2 L (8.4-10.2) mg/dL
--- NOTE | 2020-07-14 18:33 | Ultrasound Report ---
ULTRASOUND ABDOMEN, COMPLETE INDICATION: pleural effusion. COMPARISON: None available. FINDINGS: Pancreas: Normal. Abdominal Aorta: Normal. IVC: Normal. Liver: Liver is enlarged measuring 22 cm. The hepatic parenchyma is heterogeneous. No discrete mass n oted. Gallbladder: There is prominent diffuse gallbladder wall thickening, measuring 9 mm.. The gallbladder is not abnormally distended. There is a small gallstone in the gallbladder neck. Bile ducts: Normal. Common Bile Duct measures 3 mm. Right Kidney: Normal. Left Kidney: Normal. Spleen: Normal. Free fluid: Moderate amount of ascites is seen throughout the upper abdomen. Additional Findings: None. IMPRESSION: 1. Hepatomegaly. The hepatic parenchyma is diffusely heterogeneous indicative of hepatocellular disea se.. 2. Abnormal appearance of the gallbladder. There is marked diffuse gallbladder wall thickening with s charleen gallstone present. The appearance of the gallbladder is more suggestive of gallbladder wall thi ckening that is seen with severe hepatocellular disease rather than acute cholecystitis. However, cli nical correlation is recommended. 3. Small to moderate amount of ascites noted within the abdomen. Signer Name: Charu German MD Signed: 07/14/2020 6:28 PM Workstation Name: [id number]
[2020-07-15 07:48] LABS: Hematocrit 39.4 % (35.5-45.6); Hemoglobin 13.6 gm/dl (11.8-15.2); Mean Corpuscular HGB Conc 35 % (32-34); Mean Corpuscular Volume 96 fl (84-94); Platelet Count 187 K/mm3 (140-440); Red Blood Count 4.13 M/mm3 (3.65-5.03); Red Cell Distribution Width 18.5 % (13.2-15.2)
[2020-07-15 08:21] LABS: Alanine Aminotransferase 15 units/L (7-56); Albumin 3.1 g/dL (3.9-5); Blood Urea Nitrogen 15 mg/dL (9-20); Calcium 8.2 mg/dL (8.4-10.2); Hemolysis Index 0
[2020-07-15 08:30] LABS: BUN/Creatinine Ratio 25
--- NOTE | 2020-07-15 09:02 | Progress Note ---
Assessment and Plan Assessment and plan: 50-year-old male with known history of CHF, hypertension, COPD presenting to the emergency room today complaining of chest pain and shortness of breath. He has also been having some lower extremity swelling and abdominal swelling over the past 2 weeks. Patient indicates that he has been out of his medication for some time. Chest pain is about 4/10 in severity. Pain is substernal and worse on exertion. He has had associated shortness of breath. He denies any fever or chills, no nausea vomiting, no headache or dizziness, no diaphoresis. Patient denies any recent travel and no sick contacts. Denies any contact with anyone with COVID-19. Upon arrival in the emergency room patient was tachycardic and hypoxic. Work-up in the emergency room today reveals elevated BNP, CT angiogram of the chest reveals:1. No evidence of acute PTE. 2. Mild congestive heart failure superimposed on emphysema. 3. Small to moderate pericardial effusion and small pleural effusion. Upper abdominal ascites. Labs reveals elevated troponin. Patient is admitted with CHF exacerbation, non-ST elevation OK. 07/13: Patient seen and examined, reports improvement, Stress test report pending, outpatient pulmonary follow up, Anticipate discharge in am if improved. 07/14: Follow discussion with the patient we will resulted the patient does drink 6 packs of beer daily states he quit 2 months ago since he has been here no evidence of withdrawal noted. His abdomen is still protuberant and edematous with 2+ pitting edema bilateral lower extremity. Nevertheless he does have significant hypotension resulting in decrease of Lasix to daily. We will also obtain an abdominal ultrasound he did have an episode of shortness of breath last night and is on 2 L of oxygen right now will reevaluate with possible underlying cor pulmonale with congestive heart failure and probably COPD exacerbation. He also stated that he is not that much mobile at home. Will obtain physical therapy evaluation. We will watch 24 to 48 hours more. 07/15: Report of abdominal ultrasound:IMPRESSION: 1. Hepatomegaly. The hepatic parenchyma is diffusely heterogeneous indicative of hepatocellular disease.. 2. Abnormal appearance of the gallbladder. There is marked diffuse gallbladder wall thickening with single gallstone present. The appearance of the gallbladder is more suggestive of gallbladder wall thickening that is seen with severe hepatocellular disease rather than acute cholecystitis. However, clinical correlation is recommended. 3. Small to moderate amount of ascites noted within the abdomen. I have discussed this findings with the patient likely indicative of history of severe alcohol use. We will check an AFP for baseline. I have added spironolactone to the patient. While he has small to moderate ascites does not appear large enough to tap at this time. He understands that he may need paracentesis sometime in the future. I also discussed fluid restrictions to 1.2 L daily. He verbalized understanding. We will diurese for 1 more day and discharge in a.m.. Will perform a home O2 evaluation prior to discharge. (1) Acute exacerbation of CHF (congestive heart failure) Current Visit: Yes Status: Acute Qualifiers: Heart failure type: unspecified Qualified Code(s): I50.9 - Heart failure, unspecified Plan to address problem: Patient admitted and placed on telemetry. He has been started on diuretics. Will monitor inputs and outputs and also monitor daily weight. Echo done in 01/26/2020 reveals ejection fraction of 45 to 50%. We will await evaluation by cardiology. (2) NSTEMI (non-ST elevated myocardial infarction) Current Visit: Yes Status: Acute Plan to address problem: We will check serial cardiac enzymes. Patient has been started on aspirin, sublingual nitroglycerin and IV morphine as needed for chest pain. He has also been placed on heparin drip. We will await further evaluation by cardiology. (3) COPD (chronic obstructive pulmonary disease) Current Visit: No Status: Acute Plan to address problem: She will be placed on nebulizing treatments as needed. (4) hepatocellular disease (5) Mild hyponatremia (6) Mild to moderate ascites (7) DVT prophylaxis Current Visit: No Status: Acute Plan to address problem: Patient currently on anticoagulation with heparin. (8) Full code status Current Visit: No Status: Acute Plan to address problem: Patient is a full code. History Interval history: Patient seen and examined, reports improvement in symptoms but not quit at baseline. Still with pursed lip breathing this morning. Although able to have full conversation. He states that it comes and goes. But reports much improvement Hospitalist Physical - Physical exam Narrative exam: General appearance: Present: no acute distress, well-nourished chronic skin changes. - EENT Eyes: Present: PERRL, EOM intact. Absent: scleral icterus ENT: hearing intact, clear oral mucosa, dentition normal - Neck Neck: Present: supple, normal ROM - Respiratory Respiratory effort: normal Respiratory: bilateral: rales - Cardiovascular Rhythm: regular Heart Sounds: Present: S1 & S2. Absent: gallop, systolic murmur, diastolic murmur, rub, click - Extremities Extremities: no ischemia, pulses intact, pulses symmetrical, No edema, normal temperature, normal color, Full ROM Extremity abnormal: clubbing (Bilateral finger clubbing) Peripheral Pulses: within normal limits - Abdominal General gastrointestinal: Present: soft, non-tender, distended abdomen edematous, normal bowel sounds. Absent: mass - Integumentary Integumentary: Present: Bilateral lower extremity edema +2 - Musculoskeletal Musculoskeletal: strength equal bilaterally - Psychiatric Psychiatric: appropriate mood/affect, intact judgment & insight, memory intact, cooperative - Neurologic Neurologic: CNII-XII intact, no focal deficits, moves all extremities - Constitutional Vitals: Temp Pulse Resp BP Pulse Ox 97.5 F L 85 18 101/71 98 07/15/20 07:26 07/15/20 07:26 07/15/20 07:26 07/15/20 07:26 07/15/20 07:26 General appearance: Present: no acute distress, well-nourished HEART Score - HEART Score EKG: Non-specific Age: 45-65 Risk factors: 1-2 risk factors Troponin: Troponin T 0.044 ng/mL (0.00-0.029) H 07/13/20 05:56 Troponin: 1-3x normal limit Results - Labs CBC & Chem 7: 07/14/20 06:18 07/15/20 07:16 Labs: Laboratory Last Values WBC 5.7 K/mm3 (4.5-11.0) 07/14/20 06:18 RBC 4.05 M/mm3 (3.65-5.03) 07/14/20 06:18 Hgb 13.1 gm/dl (11.8-15.2) 07/14/20 06:18 Hct 38.9 % (35.5-45.6) 07/14/20 06:18 MCV 96 fl (84-94) H 07/14/20 06:18 MCH 32 pg (28-32) 07/14/20 06:18 MCHC 34 % (32-34) 07/14/20 06:18 RDW 18.9 % (13.2-15.2) H 07/14/20 06:18 Plt Count 195 K/mm3 (140-440) 07/14/20 06:18 Lymph % (Auto) 21.8 % (13.4-35.0) 07/14/20 06:18 [place] % (Auto) 14.5 % (0.0-7.3) H 07/14/20 06:18 Eos % (Auto) 1.2 % (0.0-4.3) 07/14/20 06:18 Baso % (Auto) 0.8 % (0.0-1.8) 07/14/20 06:18 Lymph # (Auto) 1.2 K/mm3 (1.2-5.4) 07/14/20 06:18 [place] # (Auto) 0.8 K/mm3 (0.0-0.8) 07/14/20 06:18 Eos # (Auto) 0.1 K/mm3 (0.0-0.4) 07/14/20 06:18 Baso # (Auto) 0.0 K/mm3 (0.0-0.1) 07/14/20 06:18 Seg Neutrophils % 61.7 % (40.0-70.0) 07/14/20 06:18 Seg Neutrophils # 3.5 K/mm3 (1.8-7.7) 07/14/20 06:18 PT 16.8 Sec. (12.2-14.9) H 07/14/20 06:18 INR 1.36 (0.87-1.13) H 07/14/20 06:18 APTT 30.7 Sec. (24.2-36.6) 07/12/20 21:20 Heparin Anti-Xa Level 0.38 U.I./ml (0.3-0.7) 07/13/20 15:30 Sodium 130 mmol/L (137-145) L 07/15/20 07:16 Potassium 3.8 mmol/L (3.6-5.0) 07/15/20 07:16 Chloride 96.8 mmol/L (98-107) L 07/15/20 07:16 Carbon Dioxide 29 mmol/L (22-30) 07/15/20 07:16 Anion Gap 8 mmol/L 07/15/20 07:16 BUN 15 mg/dL (9-20) 07/15/20 07:16 Creatinine 0.6 mg/dL (0.8-1.3) L 07/15/20 07:16 Estimated GFR > 60 ml/min 07/15/20 07:16 BUN/Creatinine Ratio 25 % 07/15/20 07:16 Glucose 99 mg/dL (75-100) 07/15/20 07:16 POC Glucose 94 mg/dL (70-105) 07/15/20 07:58 Calcium 8.2 mg/dL (8.4-10.2) L 07/15/20 07:16 Total Bilirubin 1.30 mg/dL (0.1-1.2) H 07/15/20 07:16 AST 35 units/L (5-40) 07/15/20 07:16 ALT 15 units/L (7-56) 07/15/20 07:16 Alkaline Phosphatase 102 units/L (35-129) 07/15/20 07:16 Troponin T 0.044 ng/mL (0.00-0.029) H 07/13/20 05:56 NT-Pro-B Natriuret Pep 7185 pg/mL (0-900) H 07/12/20 21:20 Total Protein 7.8 g/dL (6.3-8.2) 07/15/20 07:16 Albumin 3.1 g/dL (3.9-5) L 07/15/20 07:16 Albumin/Globulin Ratio 0.7 % 07/15/20 07:16 Triglycerides 73 mg/dL (2-149) 07/12/20 21:20 Cholesterol 88 mg/dL (50-199) 07/12/20 21:20 LDL Cholesterol Direct 46 mg/dL (50-130) L 07/12/20 21:20 HDL Cholesterol 35 mg/dL (40-59) L 07/12/20 21:20 Cholesterol/HDL Ratio 2.51 % 07/12/20 21:20 Urine Color [place]arl[place] (Yellow) 07/12/20 22:50 Urine Turbidity Slightly-cloudy (Clear) 07/12/20 22:50 Urine pH 5.0 (5.0-7.0) 07/12/20 22:50 Ur Specific [place] 1.033 (1.003-1.030) H 07/12/20 22:50 Urine Protein >500 mg/dL (Negative) 07/12/20 22:50 Urine Glucose (UA) 50 mg/dL (Negative) 07/12/20 22:50 Urine Ketones Neg mg/dL (Negative) 07/12/20 22:50 Urine Blood Neg (Negative) 07/12/20 22:50 Urine Nitrite Neg (Negative) 07/12/20 22:50 Urine Bilirubin Sm (Negative) 07/12/20 22:50 Urine Ictotest Positive (Negative) 07/12/20 22:50 Urine Urobilinogen 4.0 mg/dL (<2.0) 07/12/20 22:50 Ur Leukocyte Esterase Neg (Negative) 07/12/20 22:50 Urine WBC (Auto) 14.0 /HPF (0.0-6.0) H 07/12/20 22:50 Urine RBC (Auto) 3.0 /HPF (0.0-6.0) 07/12/20 22:50 U Epithel Cells (Auto) < 1.0 /HPF (0-13.0) 07/12/20 22:50 Urine Mucus 3+ /HPF 07/12/20 22:50 Coronavirus (PCR) Negative (Negative) 07/14/20 09:20 Carpio/IV: Voiding Method Toilet IV Catheter Type [Right INT / Saline Lock Forearm] Active Medications - Current Medications Current Medications: Generic Name Dose Route Start Last Admin Trade Name Freq PRN Reason Stop Dose Admin Acetaminophen 650 mg 07/13/20 00:18 Acetaminophen 325 Mg Tab PO Q4H PRN Pain MILD(1-3)/Fever >100.5/CRAIG Albuterol 2.5 mg 07/13/20 00:18 Albuterol 2.5 Mg/3 Ml Nebu IH Q4HRT PRN Shortness Of Breath Amlodipine Besylate 10 mg 07/13/20 10:00 07/14/20 10:17 Amlodipine 10 Mg Tab PO Not Given QDAY CONSUELO Arformoterol Tartrate 15 mcg 07/13/20 09:00 07/14/20 21:29 Arformoterol 15 Mcg/2 Ml Nebu IH Not Given Q12HRT CONSUELO Aspirin 325 mg 07/14/20 10:00 07/14/20 09:15 Aspirin Ec 325 Mg Tab PO 325 mg QDAY CONSUELO Administration Budesonide 0.5 mg 07/13/20 09:00 07/14/20 21:29 Budesonide 0.5 Mg/2 Ml Nebu IH Not Given Q12HRT [facility] Carvedilol 3.125 mg 07/13/20 08:00 07/14/20 17:22 Carvedilol 3.125 Mg Tab PO 3.125 mg BID@0800,1700 [facility] Administration Dextrose 0 ml 07/13/20 00:18 Dextrose 50% In Water (25gm) 50 Ml Syringe IV Q30MIN PRN Hypoglycemia Protocol Folic Acid 1 mg 07/13/20 10:00 07/14/20 09:15 Folic Acid 1 Mg Tab PO 1 mg QDAY [facility] Administration Furosemide 40 mg 07/14/20 10:20 Furosemide 40 Mg/4 Ml Inj IV QDAY [facility] Hydralazine HCl 10 mg 07/13/20 12:21 Hydralazine 20 Mg/1 Ml Inj IV Q4HR PRN HTN SYS>160 OR MANDIE>105 Insulin Human Lispro 0 unit 07/13/20 07:30 07/14/20 21:00 Insulin Lispro 100 Unit/Ml SUB-Q Not Given ACHS [facility] Protocol Lisinopril 20 mg 07/13/20 10:00 07/14/20 10:33 Lisinopril 20 Mg Tab PO Not Given QDAY [facility] Magnesium Hydroxide 30 ml 07/13/20 00:18 Magnesium Hydroxide (Mom) Oral Liqd Udc PO Q4H PRN Constipation Morphine Sulfate 2 mg 07/13/20 00:18 Morphine 2 Mg/1 Ml Inj IV Q5MIN PRN Chest Pain unrelieved by NTG Nitroglycerin 0.4 mg 07/13/20 00:18 Nitroglycerin 0.4 Mg Tab Subl SL Q5M PRN Chest Pain Ondansetron HCl 4 mg 07/13/20 00:18 Ondansetron 4 Mg/2 Ml Inj IV Q8H PRN Nausea And Vomiting Sodium Chloride 10 ml 07/13/20 10:00 07/14/20 21:00 Sodium Chloride 0.9% 10 Ml Flush Syringe IV Not Given BID [facility] Sodium Chloride 10 ml 07/13/20 00:18 07/13/20 06:41 Sodium Chloride 0.9% 10 Ml Flush Syringe IV 10 ml PRN PRN Administration LINE FLUSH Spironolactone 25 mg 07/15/20 10:00 Spironolactone 25 Mg Tab PO QDAY CONSUELO Nutrition/Malnutrition Assess - Dietary Evaluation Nutrition/Malnutrition Findings: Nutrition Notes Start: 07/13/20 11:38 Freq: Status: Active Protocol: Document 07/13/20 11:38 AB (Rec: 07/13/20 12:00 AB [id number]) Co-Sign 07/13/20 11:38 LP Nutrition Notes 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 Spoke with pt on the phone and his appetite is good. Pt is very hungry and would like his diet changed TINY. Pt reports a difficulty chewing d/t not having teeth. Pt states a wt loss of 5 lbs in 2 weeks from being ill. Pt denies having EN . Tj Score of 20. Talked with RN on diet changes and she is getting ahold of MD. Percent of energy/protein needs met: 0%/0% Burn Absent Trauma Absent GI Symptoms None Difficulty In Chewing Food Allergy No Current % PO Negligible Minimum of two criteria No Fluid Accumulation Moderate to Severe (severe) #1 Nutrition Diagnosis No nutrition diagnosis at this time Is patient on ventilator? No Is Patient Ambulatory and/or Out of Bed No REE-([place]-[facility] Jeor-confined to bed) [phone] [facility]culation [facility] Additional Notes Protein: 51-64 g (.8-1 g/kg) Fluid: 1 ml/kcal or per MD Nutrition Intervention Change Diet Order: Diet advancement when medically feasible Goal #1 Diet advancement Anticipated Discharge Needs: Cardiac Follow-Up By: 07/16/20 Additional Comments F/U for diet advancement, intakes
[2020-07-15] MEDS: INSULIN LISPRO 100 UNIT/ML SUB-Q SCH ×4 (10:11→22:17)
[2020-07-15] MEDS: ASPIRIN EC 325 MG TAB PO SCH (10:11)
[2020-07-15] MEDS: LISINOPRIL 20 MG TAB PO SCH (10:12)
[2020-07-15] MEDS: FOLIC ACID 1 MG TAB PO SCH (10:12)
[2020-07-15] MEDS: SPIRONOLACTONE 25 MG TAB PO SCH (10:12)
[2020-07-15] MEDS: FUROSEMIDE 40 MG/4 ML INJ IV SCH (10:12)
[2020-07-15] MEDS: carvediloL 3.125 MG TAB PO SCH ×2 (10:12→17:26)
[2020-07-15] MEDS: amLODIPine 10 MG TAB PO SCH (10:12)
[2020-07-15] MEDS: BUDESONIDE 0.5 MG/2 ML NEBU IH SCH ×2 (12:21→20:57)
[2020-07-15] MEDS: ARFORMOTEROL 15 MCG/2 ML NEBU IH SCH ×2 (12:22→20:57)
--- NOTE | 2020-07-15 15:11 | Progress Note ---
Assessment and Plan Atypical chest pain: Negative MPI Cor pulmonale Tobacco use H/O alcohol abuse Recommend: Continue current therapy Tobacco/alcohol cessation Subjective Date of service: 07/15/20 Interval history: NO acute events Objective Vital Signs Temp Pulse Resp BP Pulse Ox 07/15/20 11:21 97.9 F 91 H 18 133/103 95 07/15/20 10:00 85 07/15/20 07:26 97.5 F L 85 18 101/71 98 07/15/20 03:33 97.8 F 101 H 18 118/84 93 07/14/20 22:00 103 H 07/14/20 17:22 86 93/69 07/14/20 16:05 98.2 F 86 18 93/69 90 - Physical Examination HEENT: Positive: PERRL Neck: Positive: neck supple Cardiac: Positive: Reg Rate and Rhythm Lungs: Positive: Decreased Breath Sounds Neuro: Positive: Grossly Intact Abdomen: Positive: Soft Skin: Positive: Clear Extremities: Absent: edema - Labs and Meds Cardiac Enzymes 07/15/20 Range/Units 07:16 AST 35 (5-40) units/L CBC 07/15/20 Range/Units 07:16 WBC 3.9 L (4.5-11.0) K/mm3 RBC 4.13 (3.65-5.03) M/mm3 Hgb 13.6 (11.8-15.2) gm/dl Hct 39.4 (35.5-45.6) % Plt Count 187 (140-440) K/mm3 Comprehensive Metabolic Panel 07/15/20 Range/Units 07:16 Sodium 130 L (137-145) mmol/L Potassium 3.8 (3.6-5.0) mmol/L Chloride 96.8 L (98-107) mmol/L Carbon Dioxide 29 (22-30) mmol/L BUN 15 (9-20) mg/dL Creatinine 0.6 L (0.8-1.3) mg/dL Glucose 99 (75-100) mg/dL Calcium 8.2 L (8.4-10.2) mg/dL AST 35 (5-40) units/L ALT 15 (7-56) units/L Alkaline Phosphatase 102 (35-129) units/L Total Protein 7.8 (6.3-8.2) g/dL Albumin 3.1 L (3.9-5) g/dL
[2020-07-16 05:49] LABS: Hemoglobin 13.1 gm/dl (11.8-15.2)
[2020-07-16] MEDS: INSULIN LISPRO 100 UNIT/ML SUB-Q SCH ×4 (08:35→22:17)
[2020-07-16] MEDS: carvediloL 3.125 MG TAB PO SCH ×2 (08:38→18:56)
[2020-07-16] MEDS: ARFORMOTEROL 15 MCG/2 ML NEBU IH SCH ×2 (08:44→20:20)
[2020-07-16] MEDS: BUDESONIDE 0.5 MG/2 ML NEBU IH SCH ×2 (08:45→20:20)
[2020-07-16] MEDS: LISINOPRIL 20 MG TAB PO SCH (09:38)
[2020-07-16] MEDS: amLODIPine 10 MG TAB PO SCH (09:38)
[2020-07-16] MEDS: SPIRONOLACTONE 25 MG TAB PO SCH ×2 (09:38→10:27)
--- NOTE | 2020-07-16 10:16 | Progress Note ---
Assessment and Plan Assessment and plan: 50-year-old male with known history of CHF, hypertension, COPD presenting to the emergency room today complaining of chest pain and shortness of breath. He has also been having some lower extremity swelling and abdominal swelling over the past 2 weeks. Patient indicates that he has been out of his medication for some time. Chest pain is about 4/10 in severity. Pain is substernal and worse on exertion. He has had associated shortness of breath. He denies any fever or chills, no nausea vomiting, no headache or dizziness, no diaphoresis. Patient denies any recent travel and no sick contacts. Denies any contact with anyone with COVID-19. Upon arrival in the emergency room patient was tachycardic and hypoxic. Work-up in the emergency room today reveals elevated BNP, CT angiogram of the chest reveals:1. No evidence of acute PTE. 2. Mild congestive heart failure superimposed on emphysema. 3. Small to moderate pericardial effusion and small pleural effusion. Upper abdominal ascites. Labs reveals elevated troponin. Patient is admitted with CHF exacerbation, non-ST elevation LA. 07/13: Patient seen and examined, reports improvement, Stress test report pending, outpatient pulmonary follow up, Anticipate discharge in am if improved. 07/14: Follow discussion with the patient we will resulted the patient does drink 6 packs of beer daily states he quit 2 months ago since he has been here no evidence of withdrawal noted. His abdomen is still protuberant and edematous with 2+ pitting edema bilateral lower extremity. Nevertheless he does have significant hypotension resulting in decrease of Lasix to daily. We will also obtain an abdominal ultrasound he did have an episode of shortness of breath last night and is on 2 L of oxygen right now will reevaluate with possible underlying cor pulmonale with congestive heart failure and probably COPD exacerbation. He also stated that he is not that much mobile at home. Will obtain physical therapy evaluation. We will watch 24 to 48 hours more. 07/15: Report of abdominal ultrasound:IMPRESSION: 1. Hepatomegaly. The hepatic parenchyma is diffusely heterogeneous indicative of hepatocellular disease.. 2. Abnormal appearance of the gallbladder. There is marked diffuse gallbladder wall thickening with single gallstone present. The appearance of the gallbladder is more suggestive of gallbladder wall thickening that is seen with severe hepatocellular disease rather than acute cholecystitis. However, clinical correlation is recommended. 3. Small to moderate amount of ascites noted within the abdomen. I have discussed this findings with the patient likely indicative of history of severe alcohol use. We will check an AFP for baseline. I have added spironolactone to the patient. While he has small to moderate ascites does not appear large enough to tap at this time. He understands that he may need paracentesis sometime in the future. I also discussed fluid restrictions to 1.2 L daily. He verbalized understanding. We will diurese for 1 more day and discharge in a.m.. Will perform a home O2 evaluation prior to discharge. 07/16: 50-year-old male admitted with chest pain or shortness of breath with presumably non-ST elevated LA stress test was negative. Ultrasound showed marked cirrhosis and mild to moderate ascites. Per cardiology patient also has underlying COPD CHF and hypertension and cor pulmonale. 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 Considering patient's severe hypoxia will obtain preschool assistant teacher to evaluate due to also underlying cor pulmonale. We will also obtain paracentesis diagnostic and therapeutic. Of advised the patient on the need to wear his oxygen. He has not been using the CPAP at night he states that this is because nobody places it on discussed with the nursing staff and will also discussed with the therapist also advised nursing to ensure compliance with this. His blood pressure precludes use of some of his medications have discontinued the amlodipine. He will get the spironolactone today we will monitor electrolytes. Likely can be discharged in the next 24 hours will likely need oxygen for discharge. We will also obtain an ABG (1) Acute exacerbation of CHF (congestive heart failure) Current Visit: Yes Status: Acute Qualifiers: Heart failure type: unspecified Qualified Code(s): I50.9 - Heart failure, unspecified Plan to address problem: Patient admitted and placed on telemetry. He has been started on diuretics. Will monitor inputs and outputs and also monitor daily weight. Echo done in 01/26/2020 reveals ejection fraction of 45 to 50%. We will await evaluation by cardiology. (2) NSTEMI (non-ST elevated myocardial infarction) Current Visit: Yes Status: Acute Plan to address problem: We will check serial cardiac enzymes. Patient has been started on aspirin, sublingual nitroglycerin and IV morphine as needed for chest pain. He has also been placed on heparin drip. We will await further evaluation by cardiology. (3) COPD (chronic obstructive pulmonary disease) Current Visit: No Status: Acute Plan to address problem: She will be placed on nebulizing treatments as needed. (4) hepatocellular disease (5) Mild hyponatremia (6) Mild to moderate ascites (7) DVT prophylaxis Current Visit: No Status: Acute Plan to address problem: Patient currently on anticoagulation with heparin. (8) Full code status Current Visit: No Status: Acute Plan to address problem: Patient is a full code. History Interval history: Patient seen and examined, unfortunately patient has not been compliant with the nursing staff has not been compliant with his oxygen. I expressed his clinical condition to him and the nurse has also. His saturation this morning off oxygen was 75% and on 3 and half liters was 90%. Hospitalist Physical - Physical exam Narrative exam: General appearance: Present: no acute distress, well-nourished chronic skin changes. - EENT Eyes: Present: PERRL, EOM intact. Absent: scleral icterus ENT: hearing intact, clear oral mucosa, dentition normal - Neck Neck: Present: supple, normal ROM - Respiratory Respiratory effort: normal Respiratory: bilateral: rales - Cardiovascular Rhythm: regular Heart Sounds: Present: S1 & S2. Absent: gallop, systolic murmur, diastolic murmur, rub, click - Extremities Extremities: no ischemia, pulses intact, pulses symmetrical, No edema, normal temperature, normal color, Full ROM Extremity abnormal: clubbing (Bilateral finger clubbing) Peripheral Pulses: within normal limits - Abdominal General gastrointestinal: Present: soft, non-tender, distended abdomen edematous, normal bowel sounds. Absent: mass - Integumentary Integumentary: Present: Bilateral lower extremity edema +2 - Musculoskeletal Musculoskeletal: strength equal bilaterally - Psychiatric Psychiatric: appropriate mood/affect, intact judgment & insight, memory intact, cooperative - Neurologic Neurologic: CNII-XII intact, no focal deficits, moves all extremities - Constitutional Vitals: Temp Pulse Resp BP Pulse Ox 98.4 F 90 16 97/77 100 07/16/20 08:13 07/16/20 08:45 07/16/20 08:45 07/16/20 08:38 07/16/20 08:46 General appearance: Present: no acute distress, well-nourished HEART Score - HEART Score EKG: Non-specific Age: 45-65 Risk factors: 1-2 risk factors Troponin: Troponin T 0.044 ng/mL (0.00-0.029) H 07/13/20 05:56 Troponin: 1-3x normal limit Results - Labs CBC & Chem 7: 07/16/20 05:09 07/15/20 07:16 Labs: Laboratory Last Values WBC 3.9 K/mm3 (4.5-11.0) L 07/15/20 07:16 RBC 4.13 M/mm3 (3.65-5.03) 07/15/20 07:16 Hgb 13.1 gm/dl (11.8-15.2) 07/16/20 05:09 Hct 38.0 % (35.5-45.6) 07/16/20 05:09 MCV 96 fl (84-94) H 07/15/20 07:16 MCH 33 pg (28-32) H 07/15/20 07:16 MCHC 35 % (32-34) H 07/15/20 07:16 RDW 18.5 % (13.2-15.2) H 07/15/20 07:16 Plt Count 182 K/mm3 (140-440) 07/16/20 05:09 Lymph % (Auto) 21.8 % (13.4-35.0) 07/14/20 06:18 [place] % (Auto) 14.5 % (0.0-7.3) H 07/14/20 06:18 Eos % (Auto) 1.2 % (0.0-4.3) 07/14/20 06:18 Baso % (Auto) 0.8 % (0.0-1.8) 07/14/20 06:18 Lymph # (Auto) 1.2 K/mm3 (1.2-5.4) 07/14/20 06:18 [place] # (Auto) 0.8 K/mm3 (0.0-0.8) 07/14/20 06:18 Eos # (Auto) 0.1 K/mm3 (0.0-0.4) 07/14/20 06:18 Baso # (Auto) 0.0 K/mm3 (0.0-0.1) 07/14/20 06:18 Seg Neutrophils % 61.7 % (40.0-70.0) 07/14/20 06:18 Seg Neutrophils # 3.5 K/mm3 (1.8-7.7) 07/14/20 06:18 PT 16.8 Sec. (12.2-14.9) H 07/14/20 06:18 INR 1.36 (0.87-1.13) H 07/14/20 06:18 APTT 30.7 Sec. (24.2-36.6) 07/12/20 21:20 Heparin Anti-Xa Level 0.38 U.I./ml (0.3-0.7) 07/13/20 15:30 Sodium 130 mmol/L (137-145) L 07/15/20 07:16 Potassium 3.8 mmol/L (3.6-5.0) 07/15/20 07:16 Chloride 96.8 mmol/L (98-107) L 07/15/20 07:16 Carbon Dioxide 29 mmol/L (22-30) 07/15/20 07:16 Anion Gap 8 mmol/L 07/15/20 07:16 BUN 15 mg/dL (9-20) 07/15/20 07:16 Creatinine 0.6 mg/dL (0.8-1.3) L 07/15/20 07:16 Estimated GFR > 60 ml/min 07/15/20 07:16 BUN/Creatinine Ratio 25 % 07/15/20 07:16 Glucose 99 mg/dL (75-100) 07/15/20 07:16 POC Glucose 89 mg/dL (70-105) 07/16/20 08:11 Calcium 8.2 mg/dL (8.4-10.2) L 07/15/20 07:16 Total Bilirubin 1.30 mg/dL (0.1-1.2) H 07/15/20 07:16 AST 35 units/L (5-40) 07/15/20 07:16 ALT 15 units/L (7-56) 07/15/20 07:16 Alkaline Phosphatase 102 units/L (35-129) 07/15/20 07:16 Troponin T 0.044 ng/mL (0.00-0.029) H 07/13/20 05:56 NT-Pro-B Natriuret Pep 7185 pg/mL (0-900) H 07/12/20 21:20 Total Protein 7.8 g/dL (6.3-8.2) 07/15/20 07:16 Albumin 3.1 g/dL (3.9-5) L 07/15/20 07:16 Albumin/Globulin Ratio 0.7 % 07/15/20 07:16 Triglycerides 73 mg/dL (2-149) 07/12/20 21:20 Cholesterol 88 mg/dL (50-199) 07/12/20 21:20 LDL Cholesterol Direct 46 mg/dL (50-130) L 07/12/20 21:20 HDL Cholesterol 35 mg/dL (40-59) L 07/12/20 21:20 Cholesterol/HDL Ratio 2.51 % 07/12/20 21:20 Urine Color [place]arl[place] (Yellow) 07/12/20 22:50 Urine Turbidity Slightly-cloudy (Clear) 07/12/20 22:50 Urine pH 5.0 (5.0-7.0) 07/12/20 22:50 Ur Specific [place] 1.033 (1.003-1.030) H 07/12/20 22:50 Urine Protein >500 mg/dL (Negative) 07/12/20 22:50 Urine Glucose (UA) 50 mg/dL (Negative) 07/12/20 22:50 Urine Ketones Neg mg/dL (Negative) 07/12/20 22:50 Urine Blood Neg (Negative) 07/12/20 22:50 Urine Nitrite Neg (Negative) 07/12/20 22:50 Urine Bilirubin Sm (Negative) 07/12/20 22:50 Urine Ictotest Positive (Negative) 07/12/20 22:50 Urine Urobilinogen 4.0 mg/dL (<2.0) 07/12/20 22:50 Ur Leukocyte Esterase Neg (Negative) 07/12/20 22:50 Urine WBC (Auto) 14.0 /HPF (0.0-6.0) H 07/12/20 22:50 Urine RBC (Auto) 3.0 /HPF (0.0-6.0) 07/12/20 22:50 U Epithel Cells (Auto) < 1.0 /HPF (0-13.0) 07/12/20 22:50 Urine Mucus 3+ /HPF 07/12/20 22:50 Coronavirus (PCR) Negative (Negative) 07/14/20 09:20 Microbiology: Microbiology 07/12/20 22:50 Urine,Clean Catch Urine Culture - Preliminary NO GROWTH AFTER 24 HOURS Carpio/IV: Voiding Method Urinal IV Catheter Type [Right INT / Saline Lock Forearm] Active Medications - Current Medications Current Medications: Generic Name Dose Route Start Last Admin Trade Name Freq PRN Reason Stop Dose Admin Acetaminophen 650 mg 07/13/20 00:18 Acetaminophen 325 Mg Tab PO Q4H PRN Pain MILD(1-3)/Fever >100.5/CRAIG Albuterol 2.5 mg 07/13/20 00:18 Albuterol 2.5 Mg/3 Ml Nebu IH Q4HRT PRN Shortness Of Breath Arformoterol Tartrate 15 mcg 07/13/20 09:00 07/16/20 08:44 Arformoterol 15 Mcg/2 Ml Nebu IH 15 mcg Q12HRT CONSUELO Administration Aspirin 325 mg 07/14/20 10:00 07/15/20 10:11 Aspirin Ec 325 Mg Tab PO 325 mg QDAY CONSUELO Administration Budesonide 0.5 mg 07/13/20 09:00 07/16/20 08:45 Budesonide 0.5 Mg/2 Ml Nebu IH 0.5 mg Q12HRT CONSUELO Administration Carvedilol 3.125 mg 07/13/20 08:00 07/16/20 08:38 Carvedilol 3.125 Mg Tab PO 3.125 mg BID@0800,1700 CONSUELO Administration Dextrose 0 ml 07/13/20 00:18 Dextrose 50% In Water (25gm) 50 Ml Syringe IV Q30MIN PRN Hypoglycemia Protocol Folic Acid 1 mg 07/13/20 10:00 07/15/20 10:12 Folic Acid 1 Mg Tab PO 1 mg QDAY CONSUELO Administration Furosemide 40 mg 07/14/20 10:20 07/15/20 10:12 Furosemide 40 Mg/4 Ml Inj IV 40 mg QDAY CONSUELO Administration Hydralazine HCl 10 mg 07/13/20 12:21 Hydralazine 20 Mg/1 Ml Inj IV Q4HR PRN HTN SYS>160 OR MANDIE>105 Insulin Human Lispro 0 unit 07/13/20 07:30 07/16/20 08:35 Insulin Lispro 100 Unit/Ml SUB-Q Not Given ACHS [facility] Protocol Lisinopril 20 mg 07/13/20 10:00 07/16/20 09:38 Lisinopril 20 Mg Tab PO Not Given QDAY CONSUELO Magnesium Hydroxide 30 ml 07/13/20 00:18 Magnesium Hydroxide (Mom) Oral Liqd Udc PO Q4H PRN Constipation Morphine Sulfate 2 mg 07/13/20 00:18 Morphine 2 Mg/1 Ml Inj IV Q5MIN PRN Chest Pain unrelieved by NTG Nitroglycerin 0.4 mg 07/13/20 00:18 Nitroglycerin 0.4 Mg Tab Subl SL Q5M PRN Chest Pain Ondansetron HCl 4 mg 07/13/20 00:18 Ondansetron 4 Mg/2 Ml Inj IV Q8H PRN Nausea And Vomiting Sodium Chloride 10 ml 07/13/20 10:00 07/15/20 10:12 Sodium Chloride 0.9% 10 Ml Flush Syringe IV 10 ml BID CONSUELO Administration Sodium Chloride 10 ml 07/13/20 00:18 07/13/20 06:41 Sodium Chloride 0.9% 10 Ml Flush Syringe IV 10 ml PRN PRN Administration LINE FLUSH Spironolactone 25 mg 07/15/20 10:00 07/16/20 09:38 Spironolactone 25 Mg Tab PO Not Given QDAY CONSUELO Nutrition/Malnutrition Assess - Dietary Evaluation Nutrition/Malnutrition Findings: Nutrition Notes Start: 07/13/20 11:38 Freq: Status: Active Protocol: Document 07/13/20 11:38 AB (Rec: 07/13/20 12:00 AB [id number]) Co-Sign 07/13/20 11:38 LP Nutrition Notes Need for Assessment generated from: hired help Initial or Follow up Assessment Current Diagnosis COPD,Heart Failure,Respiratory Failure Other Pertinent Diagnosis anasarca, hypoxia, NSTEMI Current Diet NPO Labs/Tests 07/12 Na 133 Cr 0.5 Pertinent Medications Lasix Height 5 ft 9 in Weight 63.5 kg Usual Body Weight 70 kg [place] Body Weight (kg) 72.72 BMI 20.7 Weight change and time frame 3% wt loss in 2 weeks Weight Status Appropriate Subjective/Other Information 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 Spoke with pt on the phone and his appetite is good. Pt is very hungry and would like his diet changed TINY. Pt reports a difficulty chewing d/t not having teeth. Pt states a wt loss of 5 lbs in 2 weeks from being ill. Pt denies having EN . Tj Score of 20. Talked with RN on diet changes and she is getting ahold of MD. Percent of energy/protein needs met: 0%/0% Burn Absent Trauma Absent GI Symptoms None Difficulty In Chewing Food Allergy No Current % PO Negligible Minimum of two criteria No Fluid Accumulation Moderate to Severe (severe) #1 Nutrition Diagnosis No nutrition diagnosis at this time Is patient on ventilator? No Is Patient Ambulatory and/or Out of Bed No REE-([place]-[facility] Jeor-confined to bed) [phone] Calculation [facility]ations [facility] Additional Notes Protein: 51-64 g (.8-1 g/kg) Fluid: 1 ml/kcal or per MD Nutrition Intervention Change Diet Order: Diet advancement when medically feasible Goal #1 Diet advancement Anticipated Discharge Needs: Cardiac Follow-Up By: 07/16/20 Additional Comments F/U for diet advancement, intakes
[2020-07-16] MEDS: ASPIRIN EC 325 MG TAB PO SCH (10:26)
[2020-07-16] MEDS: FOLIC ACID 1 MG TAB PO SCH (10:27)
[2020-07-16] MEDS: FUROSEMIDE 40 MG/4 ML INJ IV SCH (10:27)
--- NOTE | 2020-07-16 11:16 | Progress Note ---
Assessment and Plan - Patient Problems (1) Chest pain Current Visit: Yes Status: Acute Qualifiers: Chest pain type: unspecified Qualified Code(s): R07.9 - Chest pain, unspecified Plan to address problem: Chest pain was atypical, ECG and cardiac enzyme levels were negative. A Lexiscan thallium stress test was normal. (2) Cor pulmonale Current Visit: Yes Status: Acute Plan to address problem: Patient has a history of chronic lung disease, with cor pulmonale reported on prior echocardiograms. He needs pulmonary evaluation for further management of his chronic lung disease. Subjective Date of service: 07/16/20 Interval history: Patient is comfortable, no cardiac complaints. Objective Vital Signs Temp Pulse Pulse Resp Resp BP Pulse Ox 07/16/20 10:27 63 107/76 07/16/20 08:46 100 07/16/20 08:45 90 16 07/16/20 08:38 99 H 97/77 07/16/20 08:13 98.4 F 99 H 18 97/77 100 07/16/20 04:15 97.4 F L 61 18 114/71 98 07/15/20 20:59 91 H 18 07/15/20 20:08 97.5 F L 89 17 106/75 94 07/15/20 17:06 97.9 F 101 H 18 126/94 99 07/15/20 15:05 90 20 07/15/20 11:21 97.9 F 91 H 18 133/103 95 - Physical Examination General: No Apparent Distress HEENT: Positive: PERRL Neck: Positive: neck supple Cardiac: Positive: Reg Rate and Rhythm Lungs: Positive: Decreased Breath Sounds Neuro: Positive: Grossly Intact Abdomen: Positive: Soft Skin: Positive: Clear Extremities: Absent: edema - Labs and Meds CBC 07/16/20 Range/Units 05:09 Hgb 13.1 (11.8-15.2) gm/dl Hct 38.0 (35.5-45.6) % Plt Count 182 (140-440) K/mm3
--- NOTE | 2020-07-16 11:59 | Procedure Note ---
Date of procedure: 07/16/20 Pre-op diagnosis: ascites Post-op diagnosis: same Procedure: US paracentesis Findings: moderate ascites Anesthesia: local Surgeon: GEOVANNY TEE Estimated blood loss: none Pathology: list (120cc) Specimen disposition: to lab Condition: stable Disposition: floor
--- NOTE | 2020-07-16 11:59 | Ultrasound Report ---
ULTRASOUND-GUIDED PARACENTESIS HISTORY: diagnostic and therapeutic drainage. PROCEDURE: The risks (including but not limited to bleeding, infection, and bowel injury) and benefi ts were explained to the patient and informed consent was obtained. A time out procedure was perform ed. Ultrasound was used to evaluate the abdomen and locate the largest ascites fluid pocket. Once the sk in was marked, the procedure site was prepped and draped in the usual sterile fashion and lidocaine w as used for local anesthesia. A skin lissette was made and a 5 [place] centesis catheter was placed. The patient was monitored closely throughout the procedure, and a total of 1700 mL of clear yellow fluid was aspirated. Samples were sent to the lab for further evaluation per the primary clinicians order s. The patient tolerated the procedure well with no complications. IMPRESSION: Successful ultrasound-guided paracentesis as described. Signer Name: Pelon Hardin Jr, MD Signed: 07/16/2020 11:55 AM Workstation Name: [id number]
--- NOTE | 2020-07-16 14:17 | Consultation ---
History of Present Illness Consult date: 07/16/20 Reason for consult: dyspnea, chest pain, COPD, hypoxemia, pleural effusion History of present illness: 50-year-old male with known history of CHF, hypertension, COPD presenting to the emergency room today complaining of chest pain and shortness of breath. He has also been having some lower extremity swelling and abdominal swelling over the past 2 weeks. Patient indicates that he has been out of his medication for some time. Chest pain is about 4/10 in severity. Pain is substernal and worse on exertion. He has had associated shortness of breath. He denies any fever or chills, no nausea vomiting, no headache or dizziness, no diaphoresis. Patient denies any recent travel and no sick contacts. Denies any contact with anyone with COVID-19. Patient has history of smoking. According to the chart patient is current daily smoker. Uses marijuana. Alcohol history not known at this time. Patient has no known drug allergies. Upon arrival in the emergency room patient was tachycardic and hypoxic. Work-up in the emergency room today reveals elevated BNP, CT angiogram of the chest reveals:1. No evidence of acute PTE. 2. Mild congestive heart failure superimposed on emphysema. 3. Small to moderate pericardial effusion and small pleural effusion. Upper abdominal ascites. Labs reveals elevated troponin. Patient is admitted with CHF exacerbation, non-ST elevation AR. Patient sleeping at this time. Not responding to verbal stimuli. Sleeping on 4 litres O2. O2 saturation running 100%. No acute respiratory distress. Patient afebrile. No leukocytosis. Patient undergone abdominal paracentesis to day. Paracentesis cell count WBC 85, RBC 4150. Paracentesis fluid chemistry and other results pending. Past History Past Medical History: COPD, heart failure, hypertension, other (Herpes 1) Past Surgical History: Other (Left leg surgery in the past) Social history: smoking (Current daily smoker), other (Uses marijuana) Family history: no significant family history Medications and Allergies Allergies Allergy/AdvReac Type Severity Reaction Status Date / Time No Known Allergies Allergy Verified 11/16/19 18:32 Home Medications Medication Instructions Recorded Confirmed Last Taken Type Albuterol Mdi (or & Nicu Only) 2 puff IH QID PRN #8.5 gram 01/18/20 Unknown Rx [ProAir HFA Inhaler] lisinopriL [Zestril TAB] 20 mg PO QDAY #60 tablet 01/18/20 Unknown Rx Budesonide/Formoterol Fumarate 10.2 gm IH BID #1 hfa.aer.[email or web address] 07/15/20 Unknown Rx [Symbicort 80-4.5 Mcg Inhaler] Folic Acid [Folvite] 1 mg PO QDAY #60 tablet 07/15/20 Unknown Rx Furosemide [Lasix TAB] 40 mg PO QDAY #60 tablet 07/15/20 Unknown Rx Spironolactone [Aldactone] 25 mg PO QDAY #30 tablet 07/15/20 Unknown Rx amLODIPine 10 mg PO QDAY #60 tablet 07/15/20 Unknown Rx carvediloL [Coreg] 3.125 mg PO BID #120 tablet 07/15/20 Unknown Rx predniSONE [Deltasone] 40 mg PO QDAY #10 tablet 07/15/20 Unknown Rx Active Meds: Active Medications Acetaminophen (Acetaminophen 325 Mg Tab) 650 mg PO Q4H PRN PRN Reason: Pain MILD(1-3)/Fever >100.5/CRAIG Albuterol (Albuterol 2.5 Mg/3 Ml Nebu) 2.5 mg IH Q4HRT PRN PRN Reason: Shortness Of Breath Arformoterol Tartrate (Arformoterol 15 Mcg/2 Ml Nebu) 15 mcg IH Q12HRT [facility] Last Admin: 07/16/20 08:44 Dose: 15 mcg Documented by: Aspirin (Aspirin Ec 325 Mg Tab) 325 mg PO QDAY [facility] Last Admin: 07/16/20 10:26 Dose: 325 mg Documented by: Budesonide (Budesonide 0.5 Mg/2 Ml Nebu) 0.5 mg IH Q12HRT [facility] Last Admin: 07/16/20 08:45 Dose: 0.5 mg Documented by: Carvedilol (Carvedilol 3.125 Mg Tab) 3.125 mg PO BID@0800,1700 [facility] Last Admin: 07/16/20 08:38 Dose: 3.125 mg Documented by: Dextrose (Dextrose 50% In Water (25gm) 50 Ml Syringe) 0 ml IV Q30MIN PRN; Protocol PRN Reason: Hypoglycemia Folic Acid (Folic Acid 1 Mg Tab) 1 mg PO QDAY [facility] Last Admin: 07/16/20 10:27 Dose: 1 mg Documented by: Furosemide (Furosemide 40 Mg/4 Ml Inj) 40 mg IV QDAY [facility] Last Admin: 07/16/20 10:27 Dose: 40 mg Documented by: Hydralazine HCl (Hydralazine 20 Mg/1 Ml Inj) 10 mg IV Q4HR PRN PRN Reason: HTN SYS>160 OR MANDIE>105 Insulin Human Lispro (Insulin Lispro 100 Unit/Ml) 0 unit SUB-Q ACHS [facility]; Protocol Last Admin: 07/16/20 08:35 Dose: Not Given Documented by: Lisinopril (Lisinopril 20 Mg Tab) 20 mg PO QDAY [facility] Last Admin: 07/16/20 09:38 Dose: Not Given Documented by: Magnesium Hydroxide (Magnesium Hydroxide (Mom) Oral Liqd Udc) 30 ml PO Q4H PRN PRN Reason: Constipation Morphine Sulfate (Morphine 2 Mg/1 Ml Inj) 2 mg IV Q5MIN PRN PRN Reason: Chest Pain unrelieved by NTG Nitroglycerin (Nitroglycerin 0.4 Mg Tab Subl) 0.4 mg SL Q5M PRN PRN Reason: Chest Pain Ondansetron HCl (Ondansetron 4 Mg/2 Ml Inj) 4 mg IV Q8H PRN PRN Reason: Nausea And Vomiting Sodium Chloride (Sodium Chloride 0.9% 10 Ml Flush Syringe) 10 ml IV BID [facility] Last Admin: 07/15/20 10:12 Dose: 10 ml Documented by: Sodium Chloride (Sodium Chloride 0.9% 10 Ml Flush Syringe) 10 ml IV PRN PRN PRN Reason: LINE FLUSH Last Admin: 07/13/20 06:41 Dose: 10 ml Documented by: Spironolactone (Spironolactone 25 Mg Tab) 25 mg PO QDAY [facility] Last Admin: 07/16/20 10:27 Dose: 25 mg Documented by: Review of Systems All systems: negative Physical Examination Vital signs: Vital Signs Temp Pulse Resp BP Pulse Ox 97.0 F L 201 H 20 152/109 75 L 07/12/20 21:10 07/12/20 21:10 07/12/20 21:10 07/12/20 21:10 07/12/20 21:10 General appearance: no acute distress, asleep Eyes: non-icteric ENT: oropharynx moist Neck: supple, no JVD Effort: mildly labored Ascultation: Bilateral: diminished breath sounds (at the bases.) Cardiovascular: regular rate and rhythm Gastrointestinal: normoactive bowel sounds, other (Slightly distended) Integumentary: normal Extremities: no cyanosis, edema Musculoskeletal: no deformities Gait: other (Unable to assess now.) non-focal exam, pupils equal and round other (Unable to assess. Patient is in deep sleep.) Results - Laboratory Findings CBC and BMP: 07/16/20 05:09 07/15/20 07:16 ABG ABG pH 7.415 (7.320-7.450) 07/16/20 14:01 POC ABG pCO2 45.9 mmHg (32.0-48.0) 07/16/20 14:01 POC ABG pO2 89.2 mmHg (83-108) 07/16/20 14:01 POC ABG HCO3 28.8 07/16/20 14:01 PT/INR, D-dimer PT 16.8 Sec. (12.2-14.9) H 07/14/20 06:18 INR 1.36 (0.87-1.13) H 07/14/20 06:18 Abnormal lab findings: Abnormal Labs 07/12/20 07/12/20 07/12/20 21:20 21:20 21:20 WBC MCV 98 H MCH 33 H MCHC RDW 19.7 H Sunflower % (Auto) 14.4 H PT 16.8 H INR 1.36 H ABG Sodium ABG Chloride ABG Glucose Carboxyhemoglobin Sodium 133 L Potassium Chloride 97.6 L Creatinine 0.5 L Glucose POC Glucose Calcium Total Bilirubin AST 45 H Alkaline Phosphatase 133 H Troponin T 0.042 H NT-Pro-B Natriuret Pep Albumin 3.4 L LDL Cholesterol Direct 46 L HDL Cholesterol 35 L Arterial Blood Glucose Arterial Blood Ionized Calcium Ur Specific [place] Urine WBC (Auto) 07/12/20 07/12/20 07/13/20 21:20 22:50 05:56 WBC MCV MCH MCHC RDW Sunflower % (Auto) PT INR ABG Sodium ABG Chloride ABG Glucose Carboxyhemoglobin Sodium Potassium Chloride Creatinine Glucose POC Glucose Calcium Total Bilirubin AST Alkaline Phosphatase Troponin T 0.044 H NT-Pro-B Natriuret Pep 7185 H Albumin LDL Cholesterol Direct HDL Cholesterol Arterial Blood Glucose Arterial Blood Ionized Calcium Ur Specific [place] 1.033 H Urine WBC (Auto) 14.0 H 07/13/20 07/14/20 07/14/20 22:13 06:18 06:18 WBC MCV 96 H MCH MCHC RDW 18.9 H Sunflower % (Auto) 14.5 H PT 16.8 H INR 1.36 H ABG Sodium ABG Chloride ABG Glucose Carboxyhemoglobin Sodium Potassium Chloride Creatinine Glucose POC Glucose 138 H Calcium Total Bilirubin AST Alkaline Phosphatase Troponin T NT-Pro-B Natriuret Pep Albumin LDL Cholesterol Direct HDL Cholesterol Arterial Blood Glucose Arterial Blood Ionized Calcium Ur Specific [place] Urine WBC (Auto) 07/14/20 07/15/20 07/15/20 06:18 07:16 07:16 WBC 3.9 L MCV 96 H MCH 33 H MCHC 35 H RDW 18.5 H Sunflower % (Auto) PT INR ABG Sodium ABG Chloride ABG Glucose Carboxyhemoglobin Sodium 134 L 130 L Potassium 3.5 L Chloride 97.3 L 96.8 L Creatinine 0.6 L 0.6 L Glucose 104 H POC Glucose Calcium 8.2 L 8.2 L Total Bilirubin 1.30 H AST Alkaline Phosphatase Troponin T NT-Pro-B Natriuret Pep Albumin 3.1 L LDL Cholesterol Direct HDL Cholesterol Arterial Blood Glucose Arterial Blood Ionized Calcium Ur Specific [place] Urine WBC (Auto) 07/15/20 07/15/20 07/15/20 11:22 16:05 21:53 WBC MCV MCH MCHC RDW Sunflower % (Auto) PT INR ABG Sodium ABG Chloride ABG Glucose Carboxyhemoglobin Sodium Potassium Chloride Creatinine Glucose POC Glucose 107 H 126 H 108 H Calcium Total Bilirubin AST Alkaline Phosphatase Troponin T NT-Pro-B Natriuret Pep Albumin LDL Cholesterol Direct HDL Cholesterol Arterial Blood Glucose Arterial Blood Ionized Calcium Ur Specific [place] Urine WBC (Auto) 07/16/20 14:01 WBC MCV MCH MCHC RDW Sunflower % (Auto) PT INR ABG Sodium 132.0 L ABG Chloride 97.0 L ABG Glucose 140 H Carboxyhemoglobin 1.7 H Sodium Potassium Chloride Creatinine Glucose POC Glucose Calcium Total Bilirubin AST Alkaline Phosphatase Troponin T NT-Pro-B Natriuret Pep Albumin LDL Cholesterol Direct HDL Cholesterol Arterial Blood Glucose 140 H Arterial Blood Ionized Calcium 4.5 L Ur Specific [place] Urine WBC (Auto) - Diagnostic Findings Chest x-ray: report reviewed, image reviewed CT scan - chest: report reviewed, image reviewed Additional studies: CHEST 1 VIEW 07/12/20 INDICATION: cp. sob. COMPARISON: 01/16/2020 FINDINGS: Support devices: None. Heart: Stable cardiomegaly. Lungs/Pleura: The interstitium is prominent bilaterally suggesting interstitial edema. No consolidation, large pleural effusion or pneumothorax. Additional findings: None. IMPRESSION: Cardiomegaly and pulmonary interstitial edema. CT ANGIOGRAPHY OF THE CHEST WITH INTRAVENOUS CONTRAST AND MULTIPLANAR MIP RECONSTRUCTIONS 07/12/20 INDICATION / CLINICAL INFORMATION: Chest pain, shortness of breath and hypoxia. TECHNIQUE: Axial CT images were obtained after injection of 100 cc Omnipaque 350 IV contrast using CTA protocol. 3 plane MIP / 3D reconstructions were produced. All CT scans at this location are performed using CT dose reduction for ALARA by means of automated exposure control. COMPARISON: 01/16/20. FINDINGS: There is good opacification of the pulmonary arterial system bilaterally without intraluminal filling defect to suggest acute PTE. The thoracic aorta is normal in caliber without dissection. Mild coronary artery calcification is present. There are confluent changes of centrilobular emphysema. There is also substantial paraseptal emphysema, more prominent in the upper lung zones. Interstitial lung markings are diffusely increased. There is mild subsegmental atelectasis in the right lower lung. There is a small right pleural effusion. A mild to moderate pericardial effusion is present. There is moderate upper abdominal ascites. There is significant reflux of contrast into the IVC and hepatic veins. There is a tiny gallstone. No acute osseous abnormality is present. IMPRESSION: 1. No evidence of acute PTE. 2. Mild congestive heart failure superimposed on emphysema. 3. Small to moderate pericardial effusion and small pleural effusion. Upper abdominal ascites. Assessment and Plan 50-year-old male with known history of CHF, hypertension, COPD presenting to the emergency room today complaining of chest pain and shortness of breath. He has also been having some lower extremity swelling and abdominal swelling over the past 2 weeks. Patient indicates that he has been out of his medication for some time. Chest pain is about 4/10 in severity. Pain is substernal and worse on exertion. He has had associated shortness of breath. He denies any fever or chills, no nausea vomiting, no headache or dizziness, no diaphoresis. Patient denies any recent travel and no sick contacts. Denies any contact with anyone with COVID-19. Patient has history of smoking. According to the chart patient is current daily smoker. Uses marijuana. Alcohol history not known at this time. Patient has no known drug allergies. Upon arrival in the emergency room patient was tachycardic and hypoxic. Work-up in the emergency room today reveals elevated BNP, CT angiogram of the chest reveals:1. No evidence of acute PTE. 2. Mild congestive heart failure superimposed on emphysema. 3. Small to moderate pericardial effusion and small pleural effusion. Upper abdominal ascites. Labs reveals elevated troponin. Patient is admitted with CHF exacerbation, non-ST elevation AR. Patient sleeping at this time. Not responding to verbal stimuli. Sleeping on 4 litres O2. O2 saturation running 100%. No acute respiratory distress. Patient afebrile. No leukocytosis. Patient undergone abdominal paracentesis to day. Paracentesis cell count WBC 85, RBC 4150. Paracentesis fluid chemistry and other results pending. I spent critical care time of 50 minutes, reviewing the chart, examining the patient, review chest xray Cat scan, review lab results, talking to the respiratory therapy and nursing staff and work out plan of treatment in this critically ill patient. - Patient Problems (1) Acute exacerbation of CHF (congestive heart failure) Current Visit: Yes Status: Acute Qualifiers: Heart failure type: unspecified Qualified Code(s): I50.9 - Heart failure, unspecified Plan to address problem: Patient is on Lasix. Management as per cardiology. (2) Chest pain Current Visit: Yes Status: Acute Qualifiers: Chest pain type: unspecified Qualified Code(s): R07.9 - Chest pain, unspecified Plan to address problem: Management as per cardiology. (3) COPD (chronic obstructive pulmonary disease) Current Visit: No Status: Acute Plan to address problem: Brovanna/Budesonid aerosol treatments q 12 hours. Albuterol inhaler 2 puffs po q6 hours Prn for shortness of breath. Recommend DVT prophylaxis, Lovenox 40 mg S/C once a day. PFTs as out patient. (4) NSTEMI (non-ST elevated myocardial infarction) Current Visit: Yes Status: Acute Plan to address problem: Management as per cardiology. (5) Pulmonary edema cardiac cause Current Visit: Yes Status: Acute Plan to address problem: Patient is on lasix. Management as per cardiology. (6) Lupus Current Visit: No Status: Acute Plan to address problem: Management as per primary care. (7) Pulmonary hypertension Current Visit: No Status: Acute Plan to address problem: Continue O2 supplementation Continue pulmonary and cardiac treatments.
[2020-07-16 15:02] LABS: Total Cells Counted 100 /mm3
[2020-07-17] MEDS: ARFORMOTEROL 15 MCG/2 ML NEBU IH SCH ×2 (07:57→21:44)
[2020-07-17] MEDS: BUDESONIDE 0.5 MG/2 ML NEBU IH SCH ×2 (07:58→21:44)
[2020-07-17] MEDS: INSULIN LISPRO 100 UNIT/ML SUB-Q SCH ×2 (08:28→18:52)
--- NOTE | 2020-07-17 09:54 | Progress Note ---
Assessment and Plan Atypical chest pain: Negative MPI this admission Ascites s/p paracentesis Obstructive sleep apnea Cor pulmonale Tobacco use H/O alcohol abuse 01/2020 Echo: findings of cor pulmonale, with enlarged right heart chambers, tricuspid regurgitation and pulmonary hypertension. Well preserved left ventricular chamber size and systolic function ejection fraction reported at 45 to 50%. Recommend: Tobacco/alcohol cessation. Conservative cardiac management. Subjective Date of service: 07/17/20 Interval history: Patient is resting in bed and appears comfortable. No cardiac complaints. Objective Vital Signs Temp Pulse Pulse Resp Resp BP Pulse Ox 07/17/20 08:24 97.3 F L 90 18 97/71 95 07/17/20 08:07 94 07/17/20 07:58 90 16 07/17/20 03:59 97.5 F L 100 H 24 130/90 84 07/16/20 23:27 97.5 F L 91 H 20 114/84 100 07/16/20 23:09 91 H 16 97 07/16/20 22:02 97.6 F 07/16/20 22:00 20 92 07/16/20 20:27 100 07/16/20 20:21 88 16 07/16/20 19:34 122.0 F H 88 16 118/91 97 07/16/20 15:33 97.7 F 84 18 127/86 98 07/16/20 12:02 97.1 F L 22 113/84 07/16/20 10:27 63 107/76 07/16/20 10:00 63 24 92 - Physical Examination General: No Apparent Distress HEENT: Positive: PERRL Neck: Positive: neck supple Cardiac: Positive: Reg Rate and Rhythm Lungs: Positive: Decreased Breath Sounds Neuro: Positive: Grossly Intact Extremities: Absent: edema
[2020-07-17] MEDS: FOLIC ACID 1 MG TAB PO SCH (10:37)
[2020-07-17] MEDS: FUROSEMIDE 40 MG/4 ML INJ IV SCH (10:37)
[2020-07-17] MEDS: SPIRONOLACTONE 25 MG TAB PO SCH (10:37)
[2020-07-17] MEDS: carvediloL 3.125 MG TAB PO SCH ×2 (10:37→19:07)
[2020-07-17] MEDS: ASPIRIN EC 325 MG TAB PO SCH (10:37)
[2020-07-17] MEDS: LISINOPRIL 20 MG TAB PO SCH (10:38)
--- NOTE | 2020-07-17 10:48 | Progress Note ---
Assessment and Plan 50-year-old male with known history of CHF, hypertension, COPD presenting to the emergency room today complaining of chest pain and shortness of breath. He has also been having some lower extremity swelling and abdominal swelling over the past 2 weeks. Patient indicates that he has been out of his medication for some time. Chest pain is about 4/10 in severity. Pain is substernal and worse on exertion. He has had associated shortness of breath. He denies any fever or chills, no nausea vomiting, no headache or dizziness, no diaphoresis. Patient denies any recent travel and no sick contacts. Denies any contact with anyone with COVID-19. Patient has history of smoking. According to the chart patient is current daily smoker. Uses marijuana. Alcohol history not known at this time. Patient has no known drug allergies. Upon arrival in the emergency room patient was tachycardic and hypoxic. Work-up in the emergency room today reveals elevated BNP, CT angiogram of the chest reveals:1. No evidence of acute PTE. 2. Mild congestive heart failure superimposed on emphysema. 3. Small to moderate pericardial effusion and small pleural effusion. Upper abdominal ascites. Labs reveals elevated troponin. Patient is admitted with CHF exacerbation, non-ST elevation ID. Patient sleeping at this time. Not responding to verbal stimuli. Sleeping on 4 litres O2. O2 saturation running 100%. No acute respiratory distress. Patient afebrile. No leukocytosis. Patient undergone abdominal paracentesis to day. Paracentesis cell count WBC 85, RBC 4150. Paracentesis fluid chemistry and other results pending. 07/17/20 Patient alert, awake this morning. Resting in Bed. On 6 litres o2. O2 saturation 95%. Still complaining slight shortness of breath, dry cough and slight left sided chest pain. Patient not in acute respiratory distress. Patient said he used CPAP last night. Patient afebrile. No leukocytosis. Remaining paracentesis fluid results still pending. Patient has history of smoking. Counseled to stop smoking. He said he used to drink alcohol and used drugs in the past. He is not doing it now. Works in [employer]. No known drug allergies. and has no children. - Patient Problems (1) Acute exacerbation of CHF (congestive heart failure) Current Visit: Yes Status: Acute Qualifiers: Heart failure type: unspecified Qualified Code(s): I50.9 - Heart failure, unspecified Plan to address problem: Patient is on Lasix. Management as per cardiology. (2) Chest pain Current Visit: Yes Status: Acute Qualifiers: Chest pain type: unspecified Qualified Code(s): R07.9 - Chest pain, unspecified Plan to address problem: Management as per cardiology. (3) COPD (chronic obstructive pulmonary disease) Current Visit: No Status: Acute Plan to address problem: Brovanna/Budesonid aerosol treatments q 12 hours. Albuterol inhaler 2 puffs po q6 hours Prn for shortness of breath. Recommend DVT prophylaxis, Lovenox 40 mg S/C once a day. Counseled to stop smoking. PFTs as out patient. (4) NSTEMI (non-ST elevated myocardial infarction) Current Visit: Yes Status: Acute Plan to address problem: Management as per cardiology. (5) Pulmonary edema cardiac cause Current Visit: Yes Status: Acute Plan to address problem: Patient is on lasix. Management as per cardiology. (6) Lupus Current Visit: No Status: Acute Plan to address problem: Management as per primary care. (7) Pulmonary hypertension Current Visit: No Status: Acute Plan to address problem: Continue O2 supplementation Continue pulmonary and cardiac treatments. Subjective Date of service: 07/17/20 Interval history: Patient alert, awake this morning. Resting in Bed. On 6 litres o2. O2 saturation 95%. Still complaining slight shortness of breath, dry cough and slight left sided chest pain. Patient not in acute respiratory distress. Patient said he used CPAP last night. Patient afebrile. No leukocytosis. Remaining paracentesis fluid results still pending. Patient has history of smoking. Counseled to stop smoking. He said he used to drink alcohol and used drugs in the past. He is not doing it now. Works in [employer]. No known drug allergies. and has no children. Objective Vital Signs - 12hr 07/16/20 07/16/20 07/17/20 23:09 23:27 03:59 Temperature 97.5 F L 97.5 F L Pulse Rate 91 H 91 H 100 H Pulse Rate [ Bilateral Throughout] Respiratory 16 20 24 Rate Respiratory Rate [Bilateral Throughout] Blood Pressure 114/84 130/90 O2 Sat by Pulse 97 100 84 Oximetry 07/17/20 07/17/20 07/17/20 07:58 08:07 08:24 Temperature 97.3 F L Pulse Rate 90 Pulse Rate [ 90 Bilateral Throughout] Respiratory 18 Rate Respiratory 16 Rate [Bilateral Throughout] Blood Pressure 97/71 O2 Sat by Pulse 94 95 Oximetry 07/17/20 10:37 Temperature Pulse Rate 86 Pulse Rate [ Bilateral Throughout] Respiratory Rate Respiratory Rate [Bilateral Throughout] Blood Pressure 122/94 O2 Sat by Pulse Oximetry Constitutional: no acute distress, asleep Eyes: non-icteric ENT: oropharynx moist Neck: supple, no JVD Effort: mildly labored Ascultation: Bilateral: diminished breath sounds (at the bases.) Cardiovascular: regular rate and rhythm Gastrointestinal: normoactive bowel sounds, other (Slightly distended) Integumentary: normal Extremities: no cyanosis, edema Neurologic: non-focal exam, pupils equal and round Psychiatric: other (Unable to assess. Patient is in deep sleep.) CBC and BMP: 07/16/20 05:09 07/15/20 07:16 ABG, PT/INR, D-dimer: ABG ABG pH 7.415 (7.320-7.450) 07/16/20 14:01 POC ABG pCO2 45.9 mmHg (32.0-48.0) 07/16/20 14:01 POC ABG pO2 89.2 mmHg (83-108) 07/16/20 14:01 POC ABG HCO3 28.8 07/16/20 14:01 PT/INR, D-dimer PT 16.8 Sec. (12.2-14.9) H 07/14/20 06:18 INR 1.36 (0.87-1.13) H 07/14/20 06:18 Abnormal lab findings: Abnormal Labs 07/12/20 07/12/20 07/12/20 21:20 21:20 21:20 WBC MCV 98 H MCH 33 H MCHC RDW 19.7 H [place] % (Auto) 14.4 H PT 16.8 H INR 1.36 H ABG Sodium ABG Chloride ABG Glucose Carboxyhemoglobin Sodium 133 L Potassium Chloride 97.6 L Creatinine 0.5 L Glucose POC Glucose Calcium Total Bilirubin AST 45 H Alkaline Phosphatase 133 H Troponin T 0.042 H NT-Pro-B Natriuret Pep Albumin 3.4 L LDL Cholesterol Direct 46 L HDL Cholesterol 35 L Arterial Blood Glucose Arterial Blood Ionized Calcium Ur Specific [place] Urine WBC (Auto) 07/12/20 07/12/20 07/13/20 21:20 22:50 05:56 WBC MCV MCH MCHC RDW [place] % (Auto) PT INR ABG Sodium ABG Chloride ABG Glucose Carboxyhemoglobin Sodium Potassium Chloride Creatinine Glucose POC Glucose Calcium Total Bilirubin AST Alkaline Phosphatase Troponin T 0.044 H NT-Pro-B Natriuret Pep 7185 H Albumin LDL Cholesterol Direct HDL Cholesterol Arterial Blood Glucose Arterial Blood Ionized Calcium Ur Specific [place] 1.033 H Urine WBC (Auto) 14.0 H 07/13/20 07/14/20 07/14/20 22:13 06:18 06:18 WBC MCV 96 H MCH MCHC RDW 18.9 H [place] % (Auto) 14.5 H PT 16.8 H INR 1.36 H ABG Sodium ABG Chloride ABG Glucose Carboxyhemoglobin Sodium Potassium Chloride Creatinine Glucose POC Glucose 138 H Calcium Total Bilirubin AST Alkaline Phosphatase Troponin T NT-Pro-B Natriuret Pep Albumin LDL Cholesterol Direct HDL Cholesterol Arterial Blood Glucose Arterial Blood Ionized Calcium Ur Specific [place] Urine WBC (Auto) 07/14/20 07/15/20 07/15/20 06:18 07:16 07:16 WBC 3.9 L MCV 96 H MCH 33 H MCHC 35 H RDW 18.5 H [place] % (Auto) PT INR ABG Sodium ABG Chloride ABG Glucose Carboxyhemoglobin Sodium 134 L 130 L Potassium 3.5 L Chloride 97.3 L 96.8 L Creatinine 0.6 L 0.6 L Glucose 104 H POC Glucose Calcium 8.2 L 8.2 L Total Bilirubin 1.30 H AST Alkaline Phosphatase Troponin T NT-Pro-B Natriuret Pep Albumin 3.1 L LDL Cholesterol Direct HDL Cholesterol Arterial Blood Glucose Arterial Blood Ionized Calcium Ur Specific [place] Urine WBC (Auto) 07/15/20 07/15/20 07/15/20 11:22 16:05 21:53 WBC MCV MCH MCHC RDW [place] % (Auto) PT INR ABG Sodium ABG Chloride ABG Glucose Carboxyhemoglobin Sodium Potassium Chloride Creatinine Glucose POC Glucose 107 H 126 H 108 H Calcium Total Bilirubin AST Alkaline Phosphatase Troponin T NT-Pro-B Natriuret Pep Albumin LDL Cholesterol Direct HDL Cholesterol Arterial Blood Glucose Arterial Blood Ionized Calcium Ur Specific [place] Urine WBC (Auto) 07/16/20 07/16/20 07/17/20 14:01 15:31 07:24 WBC MCV MCH MCHC RDW [place] % (Auto) PT INR ABG Sodium 132.0 L ABG Chloride 97.0 L ABG Glucose 140 H Carboxyhemoglobin 1.7 H Sodium Potassium Chloride Creatinine Glucose POC Glucose 118 H 108 H Calcium Total Bilirubin AST Alkaline Phosphatase Troponin T NT-Pro-B Natriuret Pep Albumin LDL Cholesterol Direct HDL Cholesterol Arterial Blood Glucose 140 H Arterial Blood Ionized Calcium 4.5 L Ur Specific [place] Urine WBC (Auto)
--- NOTE | 2020-07-17 12:47 | Progress Note ---
Assessment and Plan Assessment and plan: 50-year-old male with known history of CHF, hypertension, COPD presenting to the emergency room today complaining of chest pain and shortness of breath. He has also been having some lower extremity swelling and abdominal swelling over the past 2 weeks. Patient indicates that he has been out of his medication for some time. Chest pain is about 4/10 in severity. Pain is substernal and worse on exertion. He has had associated shortness of breath. He denies any fever or chills, no nausea vomiting, no headache or dizziness, no diaphoresis. Patient denies any recent travel and no sick contacts. Denies any contact with anyone with COVID-19. Upon arrival in the emergency room patient was tachycardic and hypoxic. Work-up in the emergency room today reveals elevated BNP, CT angiogram of the chest reveals:1. No evidence of acute PTE. 2. Mild congestive heart failure superimposed on emphysema. 3. Small to moderate pericardial effusion and small pleural effusion. Upper abdominal ascites. Labs reveals elevated troponin. Patient is admitted with CHF exacerbation, non-ST elevation IN. 07/13: Patient seen and examined, reports improvement, Stress test report pending, outpatient pulmonary follow up, Anticipate discharge in am if improved. 07/14: Follow discussion with the patient we will resulted the patient does drink 6 packs of beer daily states he quit 2 months ago since he has been here no evidence of withdrawal noted. His abdomen is still protuberant and edematous with 2+ pitting edema bilateral lower extremity. Nevertheless he does have significant hypotension resulting in decrease of Lasix to daily. We will also obtain an abdominal ultrasound he did have an episode of shortness of breath last night and is on 2 L of oxygen right now will reevaluate with possible underlying cor pulmonale with congestive heart failure and probably COPD exacerbation. He also stated that he is not that much mobile at home. Will obtain physical therapy evaluation. We will watch 24 to 48 hours more. 07/15: Report of abdominal ultrasound:IMPRESSION: 1. Hepatomegaly. The hepatic parenchyma is diffusely heterogeneous indicative of hepatocellular disease.. 2. Abnormal appearance of the gallbladder. There is marked diffuse gallbladder wall thickening with single gallstone present. The appearance of the gallbladder is more suggestive of gallbladder wall thickening that is seen with severe hepatocellular disease rather than acute cholecystitis. However, clinical correlation is recommended. 3. Small to moderate amount of ascites noted within the abdomen. I have discussed this findings with the patient likely indicative of history of severe alcohol use. We will check an AFP for baseline. I have added spironolactone to the patient. While he has small to moderate ascites does not appear large enough to tap at this time. He understands that he may need paracentesis sometime in the future. I also discussed fluid restrictions to 1.2 L daily. He verbalized understanding. We will diurese for 1 more day and discharge in a.m.. Will perform a home O2 evaluation prior to discharge. 07/16: 50-year-old male admitted with chest pain or shortness of breath with presumably non-ST elevated IN stress test was negative. Ultrasound showed marked cirrhosis and mild to moderate ascites. Per cardiology patient also has underlying COPD CHF and hypertension and cor pulmonale. Patient is unable to tell me who his pipe liner is. Considering patient's severe hypoxia will obtain pipe liner to evaluate due to also underlying cor pulmonale. We will also obtain paracentesis diagnostic and therapeutic. Of advised the patient on the need to wear his oxygen. He has not been using the CPAP at night he states that this is because nobody places it on discussed with the nursing staff and will also discussed with the therapist also advised nursing to ensure compliance with this. His blood pressure precludes use of some of his medications have discontinued the amlodipine. He will get the spironolactone today we will monitor electrolytes. Likely can be discharged in the next 24 hours will likely need oxygen for discharge. We will also obtain an ABG 07/17. Patient is still needing oxygen to maintain sats. He complains of some shortness of breath with ambulation. Had paracentesis yesterday and he still has tense abdomen. He is on diuretics-Lasix and Aldactone. Cardiology and pulmonary recommendations appreciated. He will need a walk test to determine home O2 use. He will need to follow-up with GI as outpatient. Problems --Acute exacerbation of CHF (congestive heart failure) Patient admitted and placed on telemetry. He has been started on diuretics. Will monitor inputs and outputs and also monitor daily weight. Echo done in 01/26/2020 reveals ejection fraction of 45 to 50%. Cardiology accommodations appreciated --NSTEMI (non-ST elevated myocardial infarction) Continue aspirin and nitroglycerin as needed Stress test showed negative myocardial ischemia ----Acute hypoxic respiratory failure Continue oxygen supplementation --COPD (chronic obstructive pulmonary disease) She will be placed on nebulizing treatments as needed. --Hepatocellular disease with ascites Likely cor pulmonale Paracentesis performed shows clear ascitic fluid with no signs of SBP Continue diuretics-Lasix and Aldactone GI evaluation as outpatient -Mild hyponatremia Likely from fluid overload Continue to trend --DVT prophylaxis -Heparin History Interval history: Has some shortness of breath with exertion Hospitalist Physical - Physical exam Narrative exam: VITAL SIGNS: Reviewed. GENERAL: Awake HEAD: No signs of head trauma. EYES: Pupils are equal. Extraocular motions intact. MOUTH: Oropharynx is normal. NECK: No adenopathy, no JVD. CHEST: Trace rales at the bases CARDIAC: normal S1 and S2, without murmurs, gallops, or rubs. ABDOMEN: Slight tense. BS = MUSCULOSKELETAL: Edema ++ NEUROLOGIC EXAM: Alert and oriented x3. No focal neurologic deficits SKIN: No obvious lesions - Constitutional Vitals: Temp Pulse Resp BP Pulse Ox 98.2 F 99 H 18 123/96 93 07/17/20 12:10 07/17/20 12:10 07/17/20 12:10 07/17/20 12:10 07/17/20 12:10 HEART Score - HEART Score EKG: Non-specific Age: 45-65 Risk factors: 1-2 risk factors Troponin: Troponin T 0.044 ng/mL (0.00-0.029) H 07/13/20 05:56 Troponin: 1-3x normal limit Results - Labs CBC & Chem 7: 07/16/20 05:09 07/15/20 07:16 Labs: Laboratory Last Values WBC 3.9 K/mm3 (4.5-11.0) L 07/15/20 07:16 RBC 4.13 M/mm3 (3.65-5.03) 07/15/20 07:16 Hgb 13.1 gm/dl (11.8-15.2) 07/16/20 05:09 Hct 38.0 % (35.5-45.6) 07/16/20 05:09 MCV 96 fl (84-94) H 07/15/20 07:16 MCH 33 pg (28-32) H 07/15/20 07:16 MCHC 35 % (32-34) H 07/15/20 07:16 RDW 18.5 % (13.2-15.2) H 07/15/20 07:16 Plt Count 182 K/mm3 (140-440) 07/16/20 05:09 Lymph % (Auto) 21.8 % (13.4-35.0) 07/14/20 06:18 [place] % (Auto) 14.5 % (0.0-7.3) H 07/14/20 06:18 Eos % (Auto) 1.2 % (0.0-4.3) 07/14/20 06:18 Baso % (Auto) 0.8 % (0.0-1.8) 07/14/20 06:18 Lymph # (Auto) 1.2 K/mm3 (1.2-5.4) 07/14/20 06:18 [place] # (Auto) 0.8 K/mm3 (0.0-0.8) 07/14/20 06:18 Eos # (Auto) 0.1 K/mm3 (0.0-0.4) 07/14/20 06:18 Baso # (Auto) 0.0 K/mm3 (0.0-0.1) 07/14/20 06:18 Seg Neutrophils % 61.7 % (40.0-70.0) 07/14/20 06:18 Seg Neutrophils # 3.5 K/mm3 (1.8-7.7) 07/14/20 06:18 PT 16.8 Sec. (12.2-14.9) H 07/14/20 06:18 INR 1.36 (0.87-1.13) H 07/14/20 06:18 APTT 30.7 Sec. (24.2-36.6) 07/12/20 21:20 Heparin Anti-Xa Level 0.38 U.I./ml (0.3-0.7) 07/13/20 15:30 ABG pH 7.415 (7.320-7.450) 07/16/20 14:01 POC ABG pCO2 45.9 mmHg (32.0-48.0) 07/16/20 14:01 POC ABG pO2 89.2 mmHg (83-108) 07/16/20 14:01 POC ABG HCO3 28.8 07/16/20 14:01 POC ABG Base Excess 3.5 07/16/20 14:01 ABG Hemoglobin 14.1 (12.0-17.5) 07/16/20 14:01 ABG Oxyhemoglobin 94.9 (94-98) 07/16/20 14:01 ABG Methemoglobin 0 (0.0-1.5) 07/16/20 14:01 ABG Sodium 132.0 mmol/L (136.0-145.0) L 07/16/20 14:01 ABG Potassium 3.5 mmol/L (3.40-4.50) 07/16/20 14:01 ABG Chloride 97.0 mmol/L (98-107) L 07/16/20 14:01 ABG Glucose 140 mg/dL (65-95) H 07/16/20 14:01 Carboxyhemoglobin 1.7 (0.5-1.5) H 07/16/20 14:01 FiO2 28.0 07/16/20 14:01 Sodium 130 mmol/L (137-145) L 07/15/20 07:16 Potassium 3.8 mmol/L (3.6-5.0) 07/15/20 07:16 Chloride 96.8 mmol/L (98-107) L 07/15/20 07:16 Carbon Dioxide 29 mmol/L (22-30) 07/15/20 07:16 Anion Gap 8 mmol/L 07/15/20 07:16 BUN 15 mg/dL (9-20) 07/15/20 07:16 Creatinine 0.6 mg/dL (0.8-1.3) L 07/15/20 07:16 Estimated GFR > 60 ml/min 07/15/20 07:16 BUN/Creatinine Ratio 25 % 07/15/20 07:16 Glucose 99 mg/dL (75-100) 07/15/20 07:16 POC Glucose 110 mg/dL (70-105) H 07/17/20 11:18 Calcium 8.2 mg/dL (8.4-10.2) L 07/15/20 07:16 Total Bilirubin 1.30 mg/dL (0.1-1.2) H 07/15/20 07:16 AST 35 units/L (5-40) 07/15/20 07:16 ALT 15 units/L (7-56) 07/15/20 07:16 Alkaline Phosphatase 102 units/L (35-129) 07/15/20 07:16 Troponin T 0.044 ng/mL (0.00-0.029) H 07/13/20 05:56 NT-Pro-B Natriuret Pep 7185 pg/mL (0-900) H 07/12/20 21:20 Total Protein 7.8 g/dL (6.3-8.2) 07/15/20 07:16 Albumin 3.1 g/dL (3.9-5) L 07/15/20 07:16 Albumin/Globulin Ratio 0.7 % 07/15/20 07:16 Triglycerides 73 mg/dL (2-149) 07/12/20 21:20 Cholesterol 88 mg/dL (50-199) 07/12/20 21:20 LDL Cholesterol Direct 46 mg/dL (50-130) L 07/12/20 21:20 HDL Cholesterol 35 mg/dL (40-59) L 07/12/20 21:20 Cholesterol/HDL Ratio 2.51 % 07/12/20 21:20 Arterial Blood Glucose 140 mg/dL (65-95) H 07/16/20 14:01 Arterial Blood Ionized Calcium 4.5 mg/dL (4.6-5.3) L 07/16/20 14:01 Urine Color [place] (Yellow) 07/12/20 22:50 Urine Turbidity Slightly-cloudy (Clear) 07/12/20 22:50 Urine pH 5.0 (5.0-7.0) 07/12/20 22:50 Ur Specific [place] 1.033 (1.003-1.030) H 07/12/20 22:50 Urine Protein >500 mg/dL (Negative) 07/12/20 22:50 Urine Glucose (UA) 50 mg/dL (Negative) 07/12/20 22:50 Urine Ketones Neg mg/dL (Negative) 07/12/20 22:50 Urine Blood Neg (Negative) 07/12/20 22:50 Urine Nitrite Neg (Negative) 07/12/20 22:50 Urine Bilirubin Sm (Negative) 07/12/20 22:50 Urine Ictotest Positive (Negative) 07/12/20 22:50 Urine Urobilinogen 4.0 mg/dL (<2.0) 07/12/20 22:50 Ur Leukocyte Esterase Neg (Negative) 07/12/20 22:50 Urine WBC (Auto) 14.0 /HPF (0.0-6.0) H 07/12/20 22:50 Urine RBC (Auto) 3.0 /HPF (0.0-6.0) 07/12/20 22:50 U Epithel Cells (Auto) < 1.0 /HPF (0-13.0) 07/12/20 22:50 Urine Mucus 3+ /HPF 07/12/20 22:50 Fluid Type Ascitic 07/16/20 Unknown Fluid Color Yellow 07/16/20 Unknown Fluid Appearance Clear 07/16/20 Unknown Fluid WBC 85 /mm3 07/16/20 Unknown Fluid RBC 4150 /mm3 07/16/20 Unknown Fluid Seg Neutrophils 17.0 % 07/16/20 Unknown Fluid Lymphocytes 43.0 % 07/16/20 Unknown Fluid Reactive Lymphs 0 % 07/16/20 Unknown Fluid Monocytes 40.0 % 07/16/20 Unknown Fluid Eosinophils 0 % 07/16/20 Unknown Fluid Basophils 0 % 07/16/20 Unknown Fluid Comment Macrophage 07/16/20 Unknown Coronavirus (PCR) Negative (Negative) 07/14/20 09:20 Microbiology: Microbiology 07/16/20 Unknown Ascities Fluid Body Fluid Culture - Preliminary 07/12/20 22:50 Urine,Clean Catch Urine Culture - Final NO GROWTH AFTER 48 HOURS Carpio/IV: Voiding Method Toilet IV Catheter Type [Right INT / Saline Lock Forearm] Active Medications - Current Medications Current Medications: Generic Name Dose Route Start Last Admin Trade Name Freq PRN Reason Stop Dose Admin Acetaminophen 650 mg 07/13/20 00:18 Acetaminophen 325 Mg Tab PO Q4H PRN Pain MILD(1-3)/Fever >100.5/CRAIG Albuterol 2.5 mg 07/13/20 00:18 Albuterol 2.5 Mg/3 Ml Nebu IH Q4HRT PRN Shortness Of Breath Arformoterol Tartrate 15 mcg 07/13/20 09:00 07/17/20 07:57 Arformoterol 15 Mcg/2 Ml Nebu IH 15 mcg Q12HRT CONSUELO Administration Aspirin 325 mg 07/14/20 10:00 07/17/20 10:37 Aspirin Ec 325 Mg Tab PO 325 mg QDAY CONSUELO Administration Budesonide 0.5 mg 07/13/20 09:00 07/17/20 07:58 Budesonide 0.5 Mg/2 Ml Nebu IH 0.5 mg Q12HRT CONSUELO Administration Carvedilol 3.125 mg 07/13/20 08:00 07/17/20 10:37 Carvedilol 3.125 Mg Tab PO 3.125 mg BID@0800,1700 CONSUELO Administration Dextrose 0 ml 07/13/20 00:18 Dextrose 50% In Water (25gm) 50 Ml Syringe IV Q30MIN PRN Hypoglycemia Protocol Folic Acid 1 mg 07/13/20 10:00 07/17/20 10:37 Folic Acid 1 Mg Tab PO 1 mg QDAY ON LICENSE OF [facility] Administration Furosemide 40 mg 07/14/20 10:20 07/17/20 10:37 Furosemide 40 Mg/4 Ml Inj IV 40 mg QDAY CONSUELO Administration Hydralazine HCl 10 mg 07/13/20 12:21 Hydralazine 20 Mg/1 Ml Inj IV Q4HR PRN HTN SYS>160 OR MANDIE>105 Insulin Human Lispro 0 unit 07/13/20 07:30 07/17/20 08:28 Insulin Lispro 100 Unit/Ml SUB-Q Not Given ACHS ON LICENSE OF [facility] Protocol Lisinopril 20 mg 07/13/20 10:00 07/17/20 10:38 Lisinopril 20 Mg Tab PO 20 mg QDAY ON LICENSE OF [facility] Administration Magnesium Hydroxide 30 ml 07/13/20 00:18 Magnesium Hydroxide (Mom) Oral Liqd Udc PO Q4H PRN Constipation Morphine Sulfate 2 mg 07/13/20 00:18 Morphine 2 Mg/1 Ml Inj IV Q5MIN PRN Chest Pain unrelieved by NTG Nitroglycerin 0.4 mg 07/13/20 00:18 Nitroglycerin 0.4 Mg Tab Subl SL Q5M PRN Chest Pain Ondansetron HCl 4 mg 07/13/20 00:18 Ondansetron 4 Mg/2 Ml Inj IV Q8H PRN Nausea And Vomiting Sodium Chloride 10 ml 07/13/20 10:00 07/17/20 10:38 Sodium Chloride 0.9% 10 Ml Flush Syringe IV 10 ml BID CONSUELO Administration Sodium Chloride 10 ml 07/13/20 00:18 07/13/20 06:41 Sodium Chloride 0.9% 10 Ml Flush Syringe IV 10 ml PRN PRN Administration LINE FLUSH Spironolactone 25 mg 07/15/20 10:00 07/17/20 10:37 Spironolactone 25 Mg Tab PO 25 mg QDAY CONSUELO Administration Nutrition/Malnutrition Assess - Dietary Evaluation Nutrition/Malnutrition Findings: Nutrition Notes Start: 07/13/20 11:38 Freq: Status: Active Protocol: Document 07/16/20 11:52 (Rec: 07/16/20 11:54 [email or web address]) Nutrition Notes Initial or Follow up Brief Note Current Diagnosis COPD,Heart Failure,Respiratory Failure Other Pertinent Diagnosis anasarca, hypoxia, NSTEMI Current Diet Cardiac Subjective/Other Information FU for intakes and diet advancement. Pt reports eating 100% of meals with no issues. Nutrition Intervention Anticipated Discharge Needs: Cardiac Revisit per MD consult or patient Sign Off request:
--- NOTE | 2020-07-17 13:36 | XRay Report ---
CHEST 1 VIEW INDICATION: Hypoxia. COMPARISON: 07/12/2020 FINDINGS: Support devices: None. Heart: Stable mild cardiomegaly Lungs/Pleura: The interstitium remains prominent throughout both lungs suggesting interstitial edema or chronic interstitial changes. Mild emphysematous changes are suspected in the upper lung zones. No acute infiltrate, pleural effusion or pneumothorax. Additional findings: None. IMPRESSION: No change since 07/12/2020. Mild cardiomegaly. Mild interstitial edema versus chronic interstitial changes. Signer Name: Pelon Hardin Jr, MD Signed: 07/17/2020 1:31 PM Workstation Name: [id number]
[2020-07-18 05:55] LABS: Hematocrit 38.5 % (35.5-45.6); Hemoglobin 13.3 gm/dl (11.8-15.2); Mean Corpuscular HGB Conc 35 % (32-34); Mean Corpuscular Volume 96 fl (84-94); Platelet Count 173 K/mm3 (140-440); Red Blood Count 3.99 M/mm3 (3.65-5.03); Red Cell Distribution Width 18.5 % (13.2-15.2)
[2020-07-18 06:11] LABS: Alanine Aminotransferase 13 units/L (7-56); Blood Urea Nitrogen 14 mg/dL (9-20); Calcium 8.5 mg/dL (8.4-10.2); Hemolysis Index 1
[2020-07-18 06:13] LABS: BUN/Creatinine Ratio 23
[2020-07-18 06:52] LABS: Anisocytosis 1+; Hypochromasia 1+; Target Cells Few; Total Cells Counted 100
[2020-07-18 06:53] LABS: Platelet Estimate Consistent w Auto
[2020-07-18] MEDS: INSULIN LISPRO 100 UNIT/ML SUB-Q SCH ×5 (08:00→22:09)
[2020-07-18] MEDS: ARFORMOTEROL 15 MCG/2 ML NEBU IH SCH ×2 (08:20→21:05)
[2020-07-18] MEDS: BUDESONIDE 0.5 MG/2 ML NEBU IH SCH ×2 (08:20→21:05)
[2020-07-18] MEDS: carvediloL 3.125 MG TAB PO SCH ×2 (08:45→17:05)
[2020-07-18] MEDS: FOLIC ACID 1 MG TAB PO SCH (09:14)
[2020-07-18] MEDS: ASPIRIN EC 325 MG TAB PO SCH (09:14)
[2020-07-18] MEDS: SPIRONOLACTONE 25 MG TAB PO SCH (09:15)
[2020-07-18] MEDS: FUROSEMIDE 40 MG/4 ML INJ IV SCH ×2 (09:15→22:03)
[2020-07-18] MEDS: LISINOPRIL 20 MG TAB PO SCH (09:15)
--- NOTE | 2020-07-18 09:58 | Progress Note ---
Assessment and Plan Atypical chest pain: Negative MPI this admission Ascites s/p paracentesis Obstructive sleep apnea Cor pulmonale Tobacco use H/O alcohol abuse 01/2020 Echo: findings of cor pulmonale, with enlarged right heart chambers, tricuspid regurgitation and pulmonary hypertension. Well preserved left ventricular chamber size and systolic function ejection fraction reported at 45 to 50%. Recommend: Tobacco/alcohol cessation. Conservative cardiac management. Subjective Date of service: 07/18/20 Interval history: Patient has no cardiac complaints. Objective Vital Signs Temp Pulse Pulse Resp Resp BP BP 07/18/20 09:15 85 125/95 07/18/20 08:45 79 115/88 07/18/20 08:34 97.4 F L 79 108/81 07/18/20 08:21 07/18/20 08:20 84 16 07/18/20 05:14 97.2 F L 87 20 100/76 07/18/20 00:00 80 07/17/20 23:14 97.4 F L 93 H 20 125/97 07/17/20 21:47 07/17/20 21:46 82 18 07/17/20 19:24 97.4 F L 81 20 120/94 07/17/20 16:47 82 18 100/66 07/17/20 12:10 98.2 F 99 H 18 123/96 07/17/20 11:39 22 122/94 07/17/20 10:37 86 122/94 07/17/20 10:00 99 H 22 Pulse Ox 07/18/20 09:15 07/18/20 08:45 07/18/20 08:34 96 07/18/20 08:21 100 07/18/20 08:20 07/18/20 05:14 100 07/18/20 00:00 07/17/20 23:14 97 07/17/20 21:47 100 07/17/20 21:46 07/17/20 19:24 98 07/17/20 16:47 07/17/20 12:10 93 07/17/20 11:39 07/17/20 10:37 07/17/20 10:00 94 - Physical Examination General: No Apparent Distress HEENT: Positive: PERRL Neck: Positive: neck supple Cardiac: Positive: Reg Rate and Rhythm Lungs: Positive: Decreased Breath Sounds Neuro: Positive: Grossly Intact Abdomen: Positive: Distended - Labs and Meds Cardiac Enzymes 07/18/20 Range/Units 05:29 AST 33 (5-40) units/L CBC 07/18/20 Range/Units 05:29 WBC 3.8 L (4.5-11.0) K/mm3 RBC 3.99 (3.65-5.03) M/mm3 Hgb 13.3 (11.8-15.2) gm/dl Hct 38.5 (35.5-45.6) % Plt Count 173 (140-440) K/mm3 Comprehensive Metabolic Panel 07/18/20 Range/Units 05:29 Sodium 131 L (137-145) mmol/L Potassium 4.4 (3.6-5.0) mmol/L Chloride 95.7 L (98-107) mmol/L Carbon Dioxide 29 (22-30) mmol/L BUN 14 (9-20) mg/dL Creatinine 0.6 L (0.8-1.3) mg/dL Glucose 88 (75-100) mg/dL Calcium 8.5 (8.4-10.2) mg/dL AST 33 (5-40) units/L ALT 13 (7-56) units/L Alkaline Phosphatase 102 (35-129) units/L Total Protein 7.4 (6.3-8.2) g/dL Albumin 3.0 L (3.9-5) g/dL
--- NOTE | 2020-07-18 11:49 | Discharge Summary ---
Providers - Providers Date of Admission: 07/12/20 23:49 Date of discharge: 07/19/20 Attending physician: SUSAN ADAN 07/13/20 Consult to Cardiac Rehabilitation [CONS] Routine Reason For Exam: Phase I 07/13/20 00:18 Consult to Cardiology [CONS] Routine Consulting Provider: STEVAN WOLFE Reason For Exam: chest pain, CHF exac 07/16/20 10:12 Consult to Physician [CONS] Routine Comment: Consulting Provider: SANJAY LOPEZ Physician Instructions: Reason For Exam: hypoxic respiratory failure 07/17/20 12:44 Consult to Case Management [CONS] Routine Services Needed at Discharge: Home O2 Notified:: case management 07/18/20 09:50 Physical Therapy Evaluation and Treat [CONS] Routine Comment: Reason For Exam: Debility Primary care physician: PAINTER SPRING Hospitalization Condition: Critical Hospital course: 50-year-old male with known history of CHF, hypertension, COPD presenting to the emergency room today complaining of chest pain and shortness of breath. He has also been having some lower extremity swelling and abdominal swelling over the past 2 weeks. Patient indicates that he has been out of his medication for some time. Chest pain is about 4/10 in severity. Pain is substernal and worse on exertion. He has had associated shortness of breath. He denies any fever or chills, no nausea vomiting, no headache or dizziness, no diaphoresis. Patient denies any recent travel and no sick contacts. Denies any contact with anyone with COVID-19. Upon arrival in the emergency room patient was tachycardic and hypoxic. Work-up in the emergency room today reveals elevated BNP, CT angiogram of the chest reveals:1. No evidence of acute PTE. 2. Mild congestive heart failure superimposed on emphysema. 3. Small to moderate pericardial effusion and small pleural effusion. Upper abdominal ascites. Labs reveals elevated troponin. Patient is admitted with CHF exacerbation, non-ST elevation VA. 07/13: Patient seen and examined, reports improvement, Stress test report pending, outpatient pulmonary follow up, Anticipate discharge in am if improved. 07/14: Follow discussion with the patient we will resulted the patient does drink 6 packs of beer daily states he quit 2 months ago since he has been here no evidence of withdrawal noted. His abdomen is still protuberant and edematous with 2+ pitting edema bilateral lower extremity. Nevertheless he does have significant hypotension resulting in decrease of Lasix to daily. We will also obtain an abdominal ultrasound he did have an episode of shortness of breath last night and is on 2 L of oxygen right now will reevaluate with possible underlying cor pulmonale with congestive heart failure and probably COPD exacerbation. He also stated that he is not that much mobile at home. Will obtain physical therapy evaluation. We will watch 24 to 48 hours more. 07/15: Report of abdominal ultrasound:IMPRESSION: 1. Hepatomegaly. The hepatic parenchyma is diffusely heterogeneous indicative of hepatocellular disease.. 2. Abnormal appearance of the gallbladder. There is marked diffuse gallbladder wall thickening with single gallstone present. The appearance of the gallbladder is more suggestive of gallbladder wall thickening that is seen with severe hepato cellular disease rather than acute cholecystitis. However, clinical correlation is recommended. 3. Small to moderate amount of ascites noted within the abdomen. I have discussed this findings with the patient likely indicative of history of severe alcohol use. We will check an AFP for baseline. I have added spironolactone to the patient. While he has small to moderate ascites does not appear large enough to tap at this time. He understands that he may need paracentesis sometime in the future. I also discussed fluid restrictions to 1.2 L daily. He verbalized understanding. We will diurese for 1 more day and discharge in a.m.. Will perform a home O2 evaluation prior to discharge. 07/16: 50-year-old male admitted with chest pain or shortness of breath with presumably non-ST elevated VA stress test was negative. Ultrasound showed marked cirrhosis and mild to moderate ascites. Per cardiology patient also has underlying COPD CHF and hypertension and cor pulmonale. 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 Considering patient's severe hypoxia will obtain cold rolling supervisor to evaluate due to also underlying cor pulmonale. We will also obtain paracentesis diagnostic and therapeutic. Of advised the patient on the need to wear his oxygen. He has not been using the CPAP at night he states that this is because nobody places it on discussed with the nursing staff and will also discussed with the therapist also advised nursing to ensure compliance with this. His blood pressure precludes use of some of his medications have discontinued the amlodipine. He will get the spironolactone today we will monitor electrolytes. Likely can be discharged in the next 24 hours will likely need oxygen for discharge. We will also obtain an ABG 07/17. Patient is still needing oxygen to maintain sats. He complains of some shortness of breath with ambulation. Had paracentesis yesterday and he still has tense abdomen. He is on diuretics-Lasix and Aldactone. Cardiology and pulmonary recommendations appreciated. He will need a walk test to determine home O2 use. He will need to follow-up with GI as outpatient. 07/18. Patient will be needing oxygen as he desaturated to 86% on room air. Paracentesis results shows no malignant cells. Patient will need to follow-up with GI, pulmonology and cardiology. He will continue diuretics as ordered. He will follow-up with pulmonology for pulmonary function tests. He has been advised to stop tobacco abuse. He agrees with plan. He is hemodynamically stable to be discharged today Disposition: DC-01 TO HOME OR SELFCARE Time spent for discharge: 45 - Discharge Diagnoses (1) Hypoxia Status: Acute (2) Lower extremity edema Status: Acute (3) NSTEMI (non-ST elevated myocardial infarction) Status: Acute (4) Abdominal distention Status: Acute (5) CHF (congestive heart failure) Status: Acute Qualifiers: Heart failure type: unspecified Heart failure chronicity: acute Qualified Code(s): I50.9 - Heart failure, unspecified (6) COPD (chronic obstructive pulmonary disease) Status: Acute (7) Pulmonary hypertension Status: Acute Core Measure Documentation - Palliative Care Palliative Care/ Comfort Measures: Not Applicable - Core Measures Any of the following diagnoses?: none Exam - Physical Exam Narrative exam: VITAL SIGNS: Reviewed. GENERAL: Awake HEAD: No signs of head trauma. EYES: Pupils are equal. Extraocular motions intact. MOUTH: Oropharynx is normal. NECK: No adenopathy, no JVD. CHEST: Trace rales at the bases CARDIAC: normal S1 and S2, without murmurs, gallops, or rubs. ABDOMEN: Slightly tense. BS + MUSCULOSKELETAL: Edema ++ NEUROLOGIC EXAM: Alert and oriented x3. No focal neurologic deficits SKIN: No obvious lesions - Constitutional Vitals: Temp Pulse Resp BP Pulse Ox 97.1 F L 75 18 102/74 90 07/18/20 11:37 07/18/20 11:38 07/18/20 11:37 07/18/20 11:38 07/18/20 11:38 Plan Activity: no restrictions Additional Instructions: Continue medications as ordered. Follow-up with gastroenterology in the office for monitoring of ascites and determination of need for paracentesis. Follow-up with pulmonology for pulmonary function tests. Stop tobacco abuse or alcohol intake. Continue oxygen use Follow up with: VERONICA RO MD [Staff Physician] - 7 Days JASON RHODES MD [Staff Physician] - 7 Days SHINE TORO DO [Staff Physician] - 7 Days PRIMARY CARE, [Primary Care Provider] - 3-5 Days OMAR CALLEJAS MD [Staff Physician] - 7 Days Prescriptions: Spironolactone [Aldactone] 25 mg PO QDAY #30 tablet Furosemide [Lasix] 20 mg PO DAILY #30 tablet
--- NOTE | 2020-07-18 20:19 | Progress Note ---
Assessment and Plan Patient sleeping at this time On room air.. O2 saturation 85%. Recommend to place him on 5 litres via nasal canula. Patient not in acute respiratory distress. Patient goes on CPAP during night time. Patient afebrile. No leukocytosis. Remaining paracentesis fluid results still pending. Patient has history of smoking. Counseled to stop smoking. He said he used to drink alcohol and used drugs in the past. He is not doing it now. Works in [employer]. No known drug allergies. and has no children. - Patient Problems (1) Acute exacerbation of CHF (congestive heart failure) Current Visit: Yes Status: Acute Qualifiers: Heart failure type: unspecified Qualified Code(s): I50.9 - Heart failure, unspecified Plan to address problem: Patient is on Lasix. Management as per cardiology. (2) Chest pain Current Visit: Yes Status: Acute Qualifiers: Chest pain type: unspecified Qualified Code(s): R07.9 - Chest pain, unspecified Plan to address problem: Management as per cardiology. (3) COPD (chronic obstructive pulmonary disease) Current Visit: No Status: Acute Plan to address problem: Brovanna/Budesonid aerosol treatments q 12 hours. Albuterol inhaler 2 puffs po q6 hours Prn for shortness of breath. Recommend DVT prophylaxis, Lovenox 40 mg S/C once a day. Counseled to stop smoking. PFTs as out patient. (4) NSTEMI (non-ST elevated myocardial infarction) Current Visit: Yes Status: Acute Plan to address problem: Management as per cardiology. (5) Pulmonary edema cardiac cause Current Visit: Yes Status: Acute Plan to address problem: Patient is on lasix. Management as per cardiology. (6) Lupus Current Visit: No Status: Acute Plan to address problem: Management as per primary care. (7) Pulmonary hypertension Current Visit: No Status: Acute Plan to address problem: Continue O2 supplementation Continue pulmonary and cardiac treatments. Subjective Date of service: 07/18/20 Interval history: Patient sleeping at this time On room air.. O2 saturation 85%. Recommend to place him on 5 litres via nasal canula. Patient not in acute respiratory distress. Patient goes on CPAP during night time. Patient afebrile. No leukocytosis. Remaining paracentesis fluid results still pending. Patient has history of smoking. Counseled to stop smoking. He said he used to drink alcohol and used drugs in the past. He is not doing it now. Works in [employer]. No known drug allergies. and has no children. Objective Vital Signs - 12hr 07/18/20 07/18/20 07/18/20 08:20 08:21 08:34 Temperature 97.4 F L Pulse Rate 79 Pulse Rate [ Apical] Pulse Rate [ 84 Bilateral Throughout] Pulse Rate [ From Monitor] Respiratory Rate Respiratory 16 Rate [Bilateral Throughout] Blood Pressure 108/81 O2 Sat by Pulse 100 96 Oximetry 07/18/20 07/18/20 07/18/20 08:45 09:15 10:00 Temperature Pulse Rate 79 85 Pulse Rate [ 89 Apical] Pulse Rate [ Bilateral Throughout] Pulse Rate [ 89 From Monitor] Respiratory 17 Rate Respiratory Rate [Bilateral Throughout] Blood Pressure 115/88 125/95 O2 Sat by Pulse 96 Oximetry 07/18/20 07/18/20 07/18/20 11:37 11:38 12:00 Temperature 97.1 F L Pulse Rate 75 75 Pulse Rate [ Apical] Pulse Rate [ Bilateral Throughout] Pulse Rate [ From Monitor] Respiratory 18 Rate Respiratory Rate [Bilateral Throughout] Blood Pressure 102/74 O2 Sat by Pulse 94 90 Oximetry 07/18/20 07/18/20 07/18/20 15:24 17:05 20:03 Temperature 98.3 F 97.2 F L Pulse Rate 88 75 87 Pulse Rate [ Apical] Pulse Rate [ Bilateral Throughout] Pulse Rate [ From Monitor] Respiratory 18 Rate Respiratory Rate [Bilateral Throughout] Blood Pressure 108/76 110/73 102/77 O2 Sat by Pulse 96 85 Oximetry Constitutional: no acute distress, asleep Eyes: non-icteric ENT: oropharynx moist Neck: supple, no JVD Effort: mildly labored Ascultation: Bilateral: diminished breath sounds (at the bases.) Cardiovascular: regular rate and rhythm Gastrointestinal: normoactive bowel sounds, other (Slightly distended) Integumentary: normal Extremities: no cyanosis, edema Neurologic: non-focal exam, pupils equal and round Psychiatric: other (Unable to assess. Patient is in deep sleep.) CBC and BMP: 07/18/20 05:29 07/18/20 05:29 ABG, PT/INR, D-dimer: ABG ABG pH 7.415 (7.320-7.450) 07/16/20 14:01 POC ABG pCO2 45.9 mmHg (32.0-48.0) 07/16/20 14:01 POC ABG pO2 89.2 mmHg (83-108) 07/16/20 14:01 POC ABG HCO3 28.8 07/16/20 14:01 PT/INR, D-dimer PT 16.8 Sec. (12.2-14.9) H 07/14/20 06:18 INR 1.36 (0.87-1.13) H 07/14/20 06:18 Abnormal lab findings: Abnormal Labs 07/12/20 07/12/20 07/12/20 21:20 21:20 21:20 WBC MCV 98 H MCH 33 H MCHC RDW 19.7 H [place] % (Auto) 14.4 H Monocytes % (Manual) PT 16.8 H INR 1.36 H ABG Sodium ABG Chloride ABG Glucose Carboxyhemoglobin Sodium 133 L Potassium Chloride 97.6 L Creatinine 0.5 L Glucose POC Glucose Calcium Total Bilirubin AST 45 H Alkaline Phosphatase 133 H Troponin T 0.042 H NT-Pro-B Natriuret Pep Albumin 3.4 L LDL Cholesterol Direct 46 L HDL Cholesterol 35 L Arterial Blood Glucose Arterial Blood Ionized Calcium Ur Specific [place] Urine WBC (Auto) 07/12/20 07/12/20 07/13/20 21:20 22:50 05:56 WBC MCV MCH MCHC RDW [place] % (Auto) Monocytes % (Manual) PT INR ABG Sodium ABG Chloride ABG Glucose Carboxyhemoglobin Sodium Potassium Chloride Creatinine Glucose POC Glucose Calcium Total Bilirubin AST Alkaline Phosphatase Troponin T 0.044 H NT-Pro-B Natriuret Pep 7185 H Albumin LDL Cholesterol Direct HDL Cholesterol Arterial Blood Glucose Arterial Blood Ionized Calcium Ur Specific [place] 1.033 H Urine WBC (Auto) 14.0 H 07/13/20 07/14/20 07/14/20 22:13 06:18 06:18 WBC MCV 96 H MCH MCHC RDW 18.9 H [place] % (Auto) 14.5 H Monocytes % (Manual) PT 16.8 H INR 1.36 H ABG Sodium ABG Chloride ABG Glucose Carboxyhemoglobin Sodium Potassium Chloride Creatinine Glucose POC Glucose 138 H Calcium Total Bilirubin AST Alkaline Phosphatase Troponin T NT-Pro-B Natriuret Pep Albumin LDL Cholesterol Direct HDL Cholesterol Arterial Blood Glucose Arterial Blood Ionized Calcium Ur Specific [place] Urine WBC (Auto) 07/14/20 07/15/20 07/15/20 06:18 07:16 07:16 WBC 3.9 L MCV 96 H MCH 33 H MCHC 35 H RDW 18.5 H [place] % (Auto) Monocytes % (Manual) PT INR ABG Sodium ABG Chloride ABG Glucose Carboxyhemoglobin Sodium 134 L 130 L Potassium 3.5 L Chloride 97.3 L 96.8 L Creatinine 0.6 L 0.6 L Glucose 104 H POC Glucose Calcium 8.2 L 8.2 L Total Bilirubin 1.30 H AST Alkaline Phosphatase Troponin T NT-Pro-B Natriuret Pep Albumin 3.1 L LDL Cholesterol Direct HDL Cholesterol Arterial Blood Glucose Arterial Blood Ionized Calcium Ur Specific [place] Urine WBC (Auto) 07/15/20 07/15/20 07/15/20 11:22 16:05 21:53 WBC MCV MCH MCHC RDW [place] % (Auto) Monocytes % (Manual) PT INR ABG Sodium ABG Chloride ABG Glucose Carboxyhemoglobin Sodium Potassium Chloride Creatinine Glucose POC Glucose 107 H 126 H 108 H Calcium Total Bilirubin AST Alkaline Phosphatase Troponin T NT-Pro-B Natriuret Pep Albumin LDL Cholesterol Direct HDL Cholesterol Arterial Blood Glucose Arterial Blood Ionized Calcium Ur Specific [place] Urine WBC (Auto) 07/16/20 07/16/20 07/17/20 14:01 15:31 07:24 WBC MCV MCH MCHC RDW [place] % (Auto) Monocytes % (Manual) PT INR ABG Sodium 132.0 L ABG Chloride 97.0 L ABG Glucose 140 H Carboxyhemoglobin 1.7 H Sodium Potassium Chloride Creatinine Glucose POC Glucose 118 H 108 H Calcium Total Bilirubin AST Alkaline Phosphatase Troponin T NT-Pro-B Natriuret Pep Albumin LDL Cholesterol Direct HDL Cholesterol Arterial Blood Glucose 140 H Arterial Blood Ionized Calcium 4.5 L Ur Specific [place] Urine WBC (Auto) 07/17/20 07/17/20 07/18/20 11:18 16:25 05:29 WBC 3.8 L MCV 96 H MCH 33 H MCHC 35 H RDW 18.5 H [place] % (Auto) Monocytes % (Manual) 17.0 H PT INR ABG Sodium ABG Chloride ABG Glucose Carboxyhemoglobin Sodium Potassium Chloride Creatinine Glucose POC Glucose 110 H 107 H Calcium Total Bilirubin AST Alkaline Phosphatase Troponin T NT-Pro-B Natriuret Pep Albumin LDL Cholesterol Direct HDL Cholesterol Arterial Blood Glucose Arterial Blood Ionized Calcium Ur Specific [place] Urine WBC (Auto) 07/18/20 05:29 WBC MCV MCH MCHC RDW [place] % (Auto) Monocytes % (Manual) PT INR ABG Sodium ABG Chloride ABG Glucose Carboxyhemoglobin Sodium 131 L Potassium Chloride 95.7 L Creatinine 0.6 L Glucose POC Glucose Calcium Total Bilirubin AST Alkaline Phosphatase Troponin T NT-Pro-B Natriuret Pep 1547 H Albumin 3.0 L LDL Cholesterol Direct HDL Cholesterol Arterial Blood Glucose Arterial Blood Ionized Calcium Ur Specific [place] Urine WBC (Auto)
[2020-07-19 06:33] LABS: Hematocrit 38.8 % (35.5-45.6); Hemoglobin 13.3 gm/dl (11.8-15.2); Mean Corpuscular HGB Conc 34 % (32-34); Mean Corpuscular Volume 96 fl (84-94); Platelet Count 171 K/mm3 (140-440); Red Blood Count 4.04 M/mm3 (3.65-5.03); Red Cell Distribution Width 18.3 % (13.2-15.2)
[2020-07-19 07:04] LABS: Alanine Aminotransferase 14 units/L (7-56); Albumin 3.2 g/dL (3.9-5); Blood Urea Nitrogen 16 mg/dL (9-20); Calcium 8.4 mg/dL (8.4-10.2); Hemolysis Index 0
[2020-07-19 07:05] LABS: BUN/Creatinine Ratio 27
[2020-07-19] MEDS: INSULIN LISPRO 100 UNIT/ML SUB-Q SCH ×2 (08:05→12:49)
[2020-07-19] MEDS: FOLIC ACID 1 MG TAB PO SCH (09:09)
[2020-07-19] MEDS: SPIRONOLACTONE 25 MG TAB PO SCH (09:09)
[2020-07-19] MEDS: LISINOPRIL 20 MG TAB PO SCH (09:10)
[2020-07-19] MEDS: carvediloL 3.125 MG TAB PO SCH ×2 (09:10→16:51)
[2020-07-19] MEDS: FUROSEMIDE 40 MG/4 ML INJ IV SCH (09:10)
[2020-07-19] MEDS: ASPIRIN EC 325 MG TAB PO SCH (09:10)
[2020-07-19] MEDS: BUDESONIDE 0.5 MG/2 ML NEBU IH SCH (09:16)
[2020-07-19] MEDS: ARFORMOTEROL 15 MCG/2 ML NEBU IH SCH (09:16)
--- NOTE | 2020-07-19 09:34 | Progress Note ---
Assessment and Plan Atypical chest pain: Negative MPI this admission Ascites s/p paracentesis Obstructive sleep apnea Cor pulmonale Tobacco use H/O alcohol abuse 01/2020 Echo: findings of cor pulmonale, with enlarged right heart chambers, tricuspid regurgitation and pulmonary hypertension. Well preserved left ventricular chamber size and systolic function ejection fraction reported at 45 to 50%. Conservative cardiac management. Subjective Date of service: 07/19/20 Interval history: Patient has no cardiac complaints. Discharge planning is in process. Objective Vital Signs Temp Pulse Pulse Pulse Pulse Resp Resp 07/19/20 09:16 07/19/20 09:10 81 07/19/20 09:09 81 07/19/20 09:07 81 81 16 07/19/20 08:34 97.6 F 82 20 07/19/20 04:06 98.3 F 89 16 07/19/20 00:00 89 07/18/20 23:54 07/18/20 23:53 98.1 F 85 16 07/18/20 22:00 89 89 20 07/18/20 21:09 07/18/20 21:08 91 H 18 07/18/20 20:03 97.2 F L 87 18 07/18/20 17:05 75 07/18/20 15:24 98.3 F 88 07/18/20 12:00 75 07/18/20 11:38 75 07/18/20 11:37 97.1 F L 18 07/18/20 10:00 89 89 17 BP Pulse Ox 07/19/20 09:16 92 07/19/20 09:10 110/64 07/19/20 09:09 110/64 07/19/20 09:07 97 07/19/20 08:34 108/77 95 07/19/20 04:06 95/71 95 07/19/20 00:00 07/18/20 23:54 93 07/18/20 23:53 120/83 80 L 07/18/20 22:00 96 07/18/20 21:09 94 07/18/20 21:08 07/18/20 20:03 102/77 85 07/18/20 17:05 110/73 07/18/20 15:24 108/76 96 07/18/20 12:00 07/18/20 11:38 102/74 90 07/18/20 11:37 94 07/18/20 10:00 96 - Physical Examination General: No Apparent Distress HEENT: Positive: PERRL Neck: Positive: neck supple Cardiac: Positive: Reg Rate and Rhythm Lungs: Positive: Decreased Breath Sounds Neuro: Positive: Grossly Intact Abdomen: Positive: Distended Extremities: Absent: edema - Labs and Meds Cardiac Enzymes 07/19/20 Range/Units 06:02 AST 35 (5-40) units/L CBC 07/19/20 Range/Units 06:02 WBC 4.1 L (4.5-11.0) K/mm3 RBC 4.04 (3.65-5.03) M/mm3 Hgb 13.3 (11.8-15.2) gm/dl Hct 38.8 (35.5-45.6) % Plt Count 171 (140-440) K/mm3 Comprehensive Metabolic Panel 07/19/20 Range/Units 06:02 Sodium 130 L (137-145) mmol/L Potassium 4.2 (3.6-5.0) mmol/L Chloride 92.0 L (98-107) mmol/L Carbon Dioxide 27 (22-30) mmol/L BUN 16 (9-20) mg/dL Creatinine 0.6 L (0.8-1.3) mg/dL Glucose 87 (75-100) mg/dL Calcium 8.4 (8.4-10.2) mg/dL AST 35 (5-40) units/L ALT 14 (7-56) units/L Alkaline Phosphatase 120 (35-129) units/L Total Protein 7.4 (6.3-8.2) g/dL Albumin 3.2 L (3.9-5) g/dL
[2020-07-19 10:10] LABS: Total Cells Counted 100
[2020-07-19 10:12] LABS: Poikilocytosis Few; Stomatocytes Rare; Target Cells Few
[2020-07-19 10:13] LABS: Platelet Estimate Consistent w Auto; Schistocytes Rare
--- NOTE | 2020-07-19 11:39 | Progress Note ---
Assessment and Plan Assessment and plan: 50-year-old male with known history of CHF, hypertension, COPD presenting to the emergency room today complaining of chest pain and shortness of breath. He has also been having some lower extremity swelling and abdominal swelling over the past 2 weeks. Patient indicates that he has been out of his medication for some time. Chest pain is about 4/10 in severity. Pain is substernal and worse on exertion. He has had associated shortness of breath. He denies any fever or chills, no nausea vomiting, no headache or dizziness, no diaphoresis. Patient denies any recent travel and no sick contacts. Denies any contact with anyone with COVID-19. Upon arrival in the emergency room patient was tachycardic and hypoxic. Work-up in the emergency room today reveals elevated BNP, CT angiogram of the chest reveals:1. No evidence of acute PTE. 2. Mild congestive heart failure superimposed on emphysema. 3. Small to moderate pericardial effusion and small pleural effusion. Upper abdominal ascites. Labs reveals elevated troponin. Patient is admitted with CHF exacerbation, non-ST elevation FL. 07/13: Patient seen and examined, reports improvement, Stress test report pending, outpatient pulmonary follow up, Anticipate discharge in am if improved. 07/14: Follow discussion with the patient we will resulted the patient does drink 6 packs of beer daily states he quit 2 months ago since he has been here no evidence of withdrawal noted. His abdomen is still protuberant and edematous with 2+ pitting edema bilateral lower extremity. Nevertheless he does have significant hypotension resulting in decrease of Lasix to daily. We will also obtain an abdominal ultrasound he did have an episode of shortness of breath last night and is on 2 L of oxygen right now will reevaluate with possible underlying cor pulmonale with congestive heart failure and probably COPD exacerbation. He also stated that he is not that much mobile at home. Will obtain physical therapy evaluation. We will watch 24 to 48 hours more. 07/15: Report of abdominal ultrasound:IMPRESSION: 1. Hepatomegaly. The hepatic parenchyma is diffusely heterogeneous indicative of hepatocellular disease.. 2. Abnormal appearance of the gallbladder. There is marked diffuse gallbladder wall thickening with single gallstone present. The appearance of the gallbladder is more suggestive of gallbladder wall thickening that is seen with severe hepatocellular disease rather than acute cholecystitis. However, clinical correlation is recommended. 3. Small to moderate amount of ascites noted within the abdomen. I have discussed this findings with the patient likely indicative of history of severe alcohol use. We will check an AFP for baseline. I have added spironolactone to the patient. While he has small to moderate ascites does not appear large enough to tap at this time. He understands that he may need paracentesis sometime in the future. I also discussed fluid restrictions to 1.2 L daily. He verbalized understanding. We will diurese for 1 more day and discharge in a.m.. Will perform a home O2 evaluation prior to discharge. 07/16: 50-year-old male admitted with chest pain or shortness of breath with presumably non-ST elevated FL stress test was negative. Ultrasound showed marked cirrhosis and mild to moderate ascites. Per cardiology patient also has underlying COPD CHF and hypertension and cor pulmonale. Patient is unable to tell me who his hunter trapper is. Considering patient's severe hypoxia will obtain hunter trapper to evaluate due to also underlying cor pulmonale. We will also obtain paracentesis diagnostic and therapeutic. Of advised the patient on the need to wear his oxygen. He has not been using the CPAP at night he states that this is because nobody places it on discussed with the nursing staff and will also discussed with the therapist also advised nursing to ensure compliance with this. His blood pressure precludes use of some of his medications have discontinued the amlodipine. He will get the spironolactone today we will monitor electrolytes. Likely can be discharged in the next 24 hours will likely need oxygen for discharge. We will also obtain an ABG 07/17. Patient is still needing oxygen to maintain sats. He complains of some shortness of breath with ambulation. Had paracentesis yesterday and he still has tense abdomen. He is on diuretics-Lasix and Aldactone. Cardiology and pulmonary recommendations appreciated. He will need a walk test to determine home O2 use. He will need to follow-up with GI as outpatient. 07/18. Needs oxygen. He will continue lasix and aldactone at discharge. Plan to dc when oxygen has been set up Problems --Acute exacerbation of CHF (congestive heart failure) Patient admitted and placed on telemetry. He has been started on diuretics. Will monitor inputs and outputs and also monitor daily weight. Echo done in 01/26/2020 reveals ejection fraction of 45 to 50%. Cardiology accommodations appreciated --NSTEMI (non-ST elevated myocardial infarction) Continue aspirin and nitroglycerin as needed Stress test showed negative myocardial ischemia ----Acute hypoxic respiratory failure Continue oxygen supplementation --COPD (chronic obstructive pulmonary disease) She will be placed on nebulizing treatments as needed. --Hepatocellular disease with ascites Likely cor pulmonale Paracentesis performed shows clear ascitic fluid with no signs of SBP Continue diuretics-Lasix and Aldactone GI evaluation as outpatient -Mild hyponatremia Likely from fluid overload Continue to trend --DVT prophylaxis -Heparin History Interval history: On lasix and aldactone Hospitalist Physical - Physical exam Narrative exam: VITAL SIGNS: Reviewed. GENERAL: Awake HEAD: No signs of head trauma. EYES: Pupils are equal. Extraocular motions intact. MOUTH: Oropharynx is normal. NECK: No adenopathy, no JVD. CHEST: Trace rales at the bases CARDIAC: normal S1 and S2, without murmurs, gallops, or rubs. ABDOMEN: Slight tense. BS = MUSCULOSKELETAL: Edema ++ NEUROLOGIC EXAM: Alert and oriented x3. No focal neurologic deficits SKIN: No obvious lesions - Constitutional Vitals: Temp Pulse Resp BP Pulse Ox 97.6 F 92 H 20 110/64 92 07/19/20 08:34 07/19/20 09:36 07/19/20 09:36 07/19/20 09:10 07/19/20 09:16 HEART Score - HEART Score EKG: Non-specific Age: 45-65 Risk factors: 1-2 risk factors Troponin: Troponin T 0.044 ng/mL (0.00-0.029) H 07/13/20 05:56 Troponin: 1-3x normal limit Results - Labs CBC & Chem 7: 07/19/20 06:02 07/19/20 06:02 Labs: Laboratory Last Values WBC 4.1 K/mm3 (4.5-11.0) L 07/19/20 06:02 RBC 4.04 M/mm3 (3.65-5.03) 07/19/20 06:02 Hgb 13.3 gm/dl (11.8-15.2) 07/19/20 06:02 Hct 38.8 % (35.5-45.6) 07/19/20 06:02 MCV 96 fl (84-94) H 07/19/20 06:02 MCH 33 pg (28-32) H 07/19/20 06:02 MCHC 34 % (32-34) 07/19/20 06:02 RDW 18.3 % (13.2-15.2) H 07/19/20 06:02 Plt Count 171 K/mm3 (140-440) 07/19/20 06:02 Lymph % (Auto) 21.8 % (13.4-35.0) 07/14/20 06:18 Sibley % (Auto) Hospital Nurse Liaison 07/19/20 06:02 Eos % (Auto) 1.2 % (0.0-4.3) 07/14/20 06:18 Baso % (Auto) 0.8 % (0.0-1.8) 07/14/20 06:18 Lymph # (Auto) 1.2 K/mm3 (1.2-5.4) 07/14/20 06:18 [place]y # (Auto) 0.8 K/mm3 (0.0-0.8) 07/14/20 06:18 Eos # (Auto) 0.1 K/mm3 (0.0-0.4) 07/14/20 06:18 Baso # (Auto) 0.0 K/mm3 (0.0-0.1) 07/14/20 06:18 Add Manual Diff Complete 07/19/20 06:02 Total Counted 100 07/19/20 06:02 Seg Neutrophils % 61.7 % (40.0-70.0) 07/14/20 06:18 Seg Neuts % (Manual) 60.0 % (40.0-70.0) 07/19/20 06:02 Lymphocytes % (Manual) 29.0 % (13.4-35.0) 07/19/20 06:02 Reactive Lymphs % (Man) 1.0 % 07/19/20 06:02 Monocytes % (Manual) 10.0 % (0.0-7.3) H 07/19/20 06:02 Nucleated RBC % Not Reportable 07/19/20 06:02 Seg Neutrophils # 3.5 K/mm3 (1.8-7.7) 07/14/20 06:18 Seg Neutrophils # Man 2.5 K/mm3 (1.8-7.7) 07/19/20 06:02 Band Neutrophils # 0.0 K/mm3 07/19/20 06:02 Lymphocytes # (Manual) 1.2 K/mm3 (1.2-5.4) 07/19/20 06:02 Abs React Lymphs (Man) 0.0 K/mm3 07/19/20 06:02 Monocytes # (Manual) 0.4 K/mm3 (0.0-0.8) 07/19/20 06:02 Eosinophils # (Manual) 0.0 K/mm3 (0.0-0.4) 07/19/20 06:02 Basophils # (Manual) 0.0 K/mm3 (0.0-0.1) 07/19/20 06:02 Metamyelocytes # 0.0 K/mm3 07/19/20 06:02 Myelocytes # 0.0 K/mm3 07/19/20 06:02 Promyelocytes # 0.0 K/mm3 07/19/20 06:02 Blast Cells # 0.0 K/mm3 07/19/20 06:02 WBC Morphology Not Reportable 07/19/20 06:02 Hypersegmented Neuts Not Reportable 07/19/20 06:02 Hyposegmented Neuts Not Reportable 07/19/20 06:02 Hypogranular Neuts Not Reportable 07/19/20 06:02 Smudge Cells Not Reportable 07/19/20 06:02 Toxic Granulation Not Reportable 07/19/20 06:02 Toxic Vacuolation Not Reportable 07/19/20 06:02 Dohle Bodies Not Reportable 07/19/20 06:02 Pelger-Huet Anomaly Not Reportable 07/19/20 06:02 Raul Rods Not Reportable 07/19/20 06:02 Platelet Estimate Consistent w auto 07/19/20 06:02 Clumped Platelets Not Reportable 07/19/20 06:02 Plt Clumps, EDTA Not Reportable 07/19/20 06:02 Large Platelets Not Reportable 07/19/20 06:02 Giant Platelets Not Reportable 07/19/20 06:02 Platelet Satelliting Not Reportable 07/19/20 06:02 Plt Morphology Comment Not Reportable 07/19/20 06:02 RBC Morphology Not Reportable 07/19/20 06:02 Dimorphic RBCs Not Reportable 07/19/20 06:02 Polychromasia Not Reportable 07/19/20 06:02 Hypochromasia Not Reportable 07/19/20 06:02 Poikilocytosis Few 07/19/20 06:02 Anisocytosis Not Reportable 07/19/20 06:02 Microcytosis Not Reportable 07/19/20 06:02 Macrocytosis Not Reportable 07/19/20 06:02 Spherocytes Not Reportable 07/19/20 06:02 Pappenheimer Bodies Not Reportable 07/19/20 06:02 Sickle Cells Not Reportable 07/19/20 06:02 Target Cells Few 07/19/20 06:02 Tear Drop Cells Not Reportable 07/19/20 06:02 Ovalocytes Not Reportable 07/19/20 06:02 Stomatocytes Rare 07/19/20 06:02 Helmet Cells Not Reportable 07/19/20 06:02 [place] Bodies Not Reportable 07/19/20 06:02 [place] Rings Not Reportable 07/19/20 06:02 Taniya Cells Not Reportable 07/19/20 06:02 Bite Cells Not Reportable 07/19/20 06:02 Crenated Cell Not Reportable 07/19/20 06:02 Elliptocytes Not Reportable 07/19/20 06:02 Acanthocytes (Spur) Not Reportable 07/19/20 06:02 Rouleaux Not Reportable 07/19/20 06:02 Hemoglobin C Crystals Not Reportable 07/19/20 06:02 Schistocytes Rare 07/19/20 06:02 Malaria parasites Not Reportable 07/19/20 06:02 Tani Bodies Not Reportable 07/19/20 06:02 Hem Pathologist Commnt No 07/19/20 06:02 PT 16.8 Sec. (12.2-14.9) H 07/14/20 06:18 INR 1.36 (0.87-1.13) H 07/14/20 06:18 APTT 30.7 Sec. (24.2-36.6) 07/12/20 21:20 Heparin Anti-Xa Level 0.38 U.I./ml (0.3-0.7) 07/13/20 15:30 ABG pH 7.415 (7.320-7.450) 07/16/20 14:01 POC ABG pCO2 45.9 mmHg (32.0-48.0) 07/16/20 14:01 POC ABG pO2 89.2 mmHg (83-108) 07/16/20 14:01 POC ABG HCO3 28.8 07/16/20 14:01 POC ABG Base Excess 3.5 07/16/20 14:01 ABG Hemoglobin 14.1 (12.0-17.5) 07/16/20 14:01 ABG Oxyhemoglobin 94.9 (94-98) 07/16/20 14:01 ABG Methemoglobin 0 (0.0-1.5) 07/16/20 14:01 ABG Sodium 132.0 mmol/L (136.0-145.0) L 07/16/20 14:01 ABG Potassium 3.5 mmol/L (3.40-4.50) 07/16/20 14:01 ABG Chloride 97.0 mmol/L (98-107) L 07/16/20 14:01 ABG Glucose 140 mg/dL (65-95) H 07/16/20 14:01 Carboxyhemoglobin 1.7 (0.5-1.5) H 07/16/20 14:01 FiO2 28.0 07/16/20 14:01 Sodium 130 mmol/L (137-145) L 07/19/20 06:02 Potassium 4.2 mmol/L (3.6-5.0) 07/19/20 06:02 Chloride 92.0 mmol/L (98-107) L 07/19/20 06:02 Carbon Dioxide 27 mmol/L (22-30) 07/19/20 06:02 Anion Gap 15 mmol/L 07/19/20 06:02 BUN 16 mg/dL (9-20) 07/19/20 06:02 Creatinine 0.6 mg/dL (0.8-1.3) L 07/19/20 06:02 Estimated GFR > 60 ml/min 07/19/20 06:02 BUN/Creatinine Ratio 27 % 07/19/20 06:02 Glucose 87 mg/dL (75-100) 07/19/20 06:02 POC Glucose 88 mg/dL (70-105) 07/19/20 07:39 Calcium 8.4 mg/dL (8.4-10.2) 07/19/20 06:02 Total Bilirubin 1.00 mg/dL (0.1-1.2) 07/19/20 06:02 AST 35 units/L (5-40) 07/19/20 06:02 ALT 14 units/L (7-56) 07/19/20 06:02 Alkaline Phosphatase 120 units/L (35-129) 07/19/20 06:02 Troponin T 0.044 ng/mL (0.00-0.029) H 07/13/20 05:56 NT-Pro-B Natriuret Pep 1547 pg/mL (0-900) H 07/18/20 05:29 Total Protein 7.4 g/dL (6.3-8.2) 07/19/20 06:02 Albumin 3.2 g/dL (3.9-5) L 07/19/20 06:02 Albumin/Globulin Ratio 0.8 % 07/19/20 06:02 Triglycerides 73 mg/dL (2-149) 07/12/20 21:20 Cholesterol 88 mg/dL (50-199) 07/12/20 21:20 LDL Cholesterol Direct 46 mg/dL (50-130) L 07/12/20 21:20 HDL Cholesterol 35 mg/dL (40-59) L 07/12/20 21:20 Cholesterol/HDL Ratio 2.51 % 07/12/20 21:20 Arterial Blood Glucose 140 mg/dL (65-95) H 07/16/20 14:01 Arterial Blood Ionized Calcium 4.5 mg/dL (4.6-5.3) L 07/16/20 14:01 Urine Color Darlene (Yellow) 07/12/20 22:50 Urine Turbidity Slightly-cloudy (Clear) 07/12/20 22:50 Urine pH 5.0 (5.0-7.0) 07/12/20 22:50 Ur Specific [place] 1.033 (1.003-1.030) H 07/12/20 22:50 Urine Protein >500 mg/dL (Negative) 07/12/20 22:50 Urine Glucose (UA) 50 mg/dL (Negative) 07/12/20 22:50 Urine Ketones Neg mg/dL (Negative) 07/12/20 22:50 Urine Blood Neg (Negative) 07/12/20 22:50 Urine Nitrite Neg (Negative) 07/12/20 22:50 Urine Bilirubin Sm (Negative) 07/12/20 22:50 Urine Ictotest Positive (Negative) 07/12/20 22:50 Urine Urobilinogen 4.0 mg/dL (<2.0) 07/12/20 22:50 Ur Leukocyte Esterase Neg (Negative) 07/12/20 22:50 Urine WBC (Auto) 14.0 /HPF (0.0-6.0) H 07/12/20 22:50 Urine RBC (Auto) 3.0 /HPF (0.0-6.0) 07/12/20 22:50 U Epithel Cells (Auto) < 1.0 /HPF (0-13.0) 07/12/20 22:50 Urine Mucus 3+ /HPF 07/12/20 22:50 Fluid Type Ascitic 07/16/20 Unknown Fluid Color Yellow 07/16/20 Unknown Fluid Appearance Clear 07/16/20 Unknown Fluid WBC 85 /mm3 07/16/20 Unknown Fluid RBC 4150 /mm3 07/16/20 Unknown Fluid Diff Comment 07/16/20 Unknown Fluid Seg Neutrophils 17.0 % 07/16/20 Unknown Fluid Lymphocytes 43.0 % 07/16/20 Unknown Fluid Reactive Lymphs 0 % 07/16/20 Unknown Fluid Monocytes 40.0 % 07/16/20 Unknown Fluid Eosinophils 0 % 07/16/20 Unknown Fluid Basophils 0 % 07/16/20 Unknown Fluid Comment Macrophage 07/16/20 Unknown Coronavirus (PCR) Negative (Negative) 07/14/20 09:20 Microbiology: Microbiology 07/16/20 Unknown Ascities Fluid Body Fluid Culture - Preliminary Carpio/IV: Voiding Method Urinal IV Catheter Type [Right INT / Saline Lock Forearm] Active Medications - Current Medications Current Medications: Generic Name Dose Route Start Last Admin Trade Name Freq PRN Reason Stop Dose Admin Acetaminophen 650 mg 07/13/20 00:18 Acetaminophen 325 Mg Tab PO Q4H PRN Pain MILD(1-3)/Fever >100.5/CRAIG Albuterol 2.5 mg 07/13/20 00:18 Albuterol 2.5 Mg/3 Ml Nebu IH Q4HRT PRN Shortness Of Breath Arformoterol Tartrate 15 mcg 07/13/20 09:00 07/19/20 09:16 Arformoterol 15 Mcg/2 Ml Nebu IH 15 mcg Q12HRT CONSUELO Administration Aspirin 325 mg 07/14/20 10:00 07/19/20 09:10 Aspirin Ec 325 Mg Tab PO 325 mg QDAY CONSUELO Administration Budesonide 0.5 mg 07/13/20 09:00 07/19/20 09:16 Budesonide 0.5 Mg/2 Ml Nebu IH 0.5 mg Q12HRT CONSUELO Administration Carvedilol 3.125 mg 07/13/20 08:00 07/19/20 09:10 Carvedilol 3.125 Mg Tab PO 3.125 mg BID@0800,1700 CONSUELO Administration Dextrose 0 ml 07/13/20 00:18 Dextrose 50% In Water (25gm) 50 Ml Syringe IV Q30MIN PRN Hypoglycemia Protocol Folic Acid 1 mg 07/13/20 10:00 07/19/20 09:09 Folic Acid 1 Mg Tab PO 1 mg QDAY CONSUELO Administration Furosemide 40 mg 07/18/20 22:00 07/19/20 09:10 Furosemide 40 Mg/4 Ml Inj IV 40 mg BID CONSUELO Administration Hydralazine HCl 10 mg 07/13/20 12:21 Hydralazine 20 Mg/1 Ml Inj IV Q4HR PRN HTN SYS>160 OR MANDIE>105 Insulin Human Lispro 0 unit 07/13/20 07:30 07/19/20 08:05 Insulin Lispro 100 Unit/Ml SUB-Q Not Given ACHS [facility] Protocol Lisinopril 20 mg 07/13/20 10:00 07/19/20 09:10 Lisinopril 20 Mg Tab PO 20 mg QDAY CONSUELO Administration Magnesium Hydroxide 30 ml 07/13/20 00:18 Magnesium Hydroxide (Mom) Oral Liqd Udc PO Q4H PRN Constipation Morphine Sulfate 2 mg 07/13/20 00:18 Morphine 2 Mg/1 Ml Inj IV Q5MIN PRN Chest Pain unrelieved by NTG Nitroglycerin 0.4 mg 07/13/20 00:18 Nitroglycerin 0.4 Mg Tab Subl SL Q5M PRN Chest Pain Ondansetron HCl 4 mg 07/13/20 00:18 Ondansetron 4 Mg/2 Ml Inj IV Q8H PRN Nausea And Vomiting Sodium Chloride 10 ml 07/13/20 10:00 07/19/20 09:11 Sodium Chloride 0.9% 10 Ml Flush Syringe IV 10 ml BID CONSUELO Administration Sodium Chloride 10 ml 07/13/20 00:18 07/13/20 06:41 Sodium Chloride 0.9% 10 Ml Flush Syringe IV 10 ml PRN PRN Administration LINE FLUSH Spironolactone 25 mg 07/15/20 10:00 07/19/20 09:09 Spironolactone 25 Mg Tab PO 25 mg QDAY CONSUELO Administration Nutrition/Malnutrition Assess - Dietary Evaluation Nutrition/Malnutrition Findings: Nutrition Notes Start: 07/13/20 11:38 Freq: Status: Active Protocol: Document 07/16/20 11:52 (Rec: 07/16/20 11:54 [email or web address]) Nutrition Notes Initial or Follow up Brief Note Current Diagnosis COPD,Heart Failure,Respiratory Failure Other Pertinent Diagnosis anasarca, hypoxia, NSTEMI Current Diet Cardiac Subjective/Other Information FU for intakes and diet advancement. Pt reports eating 100% of meals with no issues. Nutrition Intervention Anticipated Discharge Needs: Cardiac Revisit per MD consult or patient Sign Off request:
[2020-07-19 18:19] VITALS: BP 103/75
[2020-07-20 09:21] LABS: LDH,Body Fluid 131; Total Protein,Body Fluid < 3.0 (15.0-45.0); pH, Body Fluid 7.7
== END 2020-07-19 19:35 | disposition home or self-care (01) | DRG 280 ==
LOC: ED 21:01 → 4A 23:49
PROVIDERS: ADMIT Internal Medicine Geriatric Medicine; ATTEND Internal Medicine
PROC: 5A09357 Assistance with Respiratory Ventilation, Less than 24 Consecutive Hours, Continuous Positive Airway Pressure (ICD-10-PCS; 2020-07-14)
PROC: 5A09357 Assistance with Respiratory Ventilation, Less than 24 Consecutive Hours, Continuous Positive Airway Pressure (ICD-10-PCS; 2020-07-16)
PROC: 0W9G3ZZ Drainage of Peritoneal Cavity, Percutaneous Approach (ICD-10-PCS; 2020-07-16)
PROC: 4A033R1 Measurement of Arterial Saturation, Peripheral, Percutaneous Approach (ICD-10-PCS; principal; 2020-07-19)
DX: I21.4 Non-ST elevation (NSTEMI) myocardial infarction (principal); J96.01 Acute respiratory failure with hypoxia; I50.31 Acute diastolic (congestive) heart failure; I13.0 Hypertensive heart and chronic kidney disease with heart failure and stage 1 through stage 4 chronic kidney disease, or unspecified chronic kidney disease; E87.1 Hypo-osmolality and hyponatremia; R18.8 Other ascites; Z20.822 Contact with and (suspected) exposure to COVID-19; N18.9 Chronic kidney disease, unspecified; F17.200 Nicotine dependence, unspecified, uncomplicated; Z91.19 Patient's noncompliance with other medical treatment and regimen; E66.9 Obesity, unspecified; Z68.22 Body mass index [BMI] 22.0-22.9, adult; Z71.3 Dietary counseling and surveillance; I27.81 Cor pulmonale (chronic); M32.9 Systemic lupus erythematosus, unspecified
CPT/HCPCS: 36415; 36600; 49083; 71045; 71275; 76700; 78452; 80048; 80053; 80061; 81001; 82805; 82962; 83605; 83880; 84160; 84484; 85007; 85014; 85018; 85025; 85027; 85049; 85520; 85610; 85730; 87086; 87116; 88112; 88305; 89051; 93005; 93017; 94640; 94760; 96374; G0378; A9502; J1644; J1940; J2785; Q9967; U0003

== ENCOUNTER 2021-08-12 11:44 | Inpatient (IN) | payer SELFPAY ==
[~2021-08-12 11:44] MED LIST: ATROPINE 0.1% (1 MG/10 ML) CARDIAC SYRINGE ONE; EPINEPHrine 1 MG/10 ML SYRINGE ONE; LIDOCAINE PF 100 MG/5 ML (CARDIAC SYRINGE) IV ONE
[2021-08-12] MEDS ORDERED: MAGNESIUM SULFATE 2 GM/50 ML BAG IV ONE (11:50)
--- NOTE | 2021-08-12 12:09 | Emergency Department Report ---
ED CPR HPI - General Stated Complaint: CARDIC ARREST Time Seen by Provider: 08/12/21 12:02 - History of Present Illness Initial Comments: Patient was brought in by EMS with a history of cardiac arrest. They state that they were called for cardiac arrest. They arrived on scene to find the patient asystolic and unresponsive. They immediately started CPR. There was an unknown downtime prior to their arrival. They found the patient to be hypoglycemic. They administered multiple amps of D50 as well as epinephrine and bicarbonate. At 1127 they had return of spontaneous circulation with a pulse. They had done CPR for 27 minutes. Upon arrival, patient is unresponsive. He has a Ruddy airway in place. No CPR is in progress. He does have a pulse. History is obtained from EMS as the patient is nonverbal. - Related Data Previous Rx's Medication Instructions Recorded Last Taken Type Furosemide [Lasix] 20 mg PO DAILY #30 tablet 07/18/20 Unknown Rx Spironolactone [Aldactone] 25 mg PO QDAY #30 tablet 07/18/20 Unknown Rx Allergies Allergy/AdvReac Type Severity Reaction Status Date / Time No Known Allergies Allergy Verified 11/16/19 18:32 ED Review of Systems ROS: Stated complaint: CARDIC ARREST Other details as noted in HPI Comment: Unobtainable due to pts medical conditions (Cardiac arrest with Ruddy airway in place) ED Past Medical Hx - Past Medical History Hx Hypertension: Yes Hx Congestive Heart Failure: Yes Hx COPD: Yes Additional medical history: Per EMS, patient has a history of cirrhosis. Herpes 1 - Surgical History Additional Surgical History: left leg - Family History Family history: other (Cannot be obtained for the patient secondary to cardiac a rrest) - Social History Smoking Status: Current Every Day Smoker Substance Use Type: Marijuana - Medications Home Medications: Home Medications Medication Instructions Recorded Confirmed Last Taken Type Furosemide [Lasix] 20 mg PO DAILY #30 tablet 07/18/20 Unknown Rx Spironolactone [Aldactone] 25 mg PO QDAY #30 tablet 07/18/20 Unknown Rx ED Physical Exam - General Limitations: Physical Limitation (Cardiac arrest with Ruddy airway), Other (Pulse ox was hypoxic with bag ventilation) General appearance: cachectic, other (Unresponsive) - Head Head exam: Present: atraumatic, normocephalic - Eye Eye exam: Present: normal appearance. Absent: scleral icterus - ENT ENT exam: Present: normal external ear exam, other (Bloody drainage in the posterior pharynx with Ruddy airway in place) - Neck Neck exam: Present: normal inspection, other (Trachea midline) - Respiratory Respiratory exam: Present: decreased breath sounds, prolonged expiratory - Cardiovascular Cardiovascular Exam: Present: normal rhythm, bradycardia - GI/Abdominal GI/Abdominal exam: Present: soft, distended, other (Temp and it) - exam: Absent: scrotal swelling - Extremities Exam Extremities exam: Absent: pedal edema - Back Exam Back exam: Present: normal inspection - Neurological Exam Neurological exam: Present: other (Unresponsive) - Psychiatric Psychiatric exam: Present: other (Unresponsive) - Skin Skin exam: Present: other (Cool) ED Course Vital Signs 08/12/21 08/12/21 08/12/21 11:50 11:55 12:00 Temperature Pulse Rate 113 H 105 H Respiratory 13 Rate Blood Pressure 123/86 123/86 Blood Pressure [Left] O2 Sat by Pulse 76 L 99 60 L Oximetry 08/12/21 08/12/21 08/12/21 12:16 12:30 12:34 Temperature 95 F L Pulse Rate 108 H 109 H 109 H Respiratory 17 16 18 Rate Blood Pressure 123/86 117/90 Blood Pressure 117/90 [Left] O2 Sat by Pulse 63 L 86 Oximetry 08/12/21 08/12/21 08/12/21 12:35 12:40 12:45 Temperature Pulse Rate 110 H 110 H 111 H Respiratory 18 21 17 Rate Blood Pressure 121/87 118/88 121/86 Blood Pressure [Left] O2 Sat by Pulse 84 83 L 82 L Oximetry 08/12/21 08/12/21 08/12/21 12:50 12:55 13:00 Temperature Pulse Rate 112 H 113 H 113 H Respiratory 18 21 21 Rate Blood Pressure 114/86 113/85 113/86 Blood Pressure [Left] O2 Sat by Pulse 81 L 81 L 81 L Oximetry 08/12/21 13:08 Temperature Pulse Rate Respiratory 18 Rate Blood Pressure Blood Pressure [Left] O2 Sat by Pulse 82 L Oximetry - Reevaluation(s) Reevaluation #1: 08/12/21 12:04 EMS had been met upon arrival. CPR was no longer in progress as they had had return of spontaneous circulation. Accu-Chek was found to be 27. D10 was ordered as we do not have D50 currently. EMS had already administered D50 x2. Patient was intubated. Labs have been requested. He did have bradycardia x2 which required atropine. He was also given epinephrine. He never lost his pulse. He was placed on an epinephrine drip. We are preparing for central line. Carpio catheter and NG have been ordered. Old records noted. Reevaluation #2: 08/12/21 13:20 Central line was done. We are waiting labs. 08/12/21 13:29 Reevaluation #3: 08/12/21 14:19 Labs have been reviewed. Family has been contacted. At least a family member states that he is next of kin and wishes the patient to be DNR/DNI. However we do not have any paperwork or POA notification or authority to enforce that at this time. They have been asked to come to the hospital. Dr. Suarez was contacted for the admission. - Central Line Placement Right Femoral Consent Obtained: emergent situation Time Out Performed: No Patient Placed on Monitor/Pulse Ox: Yes MD Prep: mask, gown, gloves Central Line Prep: Chlorhexidine scrub Local Anesthesia Used: other anesthetic (Propofol drip) Ultrasound Used for Placement: No Central Line Lumen Inserted: triple Reason for Insertion: Emergency Venous Access Bloods Obtained for Lab: Yes Central Line Position: good blood return, all ports aspirated, flus, sutured in place with 2-0, other (Wire was removed intact) Dressing Applied: Tegaderm Post Procedure X-Ray: other (X-ray not indicated) Patient Tolerated Procedure: well, no complications Complications: none - Intubation Time Out Performed: No Sedative: none Paralytic: other (None) Laryngoscope: Chary Size: 3 ET Tube Size: 7.5 Other Airway Intervention: Cricoid pressure with suction of bloody contents. Patient was very anterio Tube Secured Depth (cm): 24 Tube Secured Location: lips Tube Placement Confirmation: visualized tube passing t, equal breath sounds bilat, no breath sounds over epi, confirmation by capnometr Patient Tolerated Procedure: well, other (Attempt was made with Glidescope which was unsuccessful) Intubation Complications: none ED Medical Decision Making - Lab Data Result diagrams: 08/12/21 13:15 08/12/21 13:15 Rhythm strip: Atrial fibrillation at a rate of 106. There is no ectopy noted. - EKG Data -: EKG Interpreted by Me - EKG Data 08/12/21 14:20 1152-EKG shows atrial fibrillation at 106. QRS is prolonged at 123 and the patient has a right bundle-branch block. QT corrected is prolonged at 564. There is no ST elevation to suggest STEMI. There is artifact noted. There is no old EKG for comparison. - Radiology Data Radiology results: report reviewed - Medical Decision Making Patient presents in cardiac arrest. Etiology for this is thought to be hypoglycemia based on EMS report. Downtime is unknown. He had at least 27 minutes of CPR with an unknown downtime prior to that. He did have return of spontaneous circulation. This was not an apparent V. fib or V. tach arrest. Cooling measures have not been implemented based on his initial rhythm of asystole. Patient is acidotic. He has been aggressively resuscitated with IV fluids. He has a central line in place. He will be admitted to the hospital. When family arrives, the hospitalist can have discussions about end-of-life care. Critical Care Time: Yes (55 minutes exclusive of all procedures) Critical care attestation.: If time is entered above; I have spent that time in minutes in the direct care of this critically ill patient, excluding procedure time. ED Disposition Clinical Impression: Cardiac arrest, Signs of return of spontaneous circulation, Hypoglycemia, Acidosis, lactic Disposition: ADMITTED INPATIENT Is pt being admited?: Yes Condition: Stable
[2021-08-12] MEDS ORDERED: VECURONIUM 10 MG INJ SDV IV ONE (12:32)
[2021-08-12] MEDS ORDERED: ETOMIDATE 20 MG/10 ML INJ IV ONE (12:32)
--- NOTE | 2021-08-12 12:44 | XRay Report ---
CHEST 1 VIEW INDICATION: OG placement. COMPARISON: 07/27/2020 FINDINGS: Support devices: The endotracheal tube terminates 4.5 cm superior to the nasim. Heart: Stable mild cardiomegaly. Lungs/Pleura: Bilateral congestive changes or lung infiltrates have developed. New small right pleura l effusion. No pneumothorax. Additional findings: None. IMPRESSION: Adequate placement of the endotracheal tube. Mild CHF is suspected. ABDOMEN 1 VIEW(S) INDICATION / CLINICAL INFORMATION: OG placement. COMPARISON: None available. FINDINGS: TUBES / LINES: The sidehole of the nasogastric tube terminates in the distal esophagus. The distal ti p terminates just beyond the GE junction. Advancement by 5-10 cm is recommended. BOWEL GAS PATTERN: No significant abnormality. FREE AIR / EXTRALUMINAL GAS: None seen. ADDITIONAL FINDINGS: No significant additional findings. IMPRESSION: Recommend advancement of the nasogastric tube as described. Signer Name: Pelon Hardin Jr, MD Signed: 08/12/2021 12:39 PM Workstation Name: [id number]
[2021-08-12 13:16] LABS: ABG Base Excess -20.5 mmol/L (-2.0-3.0); ABG HCO3 14.6 mmol/L (20.0-26.0); ABG Methemoglobin 1.1 % (0.0-1.5); ABG Oxygen Saturation 43.2 % (95.0-99.0); ABG PCO2 85.4 mm Hg; ABG PO2 45.2 mm Hg (80.0-90.0)
[2021-08-12 13:22] LABS: ABG PH 6.85 pH Units (7.350-7.450)
[2021-08-12] MEDS ORDERED: LACTATED RINGERS 1,000 ML IV ONE (13:32)
[2021-08-12 13:40] LABS: Hematocrit 39.1 % (35.5-45.6); Hemoglobin 12.4 gm/dl (11.8-15.2); Mean Corpuscular HGB Conc 32 % (32-34); Mean Corpuscular Volume 106 fl (84-94); Platelet Count 200 K/mm3 (140-440); Red Blood Count 3.68 M/mm3 (3.65-5.03); Red Cell Distribution Width 20.6 % (13.2-15.2)
[2021-08-12 13:51] LABS: INR 2.08 (0.87-1.13)
[2021-08-12 14:00] LABS: Alanine Aminotransferase 44 units/L (7-56); Albumin 2.8 g/dL (3.9-5); BUN/Creatinine Ratio 19; Blood Urea Nitrogen 27 mg/dL (9-20); Hemolysis Index 29
[2021-08-12 14:13] LABS: HDL Cholesterol 24 mg/dL (40-59); LDL Cholesterol,Direct 38 mg/dL (50-130)
[2021-08-12 14:14] LABS: Anisocytosis 1+; Band Neutrophils # (Manual) 0.4 K/mm3; Basophils % (Manual) 0 % (0.0-1.8); Eosinophils % (Manual) 0 % (0.0-4.3); Hypochromasia 1+; Myelocytes # (Manual) 0.1 K/mm3; Platelet Estimate Consistent w Auto; Total Cells Counted 100
[2021-08-12] MEDS ORDERED: MORPHINE 2 MG/1 ML INJ IV PRN (16:10)
[2021-08-12] MEDS ORDERED: ACETAMINOPHEN 325 MG TAB PO PRN (16:10)
[2021-08-12] MEDS ORDERED: ONDANSETRON 4 MG/2 ML INJ IV PRN (16:10)
[2021-08-12 16:32] VITALS: BP 108/72
[2021-08-12] MEDS ORDERED: SODIUM CHLORIDE 0.9% 1000 ML 1,000 ML IV SCH (17:00)
--- NOTE | 2021-08-12 17:49 | History and Physical Report ---
History of Present Illness Date of examination: 08/12/21 Date of admission: 08/12/21 16:10 Chief complaint: Unresponsive from 11 AM through 11:27 AM History of present illness: 51-year-old -[place] male with history of hypertension congestive heart failure, COPD and cirrhosis has not been doing well for the last 1 year as per the brother. Patient was found unresponsive and in cardiac arrest for unknown period of time and EMS was called. Patient apparently was down for about 20 to 30 minutes CPR was started around 1127 hrs. after CPR of 27 minutes patient was revived. Patient was intubated. In the emergency room ACLS protocol was continued-patient was intubated and return of spontaneous circulation happened. Blood pressure was 100/65. Patient sedated with propofol. No movements. Patient is holding his blood pressures 100 /P. 65 - Past Medical History --Hypertension: Yes --Congestive Heart Failure: Yes --COPD: Yes --Additional medical history: Per EMS, patient has a history of cirrhosis. Herpes 1 - Surgical History --Additional Surgical History: left leg - Family History --Family history: other (Cannot be obtained for the patient secondary to cardiac arrest) - Social History --Smoking Status: Current Every Day Smoker --Substance Use Type: Marijuana - Medications Home Medications: Home Medications Medication Instructions Recorded Confirmed Last Taken Type Furosemide [Lasix] 20 mg PO DAILY #30 tablet 07/18/20 Unknown Rx Spironolactone [Aldactone] 25 mg PO QDAY #30 tablet 07/18/20 Unknown Rx Review of Systems ROS: Stated complaint: CARDIC ARREST Other details as noted in HPI Comment: Unobtainable due to pts medical conditions (Cardiac arrest with Ruddy airway in place) Medications and Allergies Allergies Allergy/AdvReac Type Severity Reaction Status Date / Time No Known Allergies Allergy Verified 11/16/19 18:32 Home Medications Medication Instructions Recorded Confirmed Last Taken Type Furosemide [Lasix] 20 mg PO DAILY #30 tablet 07/18/20 Unknown Rx Spironolactone [Aldactone] 25 mg PO QDAY #30 tablet 07/18/20 Unknown Rx Active Meds: Active Medications Acetaminophen (Acetaminophen 325 Mg Tab) 650 mg PO Q4H PRN PRN Reason: Pain MILD(1-3)/Fever >100.5/CRAIG Famotidine (Famotidine 20 Mg/2 Ml Inj) 20 mg IV BID CONSUELO Heparin Sodium (Porcine) (Heparin 5,000 Unit/1 Ml Vial) 5,000 unit SUB-Q Q12HR CONSUELO Propofol (Diprivan 10 Mg/Ml) 1,000 mg in 100 mls @ 3.42 mls/hr IV TITR CONSUELO; Protocol Last Admin: 08/12/21 12:55 Dose: 10 mcg/kg/min, 3.42 mls/hr Sodium Chloride (Nacl 0.9% 1000 Ml) 1,000 mls @ 100 mls/hr IV DIRECT CONSUELO Cefepime HCl (Cefepime/Ns 2 Gm/100 Ml) 2 gm in 100 mls @ 200 mls/hr IV Q8H CONSUELO; Protocol Morphine Sulfate (Morphine 2 Mg/1 Ml Inj) 2 mg IV Q4H PRN PRN Reason: Pain, Moderate (4-6) Ondansetron HCl (Ondansetron 4 Mg/2 Ml Inj) 4 mg IV Q8H PRN PRN Reason: Nausea And Vomiting Sodium Chloride (Sodium Chloride 0.9% 10 Ml Flush Syringe) 10 ml IV BID CONSUELO Sodium Chloride (Sodium Chloride 0.9% 10 Ml Flush Syringe) 10 ml IV PRN PRN PRN Reason: LINE FLUSH Exam - Constitutional Vitals: Temp Pulse Resp BP Pulse Ox 95 F L 133 H 12 108/72 98 08/12/21 12:34 08/12/21 16:30 08/12/21 16:30 08/12/21 16:30 08/12/21 16:02 General appearance: Present: severe distress, well-nourished - EENT Eyes: Present: PERRL ENT: hearing intact, clear oral mucosa - Neck Neck: Present: supple, normal ROM - Respiratory Respiratory effort: normal Respiratory: bilateral: CTA - Cardiovascular Rhythm: regular Heart Sounds: Present: S1 & S2. Absent: rub, click - Extremities Extremities: pulses symmetrical, No edema Peripheral Pulses: within normal limits - Abdominal General gastrointestinal: Present: soft, non-tender, non-distended, normal bowel sounds Male genitourinary: Present: normal - Integumentary Integumentary: Present: clear, warm, dry - Musculoskeletal Musculoskeletal: gait normal, strength equal bilaterally - Psychiatric Psychiatric: appropriate mood/affect, intact judgment & insight - Neurologic Neurologic: CNII-XII intact, moves all extremities HEART Score - HEART Score Troponin: Troponin T 0.214 ng/mL (0.00-0.029) H* 08/12/21 13:15 Results - Labs CBC & Chem 7: 08/12/21 13:15 08/12/21 13:15 Labs: Laboratory Last Values WBC 9.4 K/mm3 (4.5-11.0) 08/12/21 13:15 RBC 3.68 M/mm3 (3.65-5.03) 08/12/21 13:15 Hgb 12.4 gm/dl (11.8-15.2) 08/12/21 13:15 Hct 39.1 % (35.5-45.6) 08/12/21 13:15 MCV 106 fl (84-94) H 08/12/21 13:15 MCH 34 pg (28-32) H 08/12/21 13:15 MCHC 32 % (32-34) 08/12/21 13:15 RDW 20.6 % (13.2-15.2) H 08/12/21 13:15 Plt Count 200 K/mm3 (140-440) 08/12/21 13:15 Add Manual Diff Complete 08/12/21 13:15 Total Counted 100 08/12/21 13:15 Seg Neuts % (Manual) 63.0 % (40.0-70.0) 08/12/21 13:15 Band Neutrophils % 4.0 % 08/12/21 13:15 Lymphocytes % (Manual) 19.0 % (13.4-35.0) 08/12/21 13:15 Reactive Lymphs % (Man) 0 % 08/12/21 13:15 Monocytes % (Manual) 4.0 % (0.0-7.3) 08/12/21 13:15 Eosinophils % (Manual) 0 % (0.0-4.3) 08/12/21 13:15 Basophils % (Manual) 0 % (0.0-1.8) 08/12/21 13:15 Metamyelocytes % 9.0 % 08/12/21 13:15 Myelocytes % 1.0 % 08/12/21 13:15 Promyelocytes % 0 % 08/12/21 13:15 Blast Cells % 0 % 08/12/21 13:15 Nucleated RBC % Not Reportable 08/12/21 13:15 Seg Neutrophils # Man 5.9 K/mm3 (1.8-7.7) 08/12/21 13:15 Band Neutrophils # 0.4 K/mm3 08/12/21 13:15 Lymphocytes # (Manual) 1.8 K/mm3 (1.2-5.4) 08/12/21 13:15 Abs React Lymphs (Man) 0.0 K/mm3 08/12/21 13:15 Monocytes # (Manual) 0.4 K/mm3 (0.0-0.8) 08/12/21 13:15 Eosinophils # (Manual) 0.0 K/mm3 (0.0-0.4) 08/12/21 13:15 Basophils # (Manual) 0.0 K/mm3 (0.0-0.1) 08/12/21 13:15 Metamyelocytes # 0.8 K/mm3 08/12/21 13:15 Myelocytes # 0.1 K/mm3 08/12/21 13:15 Promyelocytes # 0.0 K/mm3 08/12/21 13:15 Blast Cells # 0.0 K/mm3 08/12/21 13:15 WBC Morphology Not Reportable 08/12/21 13:15 Hypersegmented Neuts Not Reportable 08/12/21 13:15 Hyposegmented Neuts Not Reportable 08/12/21 13:15 Hypogranular Neuts Not Reportable 08/12/21 13:15 Smudge Cells Not Reportable 08/12/21 13:15 Toxic Granulation Not Reportable 08/12/21 13:15 Toxic Vacuolation Not Reportable 08/12/21 13:15 Dohle Bodies Not Reportable 08/12/21 13:15 Pelger-Huet Anomaly Not Reportable 08/12/21 13:15 Raul Rods Not Reportable 08/12/21 13:15 Platelet Estimate Consistent w auto 08/12/21 13:15 Clumped Platelets Not Reportable 08/12/21 13:15 Plt Clumps, EDTA Not Reportable 08/12/21 13:15 Large Platelets Not Reportable 08/12/21 13:15 Giant Platelets Not Reportable 08/12/21 13:15 Platelet Satelliting Not Reportable 08/12/21 13:15 Plt Morphology Comment Not Reportable 08/12/21 13:15 RBC Morphology Not Reportable 08/12/21 13:15 Dimorphic RBCs Not Reportable 08/12/21 13:15 Polychromasia Not Reportable 08/12/21 13:15 Hypochromasia 1+ 08/12/21 13:15 Poikilocytosis Not Reportable 08/12/21 13:15 Anisocytosis 1+ 08/12/21 13:15 Microcytosis Not Reportable 08/12/21 13:15 Macrocytosis Not Reportable 08/12/21 13:15 Spherocytes Not Reportable 08/12/21 13:15 Pappenheimer Bodies Not Reportable 08/12/21 13:15 Sickle Cells Not Reportable 08/12/21 13:15 Target Cells Not Reportable 08/12/21 13:15 Tear Drop Cells Not Reportable 08/12/21 13:15 Ovalocytes Not Reportable 08/12/21 13:15 Helmet Cells Not Reportable 08/12/21 13:15 Norris-[place] Bodies Not Reportable 08/12/21 13:15 [place] Rings Not Reportable 08/12/21 13:15 [place] Cells Not Reportable 08/12/21 13:15 Bite Cells Not Reportable 08/12/21 13:15 Crenated Cell Not Reportable 08/12/21 13:15 Elliptocytes Not Reportable 08/12/21 13:15 Acanthocytes (Spur) Not Reportable 08/12/21 13:15 Rouleaux Not Reportable 08/12/21 13:15 Hemoglobin C Crystals Not Reportable 08/12/21 13:15 Schistocytes Not Reportable 08/12/21 13:15 Malaria parasites Not Reportable 08/12/21 13:15 Tani Bodies Not Reportable 08/12/21 13:15 Hem Pathologist Commnt No 08/12/21 13:15 PT 26.1 Sec. (12.2-14.9) H 08/12/21 13:15 INR 2.08 (0.87-1.13) H 08/12/21 13:15 APTT 56.0 Sec. (24.2-36.6) H 08/12/21 13:15 ABG pH 6.850 pH Units (7.350-7.450) L* 08/12/21 13:00 ABG pCO2 85.4 mm Hg 08/12/21 13:00 ABG pO2 45.2 mm Hg (80.0-90.0) L 08/12/21 13:00 ABG HCO3 14.6 mmol/L (20.0-26.0) L 08/12/21 13:00 ABG O2 Saturation 43.2 % (95.0-99.0) L 08/12/21 13:00 ABG O2 Content 8.2 (0.0-44) 08/12/21 13:00 ABG Base Excess -20.5 mmol/L (-2.0-3.0) L 08/12/21 13:00 ABG Hemoglobin 14.0 gm/dl (14.0-18.0) 08/12/21 13:00 ABG Carboxyhemoglobin 3.0 % (0.0-5.0) 08/12/21 13:00 ABG Methemoglobin 1.1 % (0.0-1.5) 08/12/21 13:00 Oxyhemoglobin 41.4 % (95.0-99.0) L 08/12/21 13:00 FiO2 10 % 08/12/21 13:00 Sodium 128 mmol/L (137-145) L 08/12/21 13:15 Potassium 4.9 mmol/L (3.6-5.0) 08/12/21 13:15 Chloride 84.9 mmol/L (98-107) L 08/12/21 13:15 Carbon Dioxide 12 mmol/L (22-30) L 08/12/21 13:15 Anion Gap 36 mmol/L 08/12/21 13:15 BUN 27 mg/dL (9-20) H 08/12/21 13:15 Creatinine 1.4 mg/dL (0.8-1.3) H 08/12/21 13:15 Estimated GFR > 60 ml/min 08/12/21 13:15 BUN/Creatinine Ratio 19 % 08/12/21 13:15 Glucose 313 mg/dL (75-100) H 08/12/21 13:15 POC Glucose 259 mg/dL (70-105) H 08/12/21 13:18 Lactic Acid 16.60 mmol/L (0.7-2.0) H* 08/12/21 13:15 Calcium 8.0 mg/dL (8.4-10.2) L 08/12/21 13:15 Magnesium 4.00 mg/dL (1.7-2.3) H 08/12/21 13:15 Total Bilirubin 2.30 mg/dL (0.1-1.2) H 08/12/21 13:15 AST 153 units/L (5-40) H 08/12/21 13:15 ALT 44 units/L (7-56) 08/12/21 13:15 Alkaline Phosphatase 124 units/L (35-129) 08/12/21 13:15 Troponin T 0.214 ng/mL (0.00-0.029) H* 08/12/21 13:15 Total Protein 6.8 g/dL (6.3-8.2) 08/12/21 13:15 Albumin 2.8 g/dL (3.9-5) L 08/12/21 13:15 Albumin/Globulin Ratio 0.7 % 08/12/21 13:15 Triglycerides 79 mg/dL (2-149) 08/12/21 13:15 Cholesterol 65 mg/dL (50-199) 08/12/21 13:15 LDL Cholesterol Direct 38 mg/dL (50-130) L 08/12/21 13:15 HDL Cholesterol 24 mg/dL (40-59) L 08/12/21 13:15 Cholesterol/HDL Ratio 2.70 % 08/12/21 13:15 Assessment and Plan Assessment and plan: Critical care statement The high probability OF a clinically significant sudden or life-threatening deterioration of the cardiorespiratory system and endocrine system required my full and direct attention, intervention and postoperative management. The aggregate critical l care time was 40 minutes. The time is in addition to time spent performing reported procedures but includes the followin: Data review and interpretation 2: Patient assessment and monitoring of vital signs 3: Documentation 4:: Medication orders and management Advance Directives: Yes (DNR) VTE prophylaxis?: Chemical Plan of care discussed with patient/family: Yes - Patient Problems (1) Cardiac arrest Status: Acute Plan to address problem: Patient intubated and revived patient on pressors. Possible anoxic encephalopathy (2) Anoxic encephalopathy Status: Acute Plan to address problem: Patient had delayed CPR Highly likely that possible anoxic encephalopathy (3) Septic shock Status: Acute Plan to address problem: Highly likely that the patient has sepsis and shock associated with sepsis IV cefepime and vancomycin (4) DVT prophylaxis Status: Acute Plan to address problem: On heparin and GI prophylaxis (5) Advance care planning Status: Acute Plan to address problem: Extensive discussion was done with the family regarding the prognosis Family wanted withdrawal of care and DNR after considering all the options Withdrawal papers and DNR papers were signed by the son and and nurse and ER physician Dr. Elroy bill
[2021-08-12] MEDS ORDERED: CEFEPIME/NS 2 GM/100 ML 2 GM/100 ML BAG IV SCH (18:00)
[2021-08-12] MEDS ORDERED: FAMOTIDINE 20 MG/2 ML INJ IV SCH (22:00)
[2021-08-12] MEDS ORDERED: HEPARIN 5,000 UNIT/1 ML VIAL SUB-Q SCH (22:00)
--- NOTE | 2021-08-13 10:25 | Electrocardiograph Report ---
[facility] Test Date: 2021-08-12 Test Time: 11:52:10 Pat Name: ENZO HER Department: Room: [place] [address] Gender: M Boom Master: JESSICA : 1970 Requested By: YUE COSTELLO Order Number: [id number] Reading MD: Michael Medina Measurements Intervals [place] Rate: 106 P: MO: QRS: 95 QRSD: 123 T: 74 QT: 417 QTc: 564 Interpretive Statements afib Right bundle branch block Nonspecific T abnormalities, lateral leads No previous ECG available for comparison Electronically Signed On 08-13-2021 10:25:14 EST by Michael Medina
--- NOTE | 2021-08-14 14:50 | Death Summary ---
Summary - Providers Consults: 08/12/21 16:10 Consult to Physician [CONS] Routine Comment: Consulting Provider: DOUGLAS LINARES Physician Instructions: Reason For Exam: cardiac arrest Attending: YUE COSTELLO - summary Date of admission: 08/12/21 16:10 Date of : 08/12/21 Reason for admission: S/p cardiac arrest, anoxic encephalopathy, hypotension, septic shock Significant findings: Anoxia and hypoxia COVID-19 positive test (U07.1, COVID-19) with Acute Respiratory Failure (J96.00, Acute respiratory failure) (If sepsis present, add as separate assessment) , Hypotension Procedures/treatments rendered: Patient is intubated started on IV fluids IV Levophed and propofol and IV antibiotics - Final diagnosis (1) Cardiac arrest Note: Final diagnosis: (2) Anoxic encephalopathy Note: Final diagnosis: (3) Septic shock Note: Final diagnosis: (4) DVT prophylaxis Note: Final diagnosis: (5) Advance care planning Note: Final diagnosis:
== END 2021-08-12 18:05 | DRG 297 ==
LOC: ED 11:44 → CC1 16:10
PROVIDERS: ADMIT Internal Medicine; ATTEND Internal Medicine
PROC: 06HY33Z Insertion of Infusion Device into Lower Vein, Percutaneous Approach (ICD-10-PCS; principal; 2021-08-12)
PROC: 0BH17EZ Insertion of Endotracheal Airway into Trachea, Via Natural or Artificial Opening (ICD-10-PCS; 2021-08-12)
DX: I46.9 Cardiac arrest, cause unspecified (principal); E87.2 Acidosis; I11.0 Hypertensive heart disease with heart failure; I50.9 Heart failure, unspecified; J44.9 Chronic obstructive pulmonary disease, unspecified; F17.200 Nicotine dependence, unspecified, uncomplicated; K74.60 Unspecified cirrhosis of liver; E16.2 Hypoglycemia, unspecified
CPT/HCPCS: 36415; 71045; 74018; 80053; 80061; 82140; 82803; 82962; 83735; 84484; 85007; 85025; 85610; 85730; 93005; 94002; G0378; J3490; J0171; J0461; J2001; J2704; J3475; J7120